=== PATIENT | male | born 2000 | race Caucasian/White ===

== ENCOUNTER 2022-08-22 17:01 | Emergency (ER) | payer SELFPAY ==
[2022-08-22] MEDS ORDERED: METHYLPREDNISOLONE 125 MG INJ ONE (17:26)
[2022-08-22] MEDS ORDERED: NA CHLORIDE 0.9% 1,000 ML ONE (17:26)
[2022-08-22] MEDS ORDERED: FAMOTIDINE 20 MG/2 ML VIAL IV ONE (17:26)
[2022-08-22] MEDS ORDERED: DIPHENHYDRAMINE 50 MG/ML VIAL ONE (17:26)
--- NOTE | 2022-08-22 19:30 | ER ---
Nurse's Notes [facility] Name: Alexander Saldivar Age: 22 yrs Sex: Male : 2000 Arrival Date: 08/22/2022 Time: 17:03 Bed 13 Private MD: Diagnosis: Rash and other nonspecific skin eruption Presentation: 08/22 17:05 Chief complaint: Sudden onset itchy rash and SOB that started approx 90 minutes after hb taking zofran and bentyl. Coronavirus screen: At this time, the client does not indicate any symptoms associated with coronavirus-19. Ebola Screen: No symptoms or risks identified at this time. Risk Assessment: Do you want to hurt yourself or someone else? Patient reports no desire to harm self or others. Onset of symptoms was August 22, 2022. 17:05 Method Of Arrival: Ambulatory hb 17:05 Acuity: PEEWEE 2 hb 19:00 Initial Sepsis Screen: Does the patient meet any 2 criteria? No. Patient's initial ke1 sepsis screen is negative. Does the patient have a suspected source of infection? No. Patient's initial sepsis screen is negative. Historical: - Allergies: 17:06 No Known Allergies; hb - Immunization history:: Adult Immunizations up to date. - Social history:: Smoking status: Patient reports the use of cigarette tobacco products, smokes one-half pack cigarettes per day. Screenin:15 Abuse screen: Denies threats or abuse. Denies injuries from another. Nutritional ko1 screening: No deficits noted. Tuberculosis screening: No symptoms or risk factors identified. Fall Risk None identified. Assessment: 17:15 General: Appears distressed, uncomfortable, Behavior is cooperative, appropriate for ko1 age, anxious. Pain: Complains of pain in abdomen. Neuro: No deficits noted. Cardiovascular: Rhythm is sinus tachycardia. Respiratory: Airway is patent Respiratory effort is even, labored, Breath sounds are clear bilaterally. GI: No deficits noted. : No deficits noted. EENT: No deficits noted. Derm: Rash noted that is itchy, raised, on generalized. Musculoskeletal: No deficits noted. 18:00 Reassessment: Patient has improved, less short of breath, whelps have decreased in size ko1 and itching is subsiding. 19:41 Reassessment: Patient states feeling better. Patient states symptoms have improved. ke1 Vital Signs: 17:05 BP 151 / 90; Pulse 102; Resp 24; Temp 99; Pulse Ox 100% on R/A; Weight 86.18 kg; Height hb 6 ft. 3 in. (190.50 cm); Pain 7/10; 17:15 BP 160 / 88; Pulse 108; Resp 24; Pulse Ox 100% ; ko1 18:35 BP 124 / 79; Pulse 89; Resp 18; Pulse Ox 100% ; ko1 19:41 BP 108 / 62; Pulse 82; Resp 17; Temp 98.6; Pulse Ox 100% on R/A; Pain 0/10; ke1 17:05 Body Mass Index 23.75 (86.18 kg, 190.50 cm) hb ED Course: 17:03 Patient arrived in ED. am2 17:05 Saeed Barton PA is PHCP. [facility] [place] 17:05 Placido Garner MD is Attending Physician. [facility] 17:06 Triage completed. hb 17:07 Arm band placed on. hb 17:15 Patient has correct armband on for positive identification. Bed in low position. Call ko1 light in reach. Side rails up X 1. Client placed on continuous cardiac and pulse oximetry monitoring. NIBP monitoring applied. electronic device monitor on. 17:15 No provider procedures requiring assistance completed. Inserted saline lock: 20 gauge ko1 in right antecubital area, using aseptic technique. 17:18 Letha Gee, RN is Primary Nurse. ko1 19:42 IV discontinued. ke1 Administered Medications: 17:25 Drug: diphenhydrAMINE 25 mg Route: IVP; Site: right antecubital; ko1 17:25 Drug: NS 0.9% 1000 ml Route: IV; Rate: 1 bolus; Site: right antecubital; ko1 17:31 Drug: SOLU-Medrol (methylPrednisoLONE) 125 mg Route: IVP; Site: right antecubital; ko1 17:32 Drug: Pepcid (famotidine) 20 mg Route: IVP; Site: right antecubital; ko1 Medication: 17:15 VIS not applicable for this client. ko1 Intake: 18:44 IV: 1000ml (IV Fluid); Total: 1000ml. ko1 Outcome: 19:29 Discharge ordered by . [facility] 19:41 Discharged to home ambulatory. ke1 19:41 Condition: good 19:41 Discharge instructions given to patient. 19:42 Patient left the ED. ke1 Signatures: Saeed Barton PA PA jmm Baxter, Heather, RN RN hb Cathy Wilkerson am2 Davin Thibodeaux RN RN ke1 Letha Gee RN RN ko1 Corrections: (The following items were deleted from the chart) 17:09 17:05 Chief complaint: Sudden onset rash and SOB that started approx 90 minutes after hb taking zofran and bentyl. hb
--- NOTE | 2022-08-22 19:30 | EDPHYS ---
Physician Documentation [facility] Name: Alexander Saldivar Age: 22 yrs Sex: Male : 2000 Arrival Date: 08/22/2022 Time: 17:03 Bed 13 Private MD: ED Physician Placido Garner HPI: 08/22 17:07 This 22 yrs old Male presents to ER via Ambulatory with complaints of Breathing jmm Difficulty, Allergic Reaction. 17:07 The patient has shortness of breath at rest. Onset: The symptoms/episode began/occurred jmm acutely, just prior to arrival, today. This is a 22-year-old male with history of depression presents ED with complaints of acute onset rash, shortness of breath. Patient states that he had a episode of abdominal pain, took Bentyl and Zofran. Patient quickly developed a generalized rash with itching. Patient states his abdominal pain is now currently resolved.. Historical: - Allergies: 17:06 No Known Allergies; hb - Immunization history:: Adult Immunizations up to date. - Social history:: Smoking status: Patient reports the use of cigarette tobacco products, smokes one-half pack cigarettes per day. ROS: 17:07 Constitutional: Negative for fever, chills, and weight loss, Cardiovascular: Negative jmm for chest pain, palpitations, and edema. 17:07 Respiratory: Positive for shortness of breath. 17:07 Skin: Positive for erythema, rash. 17:07 All other systems are negative. Exam: 17:07 Constitutional: This is a well developed, well nourished patient who is awake, alert, jmm and in no acute distress. Head/Face: atraumatic. Eyes: EOMI, no conjunctival erythema appreciated ENT: Moist Mucus Membranes Neck: Trachea midline, Supple Chest/axilla: Normal chest wall appearance and motion. Cardiovascular: Regular rate and rhythm. No edema appreciated Respiratory: Normal respirations, no respiratory distress appreciated Abdomen/GI: Non distended Back: Normal ROM 17:07 MS/ Extremity: Moves all extremities, no obvious deformities appreciated, no edema noted to the lower extremities Neuro: Awake and alert Psych: Behavior is normal, Mood is normal, Patient is cooperative and pleasant 17:07 Skin: and is diffusely located. Vital Signs: 17:05 BP 151 / 90; Pulse 102; Resp 24; Temp 99; Pulse Ox 100% on R/A; Weight 86.18 kg; Height hb 6 ft. 3 in. (190.50 cm); Pain 7/10; 17:15 BP 160 / 88; Pulse 108; Resp 24; Pulse Ox 100% ; ko1 18:35 BP 124 / 79; Pulse 89; Resp 18; Pulse Ox 100% ; ko1 19:41 BP 108 / 62; Pulse 82; Resp 17; Temp 98.6; Pulse Ox 100% on R/A; Pain 0/10; ke1 17:05 Body Mass Index 23.75 (86.18 kg, 190.50 cm) hb MDM: 17:07 Patient medically screened. [facility] 19:28 Data reviewed: vital signs, nurses notes. Counseling: I had a detailed discussion with riley the patient and/or guardian regarding: the historical points, exam findings, and any diagnostic results supporting the discharge/admit diagnosis, the need for outpatient follow up, to return to the emergency department if symptoms worsen or persist or if there are any questions or concerns that arise at home. ED course: Patient states feeling much better. Abdominal pain is resolved. Patient declined for further evaluation. Will follow with PCP and otherwise given strict return precautions. Patient sugars Medicare. 08/22 17:09 Order name: Saline Lock; Complete Time: 17:23 [facility] Administered Medications: 17:25 Drug: diphenhydrAMINE 25 mg Route: IVP; Site: right antecubital; ko1 17:25 Drug: NS 0.9% 1000 ml Route: IV; Rate: 1 bolus; Site: right antecubital; ko1 17:31 Drug: SOLU-Medrol (methylPrednisoLONE) 125 mg Route: IVP; Site: right antecubital; ko1 17:32 Drug: Pepcid (famotidine) 20 mg Route: IVP; Site: right antecubital; ko1 Disposition: 08/23 07:02 Co-signature as Attending Physician, Placido Garner MD. rn Disposition Summary: 08/22/22 19:29 Discharge Ordered Location: Home [facility] Condition: Stable jmm Diagnosis - Rash and other nonspecific skin eruption jmm Followup: jmm - With: Private Physician - When: 1 - 2 days - Reason: Recheck today's complaints, Continuance of care, Re-evaluation by your physician Discharge Instructions: - Discharge Summary Sheet [facility] - Allergies, Adult jmm - Rash, Adult [facility] Forms: - Medication Reconciliation Form [facility] - Thank You Letter [facility] - Antibiotic Education [facility] - Prescription Opioid Use [facility] Prescriptions: - Hydroxyzine HCl 25 mg Oral Tablet - take 1 tablet by ORAL route every 6 hours As needed; 30 tablet; Refills: 0, [facility] Product Selection Permitted - Pepcid 20 mg Oral Tablet - take 1 tablet by ORAL route every 12 hours As needed; 30 tablet; Refills: 0, [facility] Product Selection Permitted - Prednisone 20 mg Oral Tablet - take 3 tablets by ORAL route once daily for 5 days; 15 tablet; Refills: 0, [facility] Product Selection Permitted Signatures: Saeed Barton PA PA jmm Nieto, Roman, MD MD rn Baxter, Heather RN RN Letha Ovalle RN RN ko1
[2022-08-22 19:50] VITALS: O2SAT 100
[2022-08-22 19:55] VITALS: BP 108/62; TEMP 98.6
== END 2022-08-22 19:42 | disposition home or self-care (01) ==
LOC: ER 17:01
DX: R21 Rash and other nonspecific skin eruption (principal); R06.02 Shortness of breath; F17.210 Nicotine dependence, cigarettes, uncomplicated
CPT/HCPCS: 96374; 96375; 99284; J1200; J2930; J7030

== ENCOUNTER 2022-09-06 00:39 | Emergency (ER) | payer SELFPAY ==
--- OUTSIDE RECORDS SUMMARY | 2022-09-06 00:42 | XMS REPORT | Continuity of Care Document ---
:[address] [facility] t Address [address] [place] [address] Care Team Providers Name Role Phone NONSTAFF Primary Care Physician Unavailable TAMY CALLEJAS Attending Clinician Unavailable CRISTOFER VEGA Attending Clinician Unavailable YOLA Attending Clinician Unavailable VIOLETTA HAINES V Attending Clinician Unavailable YOLA Admitting Clinician Unavailable Payers Payer Name Policy Type Policy Effective Date Expiration Date Sour ce Number [place] [id number] 2018 ADVANTAGE (HMO) 00:00:00 [facility] [id number] [address] [id number] 2018 [facility] 00:00:00 Patient [facility] Problems This patient has no known problems. Allergies, Adverse Reactions, Alerts This patient has no known allergies or adverse reactions. Medications This patient has no known medications. Procedures This patient has no known procedures. Encounters Start End Encounter Admission Attending Care Care Encounter Source Date/Time Date/Time Type Type Clinicians Facility Department ID 2022-09-09 Inpatient TOM CALLEJAS [facility] [id number] [place] 08:00:00 TAMY [id number] [facility] 2022-08-13 Inpatient CRISTOFER BARTH [facility] [id number] [place] 10:30:00 [id number] [facility] 2020-08-06 2020-08-06 Outpatient SOLIS_SMITH MEHOP MEHOP [id number] [place] 05:03:00 05:03:00 _DAIN [id number] [facility] 2020-08-06 2020-08-06 Outpatient SOLIS_SMITH DEHOP MEHOP 104 [id number] [place] 05:03:00 05:03:00 _DAIN [id number] [facility] 2020-03-19 2020-03-19 Outpatient SOLIS_SMITH DEHOP [facility] 104 [id number] [place] 04:46:00 04:46:00 _DAIN [id number] [facility] 2019-01-10 2019-01-10 Departed DALEALLYJuan Pablo [facility] [id number] 11:35:00 15:45:00 Emergency VIOLETTA Lujan [place] [facility] Results Test Description Test Time Test Comments Results Result Sour e Comments CT SOFT TISSUE 2019-01-10 [facility] Patients NEXK WITH-HOPD 15:05:00 Medical [place] [address] Patient Name: JONO ZULETA MR #: [id number] : 2000 Age/Sex: 18/M Req #: [id number] Adm Physician: Ordered by: VIOLETTA HAINES MD Report #: [id number] Location: [facility] Room/Bed: Procedure: [id number] HOPD/CT SOFT TISSUE NEXK WITH-HOPD Exam Date: 01/10/19 Exam Time: 1300 REPORT STATUS: Signed CT SOFT TISSUE NECK WITH-HOPD HISTORY: Throat swelling COMPARISON: None. TECHNIQUE: Axial CT images were obtained through the neck with intravenous, iodine based contrast. Coronal and sagittal reconstructions obtained from the axial data. One or more of the following dose reduction techniques were used: Automated exposure control, adjustment of the mA and/or kV according to patient size, and/or utilization of iterative reconstruction technique. 100 mL of Isovue-370 were administered. DISCUSSION: The adenoid, palatine, and lingual tonsils are mildly prominent. Otherwise, the visualized upper aerodigestive tract is unremarkable. No discrete drainable fluid collection is identified. A few mildly prominent bilateral upper jugular chain lymph nodes may be reactive. No other radiographically significant cervical adenopathy is seen. The thyroid gland is unremarkable. The submandibular and parotid glands are unremarkable. The major cervical vessels are unremarkable. The topology professor, parapharyngeal, posterior cervical, and perivertebral spaces are unremarkable. The visualized intracranial compartment is grossly unremarkable. The paranasal sinuses are clear. No destructive osseous lesions are seen. The upper lungs are unremarkable. IMPRESSION: 1. Mildly prominent adenoid, palatine, and lingual tonsils. No discrete drainable fluid collection. 2. The visualized upper aerodigestive tract is otherwise unremarkable. 3. Mildly prominent bilateral upper jugular chain lymph nodes may be reactive. Signed by: Dr. Jakob Horowitz M.D. on 01/10/2019 3:10 PM Dictated By: JAKOB HOROWITZ MD 1510 Transcribed By: IGGY on 01/10/19 1510 COPY TO: VIOLETTA HAINES MD
[2022-09-06] MEDS ORDERED: NA CHLORIDE 0.9% 1,000 ML ONE ×2 (01:42→04:03)
[2022-09-06] MEDS ORDERED: FAMOTIDINE 20 MG/2 ML VIAL IV ONE (01:42)
[2022-09-06] MEDS ORDERED: ONDANSETRON 4 MG/2 ML VIAL ONE (01:42)
[2022-09-06] MEDS ORDERED: MORPHINE 4 MG/ML SYR ONE (01:44)
[2022-09-06] MEDS ORDERED: HYDROMORPHONE HCL 1 MG/ML INJ ONE (02:21)
[2022-09-06 02:24] LABS: Absolute Lymphocytes (CBC) 2.1 K/uL (0.7-4.9); Hematocrit 45.2 % (39.6-49.0); Lymphocytes % 14.2 % (15.3-44.8); MPV 8.4 fL (7.6-11.3); RBC Red Blood Cell Count 5.13 M/uL (4.33-5.43)
[2022-09-06 02:37] LABS: Albumin 4.3 g/dL (3.4-5.0); Bilirubin Total 0.4 mg/dL (0.2-1.0); Potassium 3.9 mmol/L (3.5-5.1); Protein, Total 8.2 g/dL (6.4-8.2)
--- NOTE | 2022-09-06 04:06 | ER ---
Nurse's Notes [facility] Name: Alexander Saldivar Age: 22 yrs Sex: Male : 2000 Arrival Date: 09/06/2022 Time: 00:43 Bed 14 Private MD: Diagnosis: Pneumomediastinum;Abdominal pain, Generalized;Upper abdominal pain, unspecified;Epigastric pain Presentation: 09/06 01:36 Chief complaint: Patient states: I have the worst pain right here(epigastric) It aa9 started today at 2 PM but its been happening for 4 months now, they have a hiatus scan scheduled like weeks from now, but the pain is really bad today. I have been throwing up and I have diarrhea. Coronavirus screen: Vaccine status: Patient reports being unvaccinated. Ebola Screen: No symptoms or risks identified at this time. Initial Sepsis Screen: Does the patient meet any 2 criteria? No. Patient's initial sepsis screen is negative. Does the patient have a suspected source of infection? No. Patient's initial sepsis screen is negative. Risk Assessment: Do you want to hurt yourself or someone else? Patient reports no desire to harm self or others. Onset of symptoms was September 06, 2022. 01:36 Method Of Arrival: Ambulatory aa9 01:36 Acuity: PEEWEE 3 aa9 Historical: - Allergies: 02:18 Bentyl; aa9 - Home Meds: 01:38 None [Active]; aa9 - PMHx: 01:38 None; aa9 - PSHx: 01:38 wisdom teeth removal; aa9 - Immunization history:: Client reports having NOT received the Covid vaccine. - Social history:: Smoking status: Patient reports the use of cigarette tobacco products, 1 pack a week. Screenin:39 Abuse screen: Denies threats or abuse. Denies injuries from another. Nutritional aa9 screening: No deficits noted. Tuberculosis screening: No symptoms or risk factors identified. Fall Risk None identified. Assessment: 01:44 General: Appears uncomfortable, Behavior is appropriate for age, anxious. aa9 01:44 Pain: Complains of pain in epigastric area Pain currently is 7 out of 10 on a pain aa9 scale. Quality of pain is described as stabbing, Pain began 1 day ago. Is continuous, Aggravated by eating, drinking, increased activity, Noted to be grimacing, guarding, moaning, Also complains of nausea. Neuro: Level of Consciousness is awake, alert, obeys commands, Oriented to person, place, time, situation. Cardiovascular: Patient's skin is warm and dry. Respiratory: Airway is patent Respiratory effort is even, unlabored. GI: Bowel sounds present X 4 quads. Abd is soft X 4 quads Abdomen is tender to palpation in epigastric area. : No signs and/or symptoms were reported regarding the genitourinary system. EENT: No signs and/or symptoms were reported regarding the EENT system. Derm: No signs and/or symptoms reported regarding the dermatologic system. Musculoskeletal: No signs and/or symptoms reported regarding the musculoskeletal system. 02:03 Reassessment: Patient appears in no apparent distress at this time. pt states,"The pain aa9 medicine seems to be helping.". General: Appears in no apparent distress. comfortable, Behavior is calm, cooperative, appropriate for age. Neuro: Level of Consciousness is awake, alert, obeys commands, Oriented to person, place, time, situation. Respiratory: Airway is patent Respiratory effort is even, unlabored. 02:10 General: Appears distressed, uncomfortable, Behavior is crying, pt states the pain came aa9 back worse, I feel like there is a hot knife in my stomach, This is the worst pain in my life, It was never returned like this before. . 02:10 Pain: Complains of pain in abdomen Pain radiates to back and pelvis Pain currently is aa9 10 out of 10 on a pain scale. Noted to be crying, grimacing. 02:29 Reassessment: Patient appears in no apparent distress at this time. pt states,"It feels aa9 a ton better now." Patient states feeling better. General: Appears uncomfortable, Behavior is calm, cooperative, appropriate for age. 04:34 Reassessment: Patient appears in no apparent distress at this time. pt aware of aa9 diagnosis and need for transfer, denies concerns, father at bedside denies concerns, understands diagnosis. Neuro: Level of Consciousness is awake, alert, obeys commands, Oriented to person, place, time, situation. Respiratory: Airway is patent Respiratory effort is even, unlabored. 07:03 Reassessment: attempted to give report. aa9 07:05 Reassessment: No changes from previously documented assessment. Report received from ll1 night monitor RN. Vital Signs: 01:30 BP 107 / 82; Pulse 62; Resp 16 S; Pulse Ox 100% on R/A; Pain 7/10; aa9 01:36 BP 107 / 82; Pulse 80; Resp 18 S; Temp 98.2(O); Pulse Ox 98% on R/A; Weight 86.18 kg aa9 (R); Height 6 ft. 3 in. (190.50 cm) (R); Pain 7/10; 02:05 BP 123 / 86; Pulse 66; Resp 16 S; Pulse Ox 100% on R/A; Pain 2/10; aa9 03:00 BP 124 / 76; Pulse 65; Resp 16 S; Pulse Ox 97% on R/A; aa9 04:30 BP 127 / 82; Pulse 64; Resp 16 S; Pulse Ox 97% on R/A; aa9 06:42 BP 121 / 79; Pulse 62; Resp 16 S; Temp 98.6; Pulse Ox 98% on R/A; aa9 01:36 Body Mass Index 23.75 (86.18 kg, 190.50 cm) aa9 ED Course: 00:43 Patient arrived in ED. ja2 01:20 Joey Stuart MD is Attending Physician. kdr 01:36 Arabella Mcgraw, RN is Primary Nurse. aa9 01:38 Triage completed. aa9 01:39 Arm band placed on. aa9 01:39 Patient has correct armband on for positive identification. Bed in low position. Adult aa9 w/ patient. 01:54 Inserted saline lock: 20 gauge in right antecubital area, using aseptic technique. aa9 Blood collected. 01:59 CBC with Diff Sent. aa9 01:59 CMP Sent. aa9 01:59 Lipase Sent. aa9 02:30 Diet: Patient given ice chips. aa9 02:30 Diet: Tolerated well. aa9 03:10 Diet: Patient given snack. Tolerated well. aa9 04:24 Inserted saline lock: 20 gauge in left antecubital area, using aseptic technique. kd3 04:29 CT Abd/Pelvis - IV Contrast Only In Process Unspecified. EDMS 04:44 CT Chest W/ Con In Process Unspecified. EDMS 05:22 SARS RAPID Sent. aa9 07:36 No provider procedures requiring assistance completed. Patient transferred, IV remains ll1 in place. Administered Medications: 02:01 Drug: NS 0.9% 1000 ml Route: IV; Rate: 1 bolus; Site: right antecubital; aa9 04:28 Follow up: Response: No adverse reaction; IV Status: Completed infusion; IV Intake: aa9 1000ml 02:01 Drug: Zofran (Ondansetron) 4 mg Route: IVP; Site: right antecubital; aa9 02:17 Follow up: Response: No adverse reaction aa9 02:02 Drug: Pepcid (famotidine) 20 mg Route: IVP; Site: right antecubital; aa9 02:17 Follow up: Response: No adverse reaction aa9 02:17 Drug: morphine 4 mg Route: IVP; Infused Over: 4 mins; Site: left antecubital; aa9 02:17 Follow up: Response: No adverse reaction aa9 02:25 Drug: Dilaudid (HYDROmorphone) 1 mg Route: IVP; Site: right antecubital; aa9 03:09 Follow up: Response: No adverse reaction; Pain is decreased aa9 04:06 Drug: NS 0.9% 1000 ml Route: IV; Rate: 1 bolus; Site: right antecubital; aa9 06:44 Follow up: IV Status: Completed infusion; IV Intake: 1000ml aa9 04:50 Drug: Ampicillin 2 grams Route: IVPB; Infused Over: 30 mins; Site: left antecubital; aa9 05:21 Follow up: Response: No adverse reaction; IV Status: Completed infusion; IV Intake: aa9 100ml 04:50 Drug: Clindamycin 900 mg Route: IVPB; Infused Over: 30 mins; Site: right antecubital; aa9 05:22 Follow up: Response: No adverse reaction; IV Status: Completed infusion; IV Intake: aa9 100ml 05:22 Drug: Gentamicin 1 mg/kg Route: IVPB; Infused Over: 30 mins; Site: left antecubital; aa9 06:44 Follow up: Response: No adverse reaction; IV Status: Completed infusion; IV Intake: aa9 100ml Medication: 02:04 VIS not applicable for this client. aa9 Intake: 04:28 IV: 1000ml; Total: 1000ml. aa9 05:21 IV: 100ml; Total: 1100ml. aa9 05:22 IV: 100ml; Total: 1200ml. aa9 06:44 IV: 1000ml; Total: 2200ml. aa9 06:44 IV: 100ml; Total: 2300ml. aa9 Outcome: 04:06 ER care complete, transfer ordered by . kdr 07:36 Transferred by ground EMS to [facility], Transfer form completed. [facility] 07:36 Transferred Note: report called to Chuck Rogers RN. 07:36 Condition: stable 07:36 Instructed on the need for transfer. 08:39 Patient left the ED. 1 Signatures: Dispatcher [employer] EDMS Joey Stuatr MD MD kdr Liliane Yoo RN RN ll1 Yaar Tracy Kyli, RN RN kd3 Arabella Mcgraw RN RN aa9
--- NOTE | 2022-09-06 04:06 | EDPHYS ---
Physician Documentation [facility] Name: Alexander Saldivar Age: 22 yrs Sex: Male : 2000 Arrival Date: 09/06/2022 Time: 00:43 Bed 14 Private MD: ED Physician Joey Stuart HPI: 09/06 04:07 This 22 yrs old Male presents to ER via Ambulatory with complaints of Abdominal Pain, kdr Vomiting. 04:07 Patient has been throwing up and having diarrhea since midday. Patient states that he kdr has been having intermittent abdominal pain for the last 4 months. He has had a gallbladder ultrasound and is awaiting a HIDA scan that is scheduled in the next few weeks. Today since 2 PM, he has been vomiting and with significant upper abdominal/epigastric pain. He is also had occasional diarrhea.. Onset: The symptoms/episode began/occurred suddenly, today. Severity of symptoms: At their worst the symptoms were moderate severe incapacitating in the emergency department the symptoms are unchanged. The patient has not experienced similar symptoms in the past. The patient has been recently seen by a physician: the patient's primary care provider. Historical: - Allergies: 02:18 Bentyl; aa9 - Home Meds: 01:38 None [Active]; aa9 - PMHx: 01:38 None; aa9 - PSHx: 01:38 wisdom teeth removal; aa9 - Immunization history:: Client reports having NOT received the Covid vaccine. - Social history:: Smoking status: Patient reports the use of cigarette tobacco products, 1 pack a week. ROS: 04:07 Constitutional: Negative for fever, chills, and weight loss, Eyes: Negative for injury, kdr pain, redness, and discharge, ENT: Negative for injury, pain, and discharge, Neck: Negative for injury, pain, and swelling, Cardiovascular: Negative for chest pain, palpitations, and edema, Respiratory: Negative for shortness of breath, cough, wheezing, and pleuritic chest pain, Back: Negative for injury and pain, : Negative for injury, bleeding, discharge, and swelling, MS/Extremity: Negative for injury and deformity, Skin: Negative for injury, rash, and discoloration, Neuro: Negative for headache, weakness, numbness, tingling, and seizure activity. Psych: Negative for depression, anxiety, suicide ideation, homicidal ideation, and hallucinations, Allergy/Immunology: Negative for hives, rash, and allergies, Endocrine: Negative for neck swelling, polydipsia, polyuria, polyphagia, and marked weight changes, Hematologic/Lymphatic: Negative for swollen nodes, abnormal bleeding, and unusual bruising. 04:07 Abdomen/GI: Positive for abdominal pain, nausea and vomiting, diarrhea, Negative for abdominal distension, anorexia, dysphagia, hematemesis, rectal bleeding, bowel incontinence. Exam: 04:08 Constitutional: This is a well developed, well nourished patient who is awake, alert, kdr and in moderate to severe distress. Head/Face: Normocephalic, atraumatic. Eyes: Pupils equal round and reactive to light, extra-ocular motions intact. Lids and lashes normal. Conjunctiva and sclera are non-icteric and not injected. Cornea within normal limits. Periorbital areas with no swelling, redness, or edema. Neck: Trachea midline, no thyromegaly or masses palpated, and no cervical lymphadenopathy. Supple, full range of motion without nuchal rigidity, or vertebral point tenderness. No Meningismus. Chest/axilla: Normal chest wall appearance and motion. Nontender with no deformity. No lesions are appreciated. Cardiovascular: Regular rate and rhythm with a normal S1 and S2. No gallops, murmurs, or rubs. Normal PMI, no JVD. No pulse deficits. Respiratory: Lungs have equal breath sounds bilaterally, clear to auscultation and percussion. No rales, rhonchi or wheezes noted. No increased work of breathing, no retractions or nasal flaring. Back: No spinal tenderness. No costovertebral tenderness. Full range of motion. Skin: Warm, dry with normal turgor. Normal color with no rashes, no lesions, and no evidence of cellulitis. MS/ Extremity: Pulses equal, no cyanosis. Neurovascular intact. Full, normal range of motion. Neuro: Awake and alert, GCS 15, oriented to person, place, time, and situation. Cranial nerves II-XII grossly intact. Motor strength 5/5 in all extremities. Sensory grossly intact. Cerebellar exam normal. Normal gait. Psych: Awake, alert, with orientation to person, place and time. Behavior, mood, and affect are within normal limits. 04:08 Abdomen/GI: Inspection: abdomen appears normal, Bowel sounds: active, diminished, in all quadrants, Palpation: moderate abdominal tenderness, in the epigastric area, right upper quadrant and left upper quadrant. Vital Signs: 01:30 BP 107 / 82; Pulse 62; Resp 16 S; Pulse Ox 100% on R/A; Pain 7/10; aa9 01:36 BP 107 / 82; Pulse 80; Resp 18 S; Temp 98.2(O); Pulse Ox 98% on R/A; Weight 86.18 kg aa9 (R); Height 6 ft. 3 in. (190.50 cm) (R); Pain 7/10; 02:05 BP 123 / 86; Pulse 66; Resp 16 S; Pulse Ox 100% on R/A; Pain 2/10; aa9 03:00 BP 124 / 76; Pulse 65; Resp 16 S; Pulse Ox 97% on R/A; aa9 04:30 BP 127 / 82; Pulse 64; Resp 16 S; Pulse Ox 97% on R/A; aa9 06:42 BP 121 / 79; Pulse 62; Resp 16 S; Temp 98.6; Pulse Ox 98% on R/A; aa9 01:36 Body Mass Index 23.75 (86.18 kg, 190.50 cm) aa9 MDM: 04:06 Patient medically screened. kdr 04:09 Data reviewed: vital signs, nurses notes, lab test result(s), radiologic studies. kdr Counseling: I had a detailed discussion with the patient and/or guardian regarding: the historical points, exam findings, and any diagnostic results supporting the discharge/admit diagnosis, lab results, radiology results, the need to transfer to another facility. 09/06 01:20 Order name: CBC with Diff; Complete Time: 04:21 kdr 09/06 01:20 Order name: CMP; Complete Time: 04:21 kdr 09/06 01:20 Order name: Lipase; Complete Time: 04:21 kdr 09/06 02:18 Order name: CT Abd/Pelvis - IV Contrast Only kdr 09/06 04:30 Order name: SARS RAPID; Complete Time: 05:29 aa9 09/06 04:31 Order name: SARS RAPID bb 09/06 04:01 Order name: CT Chest W/ Con kdr 09/06 01:20 Order name: IV Saline Lock; Complete Time: 01:59 kdr 09/06 01:20 Order name: Labs collected and sent; Complete Time: kdr Administered Medications: 02:01 Drug: NS 0.9% 1000 ml Route: IV; Rate: 1 bolus; Site: right antecubital; aa9 04:28 Follow up: Response: No adverse reaction; IV Status: Completed infusion; IV Intake: aa9 1000ml 02:01 Drug: Zofran (Ondansetron) 4 mg Route: IVP; Site: right antecubital; aa9 02:17 Follow up: Response: No adverse reaction aa9 02:02 Drug: Pepcid (famotidine) 20 mg Route: IVP; Site: right antecubital; aa9 02:17 Follow up: Response: No adverse reaction aa9 02:17 Drug: morphine 4 mg Route: IVP; Infused Over: 4 mins; Site: left antecubital; aa9 02:17 Follow up: Response: No adverse reaction aa9 02:25 Drug: Dilaudid (HYDROmorphone) 1 mg Route: IVP; Site: right antecubital; aa9 03:09 Follow up: Response: No adverse reaction; Pain is decreased aa9 04:06 Drug: NS 0.9% 1000 ml Route: IV; Rate: 1 bolus; Site: right antecubital; aa9 06:44 Follow up: IV Status: Completed infusion; IV Intake: 1000ml aa9 04:50 Drug: Ampicillin 2 grams Route: IVPB; Infused Over: 30 mins; Site: left antecubital; aa9 05:21 Follow up: Response: No adverse reaction; IV Status: Completed infusion; IV Intake: aa9 100ml 04:50 Drug: Clindamycin 900 mg Route: IVPB; Infused Over: 30 mins; Site: right antecubital; aa9 05:22 Follow up: Response: No adverse reaction; IV Status: Completed infusion; IV Intake: aa9 100ml 05:22 Drug: Gentamicin 1 mg/kg Route: IVPB; Infused Over: 30 mins; Site: left antecubital; aa9 06:44 Follow up: Response: No adverse reaction; IV Status: Completed infusion; IV Intake: aa9 100ml Disposition Summary: 09/06/22 04:06 Transfer Ordered Transfer Location: [facility] kdr Reason: Higher level of care kdr Condition: Fair kdr Problem: new kdr Symptoms: have improved kdr Accepting Physician: katerine(09/06/22 08:39) ll1 Diagnosis - Pneumomediastinum kdr - Abdominal pain, Generalized kdr - Upper abdominal pain, unspecified kdr - Epigastric pain kdr Forms: - Medication Reconciliation Form kdr - SBAR form kdr Signatures: Dispatcher [employer] EDJoey Ortiz MD MD kdr Liliane Yoo RN RN ll1 Arabella Mcgraw RN RN aa9 Corrections: (The following items were deleted from the chart) 08:39 04:06 katerine kdr ll1
[2022-09-06] MEDS ORDERED: AMPICILLIN SODIUM 500 MG VIAL ONE (04:12)
[2022-09-06] MEDS ORDERED: CLINDAMYCIN 900MG/D5W 900 MG/50 ML IVPB IV ONE (04:12)
[2022-09-06] MEDS ORDERED: NA CHLORIDE 0.9% 100 ML IV ONE (04:12)
[2022-09-06] MEDS ORDERED: GENTAMICIN 80 MG/100 ML BAG 80 MG/100 ML BAG IV ONE (04:12)
[2022-09-06 05:27] LABS: SARS-CoV-2 Antigen Rapid Res Negative (Negative)
[2022-09-06 08:55] VITALS: BP 121/79; TEMP 98.6; O2SAT 98
--- NOTE | 2022-09-06 10:40 | RAD REPORT ---
EXAM DESCRIPTION: CT - Thorax W/ Con - 09/06/2022 4:43 am CLINICAL HISTORY: The patient is 22 years old and is Male; Free air in mediastinum TECHNIQUE: Axial computed tomography images of the chest with intravenous contrast. Sagittal and c oronal reformatted images were created and reviewed. This CT exam was performed using one or more o f the following dose reduction techniques: automated exposure control, adjustment of the mA and/or kV according to patient size, and/or use of iterative reconstruction technique. COMPARISON: No relevant prior studies available. FINDINGS: LUNGS: Unremarkable. No mass. No consolidation. PLEURAL SPACE: Lungs are well-aerated clear bilaterally. No pleural effusion. No focal consolidatio n. No pneumothorax. HEART: Unremarkable. No cardiomegaly. No significant pericardial effusion. No significant cor onary artery calcifications. BONES/JOINTS: Unremarkable. No acute fracture. No dislocation. SOFT TISSUES: Unremarkable. VASCULATURE: Unremarkable. No thoracic aortic aneurysm. LYMPH NODES: Unremarkable. No enlarged lymph nodes. MEDIASTINUM: Small to moderate volume of diffuse pneumomediastinum with possible esophageal rupture identified in the left anterolateral aspect of the proximal esophagus just above the aortic arch ( axial image 16/68, though exact location is difficult given small size of rupture and decompressed es ophagus). Findings are most consistent with Boerhaave syndrome. Cardiothoracic surgical consultation recommended. No significant free fluid or suspicious fluid collection identified within the mediastin um. IMPRESSION: 1. Small to moderate volume of diffuse pneumomediastinum with possible esophageal rupt ure identified in the left anterolateral aspect of the proximal esophagus just above the aortic arc h (axial image 16/68, though exact location is difficult given small size of rupture and decompressed esophagus). Findings are most consistent with Boerhaave syndrome. Cardiothoracic surgical consultati on recommended. 2. No significant mediastinal free fluid or fluid collection. 3. No pneumothorax. No other acute cardiopulmonary abnormalities. Dr. Hendricks discussed these findings with Dr. Stuart via telephone at approximately 05:00 hours FOLDER AND NOTCHER on 09/06/2022. Electronically signed by: Lars Hendricks MD 09/06/2022 5:09 AM FOLDER AND NOTCHER Due to temporary technical issues with the PACS/Fluency reporting system, reports are being signed by the in house radiologists without review as a courtesy to insure prompt reporting. The interpreting radiologist is fully responsible for the content of the report.
--- NOTE | 2022-09-06 11:11 | RAD REPORT ---
EXAM DESCRIPTION: CT - Abdomen Pelvis W Contrast - 09/06/2022 3:27 am ADDENDUM #1 Addendum: Dr. Hendricks discussed these critical findings, impression, and recommendations for further imaging with Dr. Stuart via telephone at approximately 03:57 hours IT ADMINISTRATOR on 09/06/2022. Dr. Stuart reportedly the patient had indeed been vomiting. Electronically signed by: Lars Hendricks MD 09/06/2022 4:01 AM IT ADMINISTRATOR End of Addendum EXAM DESCRIPTION: CT Abdomen and Pelvis With Intravenous Contrast CLINICAL HISTORY: The patient is 22 years old and is Male; Epigastric pain TECHNIQUE: Axial computed tomography images of the abdomen and pelvis with intravenous contrast. S agittal and coronal reformatted images were created and reviewed. This CT exam was performed using one or more of the following dose reduction techniques: automated exposure control, adjustment of t he mA and/or kV according to patient size, and/or use of iterative reconstruction technique. COMPARISON: 12/01/2016 CT abdomen pelvis with contrast FINDINGS: LUNG BASES: Unremarkable. No mass. No consolidation. ABDOMEN: LIVER: Unremarkable. No mass. GALLBLADDER AND BILE DUCTS: Unremarkable. No calcified stones. No ductal dilation. PANCREAS: Unremarkable. No mass. No ductal dilation. SPLEEN: Unremarkable. No splenomegaly. ADRENALS: Unremarkable. No mass. KIDNEYS AND URETERS: Unremarkable. No solid mass. No hydronephrosis. STOMACH AND BOWEL: Unremarkable. No obstruction. No mucosal thickening. PELVIS: APPENDIX: No findings to suggest acute appendicitis. BLADDER: Unremarkable. No mass. REPRODUCTIVE: Unremarkable as visualized. ABDOMEN and PELVIS: INTRAPERITONEAL SPACE: Several foci of suspected mediastinal gas/free air demonstrated anterior to the partially visualized superior vena cava cava (images 1-4/52). Tiny loculated focus of possible pn eumothorax noted along the left paraesophageal pleural space. Recommend further imaging of the chest to evaluate for possible esophageal rupture or other source of possible pneumomediastinum/pneumothora x, such Boerhaave syndrome. No significant fluid collection. 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 No acute fracture. No dislocation. SOFT TISSUES: Tiny fat-containing umbilical hernia. VASCULATURE: Visualized descending thoracic and abdominal aorta are normal in course and caliber wi thout evidence of dissection. LYMPH NODES: Unremarkable. No enlarged lymph nodes. IMPRESSION: 1. Suspected pneumomediastinum demonstrated anterior to the partially visualized superio r vena cava cava (images 1-4/52) and along the left paraesophageal space versus pleural space. Recomm end further imaging of the chest to evaluate for possible esophageal rupture or other source of possi ble pneumomediastinum/pneumothorax, such Boerhaave syndrome. 2. No acute abnormality within the abdomen or pelvis. Electronically signed by: Lars Hendricks MD 09/06/2022 3:54 AM IT ADMINISTRATOR Due to temporary technical issues with the PACS/Fluency reporting system, reports are being signed by the in house radiologists without review as a courtesy to insure prompt reporting. The interpreting radiologist is fully responsible for the content of the report.
== END 2022-09-06 08:39 | disposition short-term general hospital (02) ==
LOC: ER 00:39
DX: J98.2 Interstitial emphysema (principal); R10.84 Generalized abdominal pain; R10.13 Epigastric pain; R10.10 Upper abdominal pain, unspecified; Z20.822 Contact with and (suspected) exposure to COVID-19
CPT/HCPCS: 36415; 71260; 74177; 80053; 83690; 85025; 87811; 99285; J0290; J1170; J1580; J2405; J7030; Q9967

== ENCOUNTER 2022-09-20 20:17 | Emergency (ER) | payer SELFPAY ==
--- OUTSIDE RECORDS SUMMARY | 2022-09-20 20:21 | XMS REPORT | Continuity of Care Document ---
:2000 Author Organization [facility] t Address [address] [place] [address] Care Team Providers Name Role Phone NONSTAFF Primary Care Physician Unavailable TAMY CALLEJAS Attending Clinician Unavailable CRISTOFER VEGA Attending Clinician Unavailable SEAN MOODY V. Attending Clinician Unavailable Kiki Ortiz MD Attending Clinician Kristal Javier MD Attending Clinician Rachael Mulligan MD Attending Clinician Sean Moody MD, V. Attending Clinician KIKI ORTIZ Attending Clinician Unavailable YOLA Attending Clinician Unavailable VIOLETTA HAINES V Attending Clinician Unavailable KRISTAL JAVIER Admitting Clinician Unavailable YOLA Admitting Clinician Unavailable Payers Payer Name Policy Type Policy Effective Date Expiration Date Sour ce Number [place] [id number] 2018 ADVANTAGE (HMO) 00:00:00 CLAUDETTE [id number] [facility] 3 [facility] [id number] [address] [facility] H[facility] 00:00:00 Patient Medical Center Problems Condition Condition Condition Status Onset Resolution Last Treating Co mments Source Name Details Category Date Date Treatment Clinician Date Pneumomedi Pneumomedi Disease Active 2021-[address] [facility]um [facility]06 [facility] Allergies, Adverse Reactions, Alerts Allergy Allergy Status Severity Reaction(s) Onset Inactive Treating Comm ents Source Name Type Date Date Clinician DICYCLOM Allergy Active High Sob 2021-10 [facility] INE 11-06 00:00: 00 ONDANSET Allergy Active High Sob 2021-10 [facility] JOSE 11-06 00:00: 00 Dicyclom Propensi Active Shortness Of 2021-[address] [facility] to Breath, Rash - [facility] adverse 00:00: Medical reaction 00 Center s Ondanset Propensi Active Shortness Of 2021-[address] [facility] jose ty to Breath, Rash 07 [facility] adverse 00:00: Medical reaction 00 Center s NO KNOWN Allergy Active [facility] ALLERGIE S Social History Social Habit Start Date Stop Date Quantity Comments Source History SDOH [facility] Exposure to 2022-08-27 2022-09-[address] [facility] SARS-CoV-2 (event) 00:00:00 10:55:00 Medica l Center History SDOH Housing 2022-09-06 2022-09-[address] [facility] Homeless Last Year 00:00:00 00:00:00 Medica l Center History SDOH 2022-09-06 2022-09-[address] [facility] Transport Med 00:00:00 00:00:[address] History SDOH Housing 2022-09-06 2022-09-[address] [facility] Unable to Pay 00:00:00 00:00:[address] History SDOH Housing 2022-09-06 2022-09-[address] [facility] Places Lived 00:00:00 00:00:00 Medical Cent er Sex Assigned At [address] [facility] 00:00:00 00:00:00 Medical Center Medications Ordered Filled Start Stop Current Ordering Indication Dosage Frequency Signature Comments Components Source Medication Medication Date Date Medication? Clinician (SIG) Name Name famotidine 2021-10 Yes 20mg Take [address] (PEPCID) 20 0-25 by mouth [facility] MG tablet 00:00: every 12 Medi chace 00 (twelve) Center hours as needed. hydrOXYzine 2021-10 Yes 25mg Take [address] (ATARAX) 25 0-25 by mouth [facility] MG tablet 00:00: every 6 Medic al 00 (six) Center hours as needed. predniSONE 2021-10 60mg QD Take [address] (DELTASONE) 0-25 11-08 by mouth Yuri es 10 MG 00:00: 00:00 daily. Medical tablet 00 :00 Center dicyclomine 2021-10 Yes 10mg [id number] Take [address] (BENTYL) 10 0-11 [id number] by mouth 3 [facility] MG capsule 00:00: 3D (three) Medi chace 00 times Center daily. ondansetron 2021-10 Yes 8mg Take [address] (ZOFRAN-ODT 0-11 by mouth Luke s ) 8 MG 00:00: every 8 Medical disintegrat 00 (eight) Cente r ing tablet hours as needed. Vital Signs Vital Name Observation Time Observation Value Comments Source HEIGHT 2022-09-06 10:00:00 190.5 cm WEIGHT 2022-09-06 10:00:00 84.732 kg HEIGHT 2022-09-06 10:00:00 190.5 cm WEIGHT 2022-09-06 10:00:00 84.732 kg HEIGHT 2022-09-06 10:00:00 190.5 cm WEIGHT 2022-09-06 10:00:00 84.732 kg Systolic blood 2022-09-07 07:00:00 115 mm[Hg] [facility] Diastolic blood 2022-09-07 07:00:00 62 mm[Hg] [facility] Heart rate 2022-09-07 07:00:00 62 /min [facility] Body temperature 2022-09-07 07:00:[address] [facility] Respiratory rate 2022-09-07 07:00:00 18 /min [facility] Oxygen saturation in 2022-09-07 07:00:00 99 /min [facility] Arterial blood by Medical Ce nter Pulse oximetry Body height 2022-09-06 10:00:00 190.5 cm [facility] Body weight 2022-09-06 10:00:00 84.732 kg [facility] BMI 2022-09-06 10:00:00 23.35 kg/m2 [facility] Procedures Procedure Date / Time Performed Performing Clinician Sourc e CBC W/PLT COUNT & AUTO 2022-09-07 04:55:[address] [facility] CBC W/PLT COUNT & AUTO 2022-09-07 04:55:[address] [facility] BASIC METABOLIC PANEL 2022-09-07 04:54:00 Kristal Javier [facility] [place] ESOPHAGUS 2022-09-06 13:55:[address] [facility] Plan of Care Planned Activity Planned Date Details Comments Source Future Scheduled 2022-07-01 INFLUENZA VACCINE [facility] Test 00:00:00 (#1) [code = [facility] INFLUENZA VACCINE (#1)] Future Scheduled 2021-10-31 DEPRESSION SCREENING [facility] Test 00:00:00 (12+) [code = [facility] DEPRESSION SCREENING (12+)] Future Scheduled 2017 DTAP/TDAP/TD [facility]ACCIN[facility] Test 00:00:00 (1 - Tdap) [code = Medical enter DTAP/TDAP/TD VACCINES (1 - Tdap)] Future Scheduled 2016 HEPATITIS C SCRE[facility] Test 00:00:00 [code = HEPATITIS C [facility] SCREENING] Future Scheduled 2010 Tobacco Cessation [facility] Test 00:00:00 [facility] Cent[facility] r Screening (12+) [code = Tobacco Cessation Counseling and Screening (12+)] Future Scheduled 1998 COVID-19 VACCINE (#1) [facility] Test 00:00:00 [code = COVID-[address] VACCINE (#1)] Encounters Start End Encounter Admission Attending Care Care Encounter Source Date/Time Date/Time Type Type Clinicians Facility Department ID 2022-10-01 Inpatient TOM CALLEJAS [facility] [id number] [place] 09:00:00 TAMY [id number] [facility] 2022-09-17 Inpatient [facility] [id number] [facility] 14:08:35 [id number] [place] 2022-09-09 Inpatient TOM CALLEJAS [facility] [id number] [place] 08:00:00 TAMY -[id number] [facility] 2022-08-13 Inpatient CRISTOFER BARTH [facility] [id number] [place] 10:30:00 -[id number] [facility] 2022-09-06 2022-09-07 Inpatient [facility] [id number] [facility] 09:47:00 12:27:00 SEAN 2022-09-06 2022-09-07 [facility] Ortiz Kiki Nallely [facility] [id number] [facility] St 09:47:00 12:27:00 Encounter Kristal Javier [facility] Sean Moody V. [place] 2022-09-06 2022-09-06 Travel [facility] [id number] [facility] 00[facility]00 [facility] 2020-08-06 2020-08-06 Outpatient SOLIS_SMITH ARHOP [facility] [id number] [place] 05:03:00 05:03:00 _DAIN [id number] [facility] 2020-08-06 2020-08-06 Outpatient SOLIS_SMITH ARHOP [facility] 104 [id number] [place] 05:03:00 05:03:00 _DAIN [id number] [facility] 2020-03-19 2020-03-19 Outpatient [facility] 104 [id number] [place] 04:46:00 04:46:00 _DAIN [id number] [facility] 2019-01-10 2019-01-10 Departed 1 ZAKI, [facility] [id number] 11:35:00 15:45:00 Emergency VIOLETTA [facility] Results Test Description Test Time Test Comments Results Result Comments Source BASIC METABOLIC PANEL 2022-09-07 08:05:14 Test Item Value Reference Range Interpretation Comme nts SODIUM (BEAKER) (test 136 meq/L 136-145 code = 381) POTASSIUM (BEAKER) 3.9 meq/L 3.5-5.1 (test code = 379) CHLORIDE (BEAKER) (test 105 meq/L 98-107 code = 382) CO2 (BEAKER) (test code 22 meq/L 22-29 = 355) BLOOD UREA NITROGEN 8 mg/dL 7-21 (BEAKER) (test code = 354) CREATININE (BEAKER) 0.80 mg/dL 0.57-1.25 (test code = 358) GLUCOSE RANDOM (BEAKER) 75 mg/dL 70-105 (test code = 652) CALCIUM (BEAKER) (test 9.5 mg/dL 8.4-10.2 code = 697) EGFR (BEAKER) (test 127 mL/min/1.73 sq I nterpretation of eGFR values code = 1092) m Stage Descripti on Result G1 Normal or high >=90 G2 Mildly decreased 60-89 G3a Mildly to moderately 45-5 9 G3b Moderately to severely 30 -44 G4 Severly decreased 15-29 G5 Kidney failure <15Repo rted eGFR is based on the CK D-EPI 2020 equation that d oes not use a race coefficien tEstimated GFR is not as accurate as Creatinine Clearance in pr edicting glomerular filt ration rate. Estimated GFR i s not applicable for dialysis chilo ramirez Document Management Technician ID - PIBABS LOperator ID - PIAYA LCBC W/PLT COUNT & AUTO [id number] 05:49:48 Test Item Value Reference Range Interpretation Comments WHITE BLOOD CELL COUNT (BEAKER) 9.3 K/ L 3.5-10.5 (test code = 775) RED BLOOD CELL COUNT (BEAKER) 4.69 M/ L 4.63-6.08 (test code = 761) HEMOGLOBIN (BEAKER) (test code = 13.9 GM/DL 13.7-17.5 410) HEMATOCRIT (BEAKER) (test code = 41.9 % 40.1-51.0 411) MEAN CORPUSCULAR VOLUME (BEAKER) 89 fL 79-92 (test code = 753) MEAN CORPUSCULAR HEMOGLOBIN 29.6 pg 25.7-32.2 (BEAKER) (test code = 751) MEAN CORPUSCULAR HEMOGLOBIN CONC 33.2 GM/DL 32.3-36.5 (BEAKER) (test code = 752) RED CELL DISTRIBUTION WIDTH 13.6 % 11.6-14.4 (BEAKER) (test code = 412) PLATELET COUNT (BEAKER) (test 226 K/CU MM 150-450 code = 756) MEAN PLATELET VOLUME (BEAKER) 10.8 fL 9.4-12.4 (test code = 754) NUCLEATED RED BLOOD CELLS 0 /100 WBC 0-0 (BEAKER) (test code = 413) NEUTROPHILS RELATIVE PERCENT 58 % (BEAKER) (test code = 429) LYMPHOCYTES RELATIVE PERCENT 28 % (BEAKER) (test code = 430) MONOCYTES RELATIVE PERCENT 9 % (BEAKER) (test code = 431) EOSINOPHILS RELATIVE PERCENT 6 % (BEAKER) (test code = 432) BASOPHILS RELATIVE PERCENT 0 % (BEAKER) (test code = 437) NEUTROPHILS ABSOLUTE COUNT 5.34 K/ L 1.78-5.38 (BEAKER) (test code = 670) LYMPHOCYTES ABSOLUTE COUNT 2.59 K/ L 1.32-3.57 (BEAKER) (test code = 414) MONOCYTES ABSOLUTE COUNT (BEAKER) 0.79 K/ L 0.30-0.82 (test code = 415) EOSINOPHILS ABSOLUTE COUNT 0.54 K/ L 0.04-0.54 (BEAKER) (test code = 416) BASOPHILS ABSOLUTE COUNT (BEAKER) 0.02 K/ L 0.01-0.08 (test code = 417) IMMATURE GRANULOCYTES-RELATIVE 0.20 % 0.00-1.00 PERCENT (BEAKER) (test code = 2801) [place], [id number] 16:13:00Reason for exam:->presented with pneumomediatstinum, [facility] 2000 Sex: MFINAL REPORT Gastrografin esophagogram Clinical History: presented with pneumomediastinum, eval for esophageal perforation Discussion: Gastrografin is given to the patient to drink, without difficulties. The esophageal motility, and caliber is normal. No contrast extravasation. Fluoro time: 0.6 minutes Number of images obtained: 6 Signed: Magdalena Julien Verified Date/Time: 09/06/2022 16:13:21 Reading Location: [address] Consult Reading Room [facility] CAMPUST SOFT TISSUE NEXK [id number] 15:05:00 [place] [address] PatientName: JONO ZULETA MR #: [id number] : 2000 Age/Sex: 18/M Req #: [id number] Adm Physician: Ordered by: VIOLETTA HAINES MD Report #: [id number] Location: [facility] Room/Bed: Procedure: [id number] HOPD/CT SOFT TISSUE NEXK WITH-HOPD Exam Date: 01/10/19 Exam Time: 1300 REPORT STATUS: Signed CT SOFT TISSUE NECK WITH-HOPD HISTORY: Throat swelling COMPARISON: None. TECHNIQUE: Axial CT images were obtained through the neck with intravenous, iodine based contrast. Coronal andsagittal reconstructions obtained from the axial data. One [...] unremarkable. No discrete drainable fluid collection is identified.A few mildly prominent bilateral upper jugular chain lymph nodes may be reactive. No other radiographically significant cervical adenopathy is seen. The thyroid gland is unremarkable. The submandibularand parotid glands are unremarkable. The major cervical vessels are unremarkable. The integrity specialist, parapharyngeal, posterior cervical, and perivertebral spaces are [...]
[2022-09-20] MEDS ORDERED: FAMOTIDINE 20 MG/2 ML VIAL IV ONE (20:45)
[2022-09-20] MEDS ORDERED: ONDANSETRON 4 MG/2 ML VIAL ONE (20:45)
[2022-09-20] MEDS ORDERED: NA CHLORIDE 0.9% 1,000 ML ONE (20:46)
[2022-09-20] MEDS ORDERED: NA CHLORIDE 0.9% 100 ML IV ONE (21:08)
[2022-09-20] MEDS ORDERED: PANTOPRAZOLE 40 MG INJ ONE (21:08)
[2022-09-20] MEDS ORDERED: MORPHINE 4 MG/ML SYR ONE (21:08)
[2022-09-20] MEDS ORDERED: PIPERACIL/TAZO 3.375 GM VIAL IV ONE (21:09)
[2022-09-20 21:13] LABS: Absolute Lymphocytes (CBC) 3.1 K/uL (0.7-4.9); Hematocrit 44.6 % (39.6-49.0); Lymphocytes % 33.9 % (15.3-44.8); MCV 87.3 fL (80-100); MPV 8.2 fL (7.6-11.3)
--- NOTE | 2022-09-20 21:22 | RAD REPORT ---
EXAM DESCRIPTION: RAD - Chest Single View - 09/20/2022 9:16 pm CLINICAL HISTORY: Chest pain Chest pain. COMPARISON: <Comparisons> FINDINGS: Portable technique limits examination quality. The lungs are grossly clear. The heart is normal in size. No displaced fractures. IMPRESSION: No acute intrathoracic process suspected.
--- NOTE | 2022-09-20 21:25 | RAD REPORT ---
EXAM DESCRIPTION: CT - Chest Abdomen Pelvis W Cont - 09/20/2022 9:08 pm CLINICAL HISTORY: Chest and abdomen pain. pain COMPARISON: No comparisonsThorax W/ Con dated 09/06/2022; Abdomen Pelvis W Contrast dated 09/06/2022 TECHNIQUE: Approximately 100 mL nonionic IV contrast was administered to the patient. All CT scans are performed using dose optimization technique as appropriate and may include automated exposure control or mA/KV adjustment according to patient size. FINDINGS: The lungs are clear.No pleural or pericardial effusion.No intrathoracic adenopathy. The liver, spleen, pancreas, adrenal glands and kidneys are within normal limits. No bowel obstruction, free air, free fluid or abscess. Normal appendix. No pathologic lymphadenopath y in the abdomen or pelvis. No worrisome osseous finding. IMPRESSION: No acute abnormality is detected.
[2022-09-20] MEDS ORDERED: HYDROMORPHONE HCL 2 MG/ML inj ONE ×2 (21:55→22:02)
--- NOTE | 2022-09-20 22:14 | RAD REPORT ---
EXAM DESCRIPTION: US - Abdomen Exam Limited - 09/20/2022 10:09 pm CLINICAL HISTORY: ABD PAIN COMPARISON: No comparisons FINDINGS: The gallbladder demonstrates no gallstones. No pericholecystic fluid or gallbladder wall t hickening. The common bile duct is normal measuring 4 mm. The liver demonstrates no findings of intrahepatic biliary dilatation. IMPRESSION: Unremarkable examination.
--- NOTE | 2022-09-20 22:31 | EDPHYS ---
Physician Documentation [facility] Name: Alexander Saldivar Age: 22 yrs Sex: Male : 2000 Arrival Date: 09/20/2022 Time: 20:19 Bed 24 Private MD: ED Physician Rico Baer HPI: 09/20 20:52 This 22 yrs old Black Male presents to ER via Ambulatory with complaints of Abdominal manjeet Cramping. Historical: - Allergies: 20:41 Bentyl; jh5 - PSHx: 20:41 wisdom teeth removal; [facility] - Immunization history:: Adult Immunizations up to date. - Social history:: Smoking status: Patient reports the use of cigarette tobacco products, smokes one-half pack cigarettes per day. ROS: 20:52 Constitutional: Negative for fever, chills, and weight loss, Eyes: Negative for injury, manjeet pain, redness, and discharge, ENT: Negative for injury, pain, and discharge, Neck: Negative for injury, pain, and swelling, Back: Negative for injury and pain, : Negative for injury, bleeding, discharge, and swelling, MS/Extremity: Negative for injury and deformity, Skin: Negative for injury, rash, and discoloration, Neuro: Negative for headache, weakness, numbness, tingling, and seizure, Psych: Negative for depression, anxiety, suicide ideation, homicidal ideation, and hallucinations, Allergy/Immunology: Negative for hives, rash, and allergies, Endocrine: Negative for neck swelling, polydipsia, polyuria, polyphagia, and marked weight changes, Hematologic/Lymphatic: Negative for swollen nodes, abnormal bleeding, and unusual bruising. 20:52 Cardiovascular: Positive for chest pain, of the chest and abdomen. 20:52 Respiratory: Positive for shortness of breath, at rest. 20:52 Abdomen/GI: Positive for abdominal pain, nausea, of the epigastric area, right upper quadrant and left upper quadrant. Exam: 20:52 Head/Face: Normocephalic, atraumatic. Eyes: Pupils equal round and reactive to light, manjeet extra-ocular motions intact. Lids and lashes normal. Conjunctiva and sclera are non-icteric and not injected. Cornea within normal limits. Periorbital areas with no swelling, redness, or edema. ENT: Nares patent. No nasal discharge, no septal abnormalities noted. Tympanic membranes are normal and external auditory canals are clear. Oropharynx with no redness, swelling, or masses, exudates, or evidence of obstruction, uvula midline. Mucous membranes moist. Neck: Trachea midline, no thyromegaly or masses palpated, and no cervical lymphadenopathy. Supple, full range of motion without nuchal rigidity, or vertebral point tenderness. No Meningismus. Chest/axilla: Normal chest wall appearance and motion. Nontender with no deformity. No lesions are appreciated. Cardiovascular: Regular rate and rhythm with a normal S1 and S2. No gallops, murmurs, or rubs. Normal PMI, no JVD. No pulse deficits. Respiratory: Lungs have equal breath sounds bilaterally, clear to auscultation and percussion. No rales, rhonchi or wheezes noted. No increased work of breathing, no retractions or nasal flaring. Back: No spinal tenderness. No costovertebral tenderness. Full range of motion. Male : Normal genitalia with no discharge or lesions. Skin: Warm, dry with normal turgor. Normal color with no rashes, no lesions, and no evidence of cellulitis. MS/ Extremity: Pulses equal, no cyanosis. Neurovascular intact. Full, normal range of motion. Neuro: Awake and alert, GCS 15, oriented to person, place, time, and situation. Cranial nerves II-XII grossly intact. Motor strength 5/5 in all extremities. Sensory grossly intact. Cerebellar exam normal. Normal gait. Psych: Awake, alert, with orientation to person, place and time. Behavior, mood, and affect are within normal limits. 20:52 Constitutional: The patient appears in obvious distress, moderately distressed, restless, uncomfortable, unkempt. 20:52 Abdomen/GI: Inspection: abdomen appears normal, Bowel sounds: normal, Palpation: moderate abdominal tenderness, in the epigastric area, right upper quadrant and left upper quadrant, Liver: no appreciated palpable abnormalities, Hernia: not appreciated. 21:30 ECG was reviewed by the Attending Physician. manjeet Vital Signs: 20:39 BP 149 / 99; Pulse 88; Resp 22; Temp 98.8; Pulse Ox 100% ; Weight 83.91 kg; Height 6 jh5 ft. 3 in. (190.50 cm); Pain 10/10; 22:10 BP 146 / 81; Pulse 74; Resp 20; Pulse Ox 98% on R/A; tp1 20:39 Body Mass Index 23.12 (83.91 kg, 190.50 cm) [facility] MDM: 20:26 Patient medically screened. [facility] 20:55 Differential diagnosis: abnormal EKG, acute pericarditis, chest wall pain, manjeet Cholelithiasis costochondritis, esophagitis, hiatal hernia, pancreatitis, bowel obstruction, non-specific abd pain, pancreatitis, Peptic Ulcer Disease, urinary tract infection. HEART Score: History: Slightly Suspicious (0), ECG: Normal (0), Age: < or = 45 years (0), Risk Factors: No Risk Factors Known (0). The patient's deep vein thrombosis risk score was calculated as follows: Total Score: 0. This patient was found to be at low risk for a deep vein thrombosis by using the Well's assessment criteria. The patient's pulmonary embolism risk score was calculated as follows: Total Score: 0-2 points. This patient was found to be at low risk for a pulmonary embolism by using the Well's assessment criteria. BUDDY Risk Score: TOTAL SCORE = 0. Data reviewed: vital signs, nurses notes, lab test result(s), EKG, radiologic studies, CT scan, plain films. Data interpreted: pvc monitor: Pulse oximetry: on room air is 100 %. Test interpretation: by ED physician or midlevel provider: ECG, plain radiologic studies. Counseling: I had a detailed discussion with the patient and/or guardian regarding: the historical points, exam findings, and any diagnostic results supporting the discharge/admit diagnosis, lab results, radiology results. 09/20 20:26 Order name: CBC with Diff; Complete Time: 21:18 [facility] 09/20 20:26 Order name: CMP; Complete Time: 23:33 [facility] 09/20 20:26 Order name: Lipase; Complete Time: 23:33 [facility] 09/20 20:52 Order name: CT Chest, Abdomen, Pelvis - W/Contrast; Complete Time: 21:52 [facility] 09/20 20:55 Order name: Chest Single View XRAY; Complete Time: 21:52 [facility] 09/20 22:21 Order name: SARS RAPID; Complete Time: 23:33 mw2 09/20 21:28 Order name: US Abdomen Limited; Complete Time: 22:31 [facility] 09/20 20:26 Order name: IV Saline Lock; Complete Time: 21:00 [facility] 09/20 20: Order name: Labs collected and sent; Complete Time: 21:00 [facility] 09/20 20:55 Order name: EKG; Complete Time: : [facility] 09/20 20:55 Order name: EKG - Nurse/Tech; Complete Time: :30 [facility] EC:30 Rate is 77 beats/min. Rhythm is regular. QRS [place] is Normal. HI interval is shortened manjeet at 110 msec. QRS interval is normal. QT interval is normal. No Q waves. T waves are Normal. No ST changes noted. Clinical impression: NSR w/ Non-specific ST/T Changes, LVH, and No evidence of ischemia. Interpreted by me. Reviewed by me. Administered Medications: 20:54 Drug: NS 0.9% 1000 ml Route: IV; Rate: 1 bolus; Site: right antecubital; tp1 20:55 Drug: Pepcid (famotidine) 20 mg Route: IVP; Site: right antecubital; tp1 21:31 Follow up: Response: Pain is unchanged, physician notified tp1 20:56 Drug: Zofran (Ondansetron) 4 mg Route: IVP; Site: right antecubital; tp1 21:31 Follow up: Response: Nausea is decreased tp1 21:20 Drug: morphine 4 mg Route: IVP; Infused Over: 4 mins; Site: right antecubital; tp1 21:31 Follow up: Response: Pain is unchanged, physician notified tp1 21:22 Drug: ProTONIX (pantoprazole) 40 mg Route: IVP; Site: right antecubital; tp1 22:50 Follow up: Response: Pain is decreased tp1 21:24 Drug: Zosyn (piperacillin-tazobactam) 3.375 grams Route: IVPB; Infused Over: 60 mins; tp1 Site: right antecubital; 22:50 Follow up: Response: No adverse reaction; IV Status: Completed infusion; IV Intake: tp1 100ml 21:58 Drug: Dilaudid (HYDROmorphone) 1 mg Route: IVP; Site: right antecubital; tp1 22:49 Follow up: Response: Pain is decreased tp1 22:04 Drug: Dilaudid (HYDROmorphone) 1 mg Route: IVP; Site: right antecubital; tp1 22:49 Follow up: Response: Pain is decreased tp1 09/21 00:58 Not Given (Patient Refused): GI Cocktail without - (Maalox Suspension 30 ml, vc1 Lidocaine Liquid 2 % 15 ml) PO once Disposition Summary: 09/20/22 22:31 Transfer Ordered Transfer Location: [facility] manjeet Reason: Higher level of care manjeet Condition: Fair manjeet Problem: an ongoing problem manjeet Symptoms: have worsened manjeet Accepting Physician: to [facility](09/21/22 00:50) vc1 Diagnosis - Epigastric abdominal tenderness manjeet - Acute peptic ulcer, site unspecified, without hemorrhage or perforation manjeet Forms: - Medication Reconciliation Form manjeet - SBAR form manjeet Signatures: Dispatcher [employer] EDRico Scott MD MD cha Rees, Jessica RN RN jh5 Nandini Alfred RN RN tp1 Erika Johns RN RN vc1 Corrections: (The following items were deleted from the chart) 00:50 09/20 22:31 to [facility] manjeet vc1
--- NOTE | 2022-09-20 22:31 | ER ---
Nurse's Notes [facility] Name: Alexander Saldivar Age: 22 yrs Sex: Male : 2000 Arrival Date: 09/20/2022 Time: 20:19 Bed 24 Private MD: Diagnosis: Epigastric abdominal tenderness;Acute peptic ulcer, site unspecified, without hemorrhage or perforation Presentation: 09/20 20:39 Chief complaint: Patient states: upper right and center abdominal pain that has been on jh5 and off for months; i take pepcid and hydroxizine for it but it is not helping today; vomiting. Coronavirus screen: Vaccine status: Patient reports being unvaccinated. Client denies travel out of the [place] in the last 14 days. Ebola Screen: Patient negative for fever greater than or equal to 101.5 degrees Fahrenheit, and additional compatible Ebola Virus Disease symptoms Patient denies exposure to infectious person. Patient denies travel to an Ebola-affected area in the 21 days before illness onset. Initial Sepsis Screen: Does the patient meet any 2 criteria? No. Patient's initial sepsis screen is negative. Does the patient have a suspected source of infection? No. Patient's initial sepsis screen is negative. Risk Assessment: Do you want to hurt yourself or someone else? Patient reports no desire to harm self or others. 20:39 Method Of Arrival: Ambulatory [facility] 20:39 Acuity: PEEWEE 3 jh5 Triage Assessment: 20:41 General: Appears distressed, uncomfortable, slender, Behavior is cooperative, anxious, jh5 restless. Pain: Complains of pain in abdomen. GI: Reports upper abdominal pain, cramping, nausea, vomiting. Historical: - Allergies: 20:41 Bentyl; 5 - PSHx: 20:41 wisdom teeth removal; 5 - Immunization history:: Adult Immunizations up to date. - Social history:: Smoking status: Patient reports the use of cigarette tobacco products, smokes one-half pack cigarettes per day. Screenin:02 Abuse screen: Denies threats or abuse. Denies injuries from another. Nutritional tp1 screening: Had unintentional weight loss of 10 pounds or more. Tuberculosis screening: No symptoms or risk factors identified. Fall Risk None identified. Assessment: 20:45 General: Appears in no apparent distress. uncomfortable, Behavior is cooperative, tp1 anxious, crying. Pain: Complains of pain in epigastric area Pain does not radiate. Pain currently is 10 out of 10 on a pain scale. Quality of pain is described as stabbing, Is intermittent. Neuro: Level of Consciousness is awake, alert, obeys commands, Oriented to person, place, time, situation. Cardiovascular: Patient's skin is warm and dry. Respiratory: Airway is patent Respiratory effort is even, unlabored. GI: Abdomen is flat, non-distended, Abd is soft and non tender Reports nausea, vomiting. : No signs and/or symptoms were reported regarding the genitourinary system. EENT: No signs and/or symptoms were reported regarding the EENT system. Derm: Skin is pink, warm \T\ dry. Musculoskeletal: Circulation, motion, and sensation intact. 21:32 Reassessment: Patient appears in no apparent distress at this time. No changes from tp1 previously documented assessment. Patient and/or family updated on plan of care and expected duration. Pain level reassessed. Continues to CO 10/10 pain, provider notified. 22:00 Reassessment: CO increased ABD pain provider notified. tp1 22:04 Reassessment: received VO from DR. Baer for dilaudid 1 mg X1. tp1 Vital Signs: 20:39 BP 149 / 99; Pulse 88; Resp 22; Temp 98.8; Pulse Ox 100% ; Weight 83.91 kg; Height 6 5 ft. 3 in. (190.50 cm); Pain 10/10; 22:10 BP 146 / 81; Pulse 74; Resp 20; Pulse Ox 98% on R/A; tp1 20:39 Body Mass Index 23.12 (83.91 kg, 190.50 cm) [facility] ED Course: 20:19 Patient arrived in ED. jj6 20:26 Rico Baer MD is Attending Physician. [facility] 20:41 Triage completed. [facility] 20:41 Arm band placed on right wrist. [facility] 20:42 Nandini Alfred, LEONARD is Primary Nurse. tp1 21:02 Inserted saline lock: 20 gauge in right antecubital area, using aseptic technique. tp1 Blood collected. 21:03 Patient has correct armband on for positive identification. Bed in low position. Call tp1 light in reach. Pulse ox on. NIBP on. 21:10 CT Chest, Abdomen, Pelvis - W/Contrast In Process Unspecified. EDMS 21:17 Chest Single View XRAY In Process Unspecified. EDMS 22:11 US Abdomen Limited In Process Unspecified. EDMS 22:22 initiated a transfer with Dionte from [facility]. [facility] 22:[address] Baer with the Doctor from [facility]. [facility] 09/21 00:05 administrative approval given by Dionte Dasilva/ patient has been accepted to [address] to bed 1811/ Dr. Rosen accepted the patient in transfer/report to be called to [phone]. 00:49 No provider procedures requiring assistance completed. Patient transferred, IV remains vc1 in place. Administered Medications: 09/20 20:54 Drug: NS 0.9% 1000 ml Route: IV; Rate: 1 bolus; Site: right antecubital; tp1 20:55 Drug: Pepcid (famotidine) 20 mg Route: IVP; Site: right antecubital; tp1 21:31 Follow up: Response: Pain is unchanged, physician notified tp1 20:56 Drug: Zofran (Ondansetron) 4 mg Route: IVP; Site: right antecubital; tp1 21:31 Follow up: Response: Nausea is decreased tp1 21:20 Drug: morphine 4 mg Route: IVP; Infused Over: 4 mins; Site: right antecubital; tp1 21:31 Follow up: Response: Pain is unchanged, physician notified tp1 21:22 Drug: ProTONIX (pantoprazole) 40 mg Route: IVP; Site: right antecubital; tp1 22:50 Follow up: Response: Pain is decreased tp1 21:24 Drug: Zosyn (piperacillin-tazobactam) 3.375 grams Route: IVPB; Infused Over: 60 mins; tp1 Site: right antecubital; 22:50 Follow up: Response: No adverse reaction; IV Status: Completed infusion; IV Intake: tp1 100ml 21:58 Drug: Dilaudid (HYDROmorphone) 1 mg Route: IVP; Site: right antecubital; tp1 22:49 Follow up: Response: Pain is decreased tp1 22:04 Drug: Dilaudid (HYDROmorphone) 1 mg Route: IVP; Site: right antecubital; tp1 22:49 Follow up: Response: Pain is decreased tp1 09/21 00:58 Not Given (Patient Refused): GI Cocktail without - (Maalox Suspension 30 ml, vc1 Lidocaine Liquid 2 % 15 ml) PO once Medication: 00:50 VIS not applicable for this client. vc1 Intake: 09/20 22:50 IV: 100ml; Total: 100ml. tp1 Outcome: 22:31 ER care complete, transfer ordered by . manjeet 09/21 00:49 Transferred by ground EMS to [facility], Transfer form completed. vc1 X-rays sent w/ patient. Condition: stable 00:50 Patient left the ED. vc1 Signatures: Dispatcher [employer] Rico Velez MD MD cha Westbrook, Rene 2 Chloe Rivera Jessica, RN RN jh5 Nandini Alfred RN RN tp1 Erika Johns RN RN vc1
[2022-09-20 23:13] LABS: SARS-CoV-2 Antigen Rapid Res Negative (Negative)
[2022-09-20 23:17] LABS: Bilirubin Total 0.3 mg/dL (0.2-1.0); Potassium 4.2 mmol/L (3.5-5.1)
[2022-09-20 23:18] LABS: Albumin 3.8 g/dL (3.4-5.0)
[2022-09-21 00:55] VITALS: TEMP 98.8
[2022-09-21 00:56] VITALS: BP 146/81; O2SAT 98
--- NOTE | 2022-09-21 13:48 | EKG ---
Test Date: 2022-09-20 Test Time: 21:26:42 Director Fundraising: TP MEASUREMENT RESULTS: Intervals: Rate: 77 TN: 110 QRSD: 88 QT: 358 QTc: 405 [place]: P: 59 TN: 110 QRS: 84 T: 50 INTERPRETIVE STATEMENTS: Sinus rhythm with short TN Minimal voltage criteria for LVH, may be normal variant Borderline ECG No previous ECG available for comparison Electronically Signed On 09-21-22 13:46:49 [employer]LLING [employer]PERVIS[employer] by Sanford Lindquist
== END 2022-09-21 00:50 | disposition short-term general hospital (02) ==
LOC: ER 20:17
DX: K27.3 Acute peptic ulcer, site unspecified, without hemorrhage or perforation (principal); Z20.822 Contact with and (suspected) exposure to COVID-19; F17.210 Nicotine dependence, cigarettes, uncomplicated
CPT/HCPCS: 36415; 71045; 71260; 74177; 76705; 80053; 83690; 85025; 87811; 93005; C9113; J1170; J2405; J2543; J7030; Q9967

== ENCOUNTER 2023-04-15 19:11 | Emergency (ER) | payer BC, SELFPAY ==
--- OUTSIDE RECORDS SUMMARY | 2023-04-15 19:47 | XMS REPORT | Continuity of Care Document ---
:2000 Author Organization [facility] t Address [address] [facility] [address] [place] [address] Care Team Providers Name Role Phone NONSTAFF Primary Care Physician Unavailable TAMY CALLEJAS Attending Clinician Unavailable CRISTOFER VEGA Attending Clinician Unavailable BAUTISTA Attending Clinician Unavailable LAINEY Attending Clinician Unavailable Willem Abad Attending Clinician Unavailable BUTCH_DAIN Attending Clinician Unavailable Jessika LANDRY, Kiki Browning Attending Clinician Marlon Chester MD Attending Clinician [phone] MARLON CHESTER Attending Clinician Unavailable Kristal Javier MD Attending Clinician Isaak LANDRY, Rachael Bey Attending Clinician eSan Moody MD, V. Attending Clinician SEAN MOODY V. Attending Clinician Unavailable RAJI BAL Attending Clinician Unavailable EMMY MOLINA Attending Clinician Unavailable VIOLETTA HAINES V Attending Clinician Unavailable AMITA SINGH Attending Clinician Unavailable IHDE_G Admitting Clinician Unavailable LAINEY Admitting Clinician Unavailable YOLA Admitting Clinician Unavailable KIKI ORTIZ Admitting Clinician Unavailable KRISTAL JAVIER Admitting Clinician Unavailable Payers Payer Name Policy Type Policy Effective Date Expiration Date Sour ce Number [place] [id number] 2022 ADVANTAGE (HMO) 00:00:00 CLAUDETTE [id number] [facility] 3 [facility] [id number] [address] [facility] [place]:[facility] Problems Condition Condition Condition Status Onset Resolution Last Treating Co mments Source Name Details Category Date Date Treatment Clinician Date Abdominal Abdominal Disease Active 2021-[address] [facility] Pneumomedi Pneumomedi Disease Recurre 2021-[address] [facility] astinum astinum nce 11-06 [facility] Allergies, Adverse Reactions, Alerts Allergy Allergy Status Severity Reaction(s) Onset Inactive Treating Comm ents Source Name Type Date Date Clinician DICYCLOM Allergy Active High Sob 2021-[address] [facility] INE 11-06 [facility] Center ONDANSET Allergy Active High Sob 2021-[address] [facility] [address] [facility] - [facility] Center Dicyclom Propensi Active Shortness Of 2021-[address] ine ty to Breath, Rash 11-06 [facility] adverse 00:00: Medical reaction 00 Center s Ondanset Propensi Active Shortness Of 2021-[address] jose ty to Breath, Rash 11-06 [facility] adverse 00:00: Medical reaction 00 Center s NO KNOWN Allergy Active [facility] S Social History Social Habit Start Date Stop Date Quantity Comments Source History SDOH [facility]-Med Medical [facility] History SDOH Housing 2022-09-21 2022-09-[address] [facility] Unable to Pay 00:00:00 00:00:[address] History SDSD Housing 2022-09-21 2022-09-[address] [facility] Places Lived 00:00:00 00:00:00 Medical Cent er History SDSD Housing 2022-09-21 2022-09-[address] [facility] Homeless Last Year 00:00:00 00:00:00 Medica l Center History [facility] 2022-09-21 2022-09-[address] [facility] Transport Med 00:00:00 00:00:[address] Exposure to 2022-08-27 2022-09-[address] [facility] SARS-CoV-2 (event) 00:00:00 10:55:00 Medica l Center Sex Assigned At [birth year] C[facility] [place] kes 00:00:00 00:00:00 Medical Center Smoking Status Start Date Stop Date Source Light Tobacco Smoker Igor Whalen Medications Ordered Filled Start Stop Current Ordering Indication Dosage Frequency Signature Comments Components Source Medication Medication Date Date Medication? Clinician (SIG) Name Name sertraline 2021-10- No 50mg QD Take [address] [facility] [address] (ZOLOFT) 50 -21 09- tablet (50 L ukes MG tablet 00:00: 23:59 mg total) Me dical 00 :00 by mouth Center daily. sertraline 2021-10- No 50mg QD Take [address] (ZOLOFT) 50 -21 09-22 tablet (50 L ukes MG tablet 00:00: 23:59 mg total) Me dical 00 :00 by mouth Center daily. famotidine 2021-10 Yes 20mg Take [address] (PEPCID) 20 0-25 by mouth Luke [facility] MG tablet 00:00: every 12 Medi chace 00 (twelve) Center hours as needed. hydrOXYzine 2021-10 Yes 25mg Take [address] [facility] (ATARAX) 25 0-25 by mouth Luke s MG tablet 00:00: every 6 Medic al 00 (six) Center hours as needed. famotidine 2021-10 Yes 20mg Take [address] (PEPCID) 20 0-25 by mouth Luke s MG tablet 00:00: every 12 Medi chace 00 (twelve) Center hours as needed. hydrOXYzine 2021-10 Yes 25mg Take [address] (ATARAX) 25 0-25 by mouth Luke s MG tablet 00:00: every 6 Medic al 00 (six) Center hours as needed. famotidine 2021-10 Yes 20mg Take [address] (PEPCID) 20 0-25 by mouth Luke s MG tablet 00:00: every 12 Medi chace 00 (twelve) Center hours as needed. hydrOXYzine 2021-10 Yes 25mg Take [address] (ATARAX) 25 0-25 by mouth Luke s MG tablet 00:00: every 6 Medic al 00 (six) Center hours as needed. predniSONE 2021-10- No 60mg QD Take [address] [facility] (DELTASONE) 0-25 11-08 by mouth Yuri es 10 MG 00:00: 00:00 daily. Medical tablet 00 :00 [place] predniSONE 2021-10- No 60mg QD Take [address] [facility] (DELTASONE) 0-25 11-08 by mouth Yuri es 10 MG 00:00: 00:00 daily. Medical tablet 00 :00 [place] predniSONE 2021-10- No 60mg QD Take [address] (DELTASONE) 0-25 11-08 by mouth Yuri es 10 MG 00:00: 00:00 daily. Medical tablet 00 :00 [place] dicyclomine 2021-10 Yes 10mg [id number] Take [address] (BENTYL) 10 0-11 [id number] by mouth 3 [facility] MG capsule 00:00: 3D (three) Medi chace 00 times Center daily. ondansetron 2021-10 Yes 8mg Take [address] (ZOFRAN-ODT 0-11 by mouth Luke s ) 8 MG 00:00: every 8 Medical disintegrat 00 (eight) Cente r ing tablet hours as needed. dicyclomine 2021-10 Yes 10mg Q.[id number] Take [address] (BENTYL) 10 0-11 [id number] by mouth 3 [facility] MG capsule 00:00: 3D (three) Medi chace 00 times Center daily. ondansetron 2021-10 Yes 8mg Take [address] (ZOFRAN-ODT 0-11 by mouth Luke s ) 8 MG 00:00: every 8 Medical disintegrat 00 (eight) Cente r ing tablet hours as needed. dicyclomine 2021-10 Yes 10mg Q.[id number] Take [address] (BENTYL) 10 0-11 [id number] by mouth 3 [facility] MG capsule 00:00: 3D (three) Medi chace 00 times Center daily. ondansetron 2021-10 Yes 8mg Take [address] (ZOFRAN-ODT 0-11 by mouth Luke s ) 8 MG 00:00: every 8 Medical disintegrat 00 (eight) Cente r ing tablet hours as needed. famotidine famotidine No famotidine [place] 20 mg 20 mg 20 mg da tablet TAKE tablet TAKE tablet Medical 1 TABLET BY 1 TABLET BY TAKE 1 Group MOUTH TWICE MOUTH TWICE TABLET BY DAILY DAILY MOUTH TWICE DAILY hydroxyzine hydroxyzine No hydroxyzin [place] HCl 50 mg HCl 50 mg e HCl 50 d a tablet TAKE tablet TAKE mg tablet Medical 1 TABLET BY 1 TABLET BY TAKE 1 Group MOUTH EVERY MOUTH EVERY TABLET BY 8 HOURS 8 HOURS MOUTH NEEDED FOR NEEDED FOR EVERY 8 ANXIETY ANXIETY HOURS NEEDED FOR ANXIETY famotidine famotidine No famotidine [place] 20 mg 20 mg 20 mg da tablet TAKE tablet TAKE tablet Medical 1 TABLET BY 1 TABLET BY TAKE 1 Group MOUTH TWICE MOUTH TWICE TABLET BY DAILY DAILY MOUTH TWICE DAILY hydroxyzine hydroxyzine No hydroxyzin [place] HCl 50 mg HCl 50 mg e HCl 50 d a tablet TAKE tablet TAKE mg tablet Medical 1 TABLET BY 1 TABLET BY TAKE 1 Group MOUTH EVERY MOUTH EVERY TABLET BY 8 HOURS 8 HOURS MOUTH NEEDED FOR NEEDED FOR EVERY 8 ANXIETY ANXIETY HOURS NEEDED FOR ANXIETY famotidine famotidine No famotidine [place] 20 mg 20 mg 20 mg da tablet TAKE tablet TAKE tablet Medical 1 TABLET BY 1 TABLET BY TAKE 1 Group MOUTH TWICE MOUTH TWICE TABLET BY DAILY DAILY MOUTH TWICE DAILY hydroxyzine hydroxyzine No hydroxyzin [place] HCl 50 mg HCl 50 mg e HCl 50 d a tablet TAKE tablet TAKE mg tablet Medical 1 TABLET BY 1 TABLET BY TAKE 1 Group MOUTH EVERY MOUTH EVERY TABLET BY 8 HOURS 8 HOURS MOUTH NEEDED FOR NEEDED FOR EVERY 8 ANXIETY ANXIETY HOURS NEEDED FOR ANXIETY famotidine famotidine No famotidine [place] 20 mg 20 mg 20 mg da tablet TAKE tablet TAKE tablet Medical 1 TABLET BY 1 TABLET BY TAKE 1 Group MOUTH TWICE MOUTH TWICE TABLET BY DAILY DAILY MOUTH TWICE DAILY hydroxyzine hydroxyzine No hydroxyzin [place] HCl 50 mg HCl 50 mg e HCl 50 d a tablet TAKE tablet TAKE mg tablet Medical 1 TABLET BY 1 TABLET BY TAKE 1 Group MOUTH EVERY MOUTH EVERY TABLET BY 8 HOURS 8 HOURS MOUTH NEEDED FOR NEEDED FOR EVERY 8 ANXIETY ANXIETY HOURS NEEDED FOR ANXIETY Vital Signs Vital Name Observation Time Observation Value Comments Source BP Diastolic 2022-12-09 00:00:00 70 mm[Hg] [facility] Height 2022-12-09 00:00:00 75 [in_i] [facility] BMI (Body Mass 2022-12-09 00:00:00 22.9 kg/m2 [facility] Medical Index) Group BP Systolic 2022-12-09 00:00:00 126 mm[Hg] [facility] Body Weight 2022-12-09 00:00:00 183 [lb_av] [facility] BP Diastolic 2022-11-25 00:00:00 64 mm[Hg] [facility] Height 2022-11-25 00:00:00 75 [in_i] [facility] BMI (Body Mass 2022-11-25 00:00:00 23.6 kg/m2 [facility] Medical Index) Group BP Systolic 2022-11-25 00:00:00 120 mm[Hg] [facility] Body Weight 2022-11-25 00:00:00 189 [lb_av] [facility] HEIGHT 2022-09-06 10:00:00 190.5 cm WEIGHT 2022-09-06 10:00:00 84.732 kg HEIGHT 2022-09-06 10:00:00 190.5 cm WEIGHT 2022-09-06 10:00:00 84.732 kg HEIGHT 2022-09-06 10:00:00 190.5 cm WEIGHT 2022-09-06 10:00:00 84.732 kg Systolic blood 2022-09-21 07:00:00 105 mm[Hg] [facility] Diastolic blood 2022-09-21 07:00:00 64 mm[Hg] [facility] Heart rate 2022-09-21 07:00:00 72 /min [facility] Body temperature 2022-09-21 07:00:00 36.28 [place] [facility] Respiratory rate 2022-09-21 07:00:00 18 /min [facility] Oxygen saturation in 2022-09-21 07:00:00 99 /min [facility] Arterial blood by Medical Ce nter Pulse oximetry Systolic blood 2022-09-07 07:00:00 115 mm[Hg] [facility] Diastolic blood 2022-09-07 07:00:00 62 mm[Hg] [facility] Heart rate 2022-09-07 07:00:00 62 /min [facility] Body temperature 2022-09-07 07:00:00 36.39 [place] [facility] Respiratory rate 2022-09-07 07:00:00 18 /min [facility] Oxygen saturation in 2022-09-07 07:00:00 99 /min [facility] Arterial blood by Medical Ce nter Pulse oximetry Body height 2022-09-06 10:00:[address] [facility] Body weight 2022-09-06 10:00:[address] [facility] BMI 2022-09-06 10:00:00 23.35 kg/m2 [facility] Procedures Procedure Date / Time Performing Clinician Source Performed Laparoscopic 2022-11-26 00:00:00 [place] BASIC METABOLIC PANEL 2022-09-21 06:12:00 Kiki Ortiz [facility] HEPATIC FUNCTION PANEL 2022-09-21 06:12:00 Kiki Ortiz [facility] MAGNESIUM 2022-09-21 06:12:00 Kiki Ortiz [facility] CBC W/PLT COUNT & AUTO 2022-09-21 06:12:00 Kiki Ortiz [facility] LIPASE 2022-09-21 06:12:00 Kiki Ortiz [facility] CBC W/PLT COUNT & AUTO 2022-09-21 06:12:[address] [facility] EKG-SCANNED 2022-09-21 00:00:00 Kita [facility] es Scanning [facility] CBC W/PLT COUNT & AUTO 2022-09-07 04:55:[address] [facility] CBC W/PLT COUNT & AUTO 2022-09-07 04:55:[address] [facility] BASIC METABOLIC PANEL 2022-09-07 04:54:00 Kristal Javier [facility] [place] ESOPHAGUS 2022-09-06 13:55:00 Adina Valera [facility] Cholecystectomy, [place] Medic [facility] Laparoscopic (Surg) Group Plan of Care Planned Activity Planned Date Details Comments Source Future Scheduled 2023-07-[address] [facility] Test 00:00:00 (Season Ended) [code Medical Center = Influenza Vaccine (Season Ended)] Future Scheduled 2022-10-[address] [facility] Test 00:00:00 (12+) [code = Medical Center DEPRESSION SCREENING (12+)] Future Scheduled 2022-10-[address] [facility] Test 00:00:00 (12+) [code = Medical Center [facility] DEPRESSION SCREENING (12+)] Future Scheduled 2022-07-[address] [facility] Test 00:00:00 (#1) [code = Medical Center INFLUENZA VACCINE (#1)] Future Scheduled 2022-07-[address] [facility] Test 00:00:00 (#1) [code = Medical Center [facility] INFLUENZA VACCINE (#1)] Future Scheduled 2021-10-[address] [facility] Test 00:00:00 (12+) [code = Medical Center DEPRESSION SCREENING (12+)] Future Scheduled 2017 DTAP/TDAP/TD VACCINES [facility] 00:00:00 (1 - Tdap) [code = Medical C enter DTAP/TDAP/TD VACCINES (1 - Tdap)] Future Scheduled 2017 DTAP/TDAP/TD VACCINES [facility] 00:00:00 (1 - Tdap) [code = Medical C enter DTAP/TDAP/TD VACCINES (1 - Tdap)] Future Scheduled 2017 DTAP/TDAP/TD VACCINES [facility] 00:00:00 (1 - Tdap) [code = Medical C enter DTAP/TDAP/TD VACCINES (1 - Tdap)] Future Scheduled 2016 HEPATITIS C [facility]CRE[facility]ING [facility] 00:00:00 [code = HEPATITIS C Medical Center SCREENING] Future Scheduled 2016 HEPATITIS C [facility] 00:00:00 [code = HEPATITIS C Medical Center SCREENING] Future Scheduled 2016 HEPATITIS C [facility] 00:00:00 [code = HEPATITIS C Medical Center SCREENING] Future Scheduled [address] [facility] Test 00:00:00 Counseling and Medical Cente r Screening (12+) [code = Tobacco Cessation Counseling and Screening (12+)] Future Scheduled [address] [facility] Test 00:00:00 Counseling and Medical Cente r Screening (12+) [code = Tobacco Cessation Counseling and Screening (12+)] Future Scheduled [address] [facility] Test 00:00:00 Counseling and Medical Cente r Screening (12+) [code = Tobacco Cessation Counseling and Screening (12+)] Future Scheduled 1998 COVID-19 VACCINE (#1) [facility] 00:00:00 [code = COVID-[address] VACCINE (#1)] Future Scheduled 1998 COVID-19 VACCINE (#1) [facility] 00:00:00 [code = COVID-[address] VACCINE (#1)] Future Scheduled 1998 COVID-19 VACCINE (#1) [facility] 00:00:00 [code = COVID-[address] VACCINE (#1)] Encounters Start End Encounter Admission Attending Care Care Encounter Source Date/Time Date/Time Type Type Clinicians Facility Department ID 2022-10-04 Inpatient [facility] [id number] [facility] 15:21:[address] [place] [address] 2022-09-17 Inpatient [facility] [id number] [place] 14:08:[id number] [place] [address] 2022-09-09 Inpatient TOM CALLEJAS [facility] [id number] [place] 08:00:00 TAMY -[id number] [facility] 2022-08-13 Inpatient CRISTOFER BARTH [facility] [id number] [place] 10:30:00 -[id number] [facility] 2023-03-24 2023-03-24 Outpatient IHDE_G MMG MMG [id number] [place] 00:00:00 00:00:00 0525 Medical [facility] 2023-02-18 2023-02-18 Outpatient [facility] [place] 00:00:00 00:00:00 N [id number] [facility] 2023-02-17 2023-02-17 Outpatient IHDE_G MMG MMG [id number] [place] 00:00:00 00:00:00 0421 [facility] 2023-01-13 2023-01-13 Outpatient IHDE_G MMG MMG [id number] [place] 00:00:00 00:00:00 0316 [facility] 2022-12-09 2022-12-09 Outpatient IHDE_G MMG MMG [id number] [place] 00:00:00 00:00:00 0209 [facility] 2022-12-09 2022-12-09 Outpatient IHDE_G MMG MMG [id number] [place] 00:00:00 00:00:00 0210 [facility] 2022-12-09 2022-12-09 Willem MMG [place] - [id number] [place] 00:00:00 00:00:00 Kade Franco MD: Medical Medica [address], [facility] [place] [address] , Ph. [phone] 2022-12-03 2022-12-03 Outpatient IHDE_G MMG MMG [id number] [place] 00:00:00 00:00:00 0205 Medical Group 2022-12-03 2022-12-03 Outpatient IHDE_G MMG MMG [id number] [place] 00:00:00 00:00:00 0206 [facility] 2022-11-26 2022-11-26 Outpatient Willem Galdamez [facility] [id number] [place] 08:01:00 08:01:00 -[id number] [facility] 2022-11-26 2022-11-26 Outpatient IHDE_G MMG MMG [id number] [place] 00:00:00 00:00:00 0130 [facility] 2022-11-26 2022-11-26 Outpatient IHDE_G MMG MMG [id number] [place] 00:00:00 00:00:00 0201 [facility] 2022-11-25 2022-11-25 Outpatient IHDE_G MMG MMG [id number] [place] 00:00:00 00:00:00 0126 [facility] 2022-11-25 2022-11-25 Outpatient IHDE_G MMG MMG [id number] [place] 00:00:00 00:00:00 0127 [facility] 2022-11-25 2022-11-25 Willem [facility] [place] - [id number] M [facility] 00:00:00 00:00:00 Kade Franco MD: Medical Medica [address], [place] [address] , Ph. [phone] 2022-11-22 2022-11-22 Outpatient IHDE_G MMG MMG [id number] [place] 00:00:00 00:00:00 0123 [facility] 2022-10-20 2022-10-20 Outpatient [facility] [id number] [place] 00:00:00 00:00:00 _DAIN [id number] [facility] 2022-10-01 2022-10-01 Outpatient TOM CALLEJAS, [facility] [id number] [place] 08:48:00 08:48:00 TAMY [id number] [facility] 2022-09-212022-09-21 [id number] 02:06:00 12:14:00 Encounter Marlon [facility] 2022-09-21 2022-09-21 Outpatient UR NEMO [facility] [id number] [facility] 02:06:00 12:14:00 MARLON 2022-09-21 2022-09-21 [facility] Kiki Ortiz [facility] [id number] 02:06:00 12:14:00 Encounter Marlon [facility] 2022-09-21 2022-09-21 Travel [facility] [id number] [facility]00 [facility] [place] 2022-09-21 2022-09-21 Travel [facility] [id number] [facility] 00:[facility] 00[facility]00 [facility] 2022-09-06 2022-09-07 Hospital ER Kiki Ortiz [facility] [id number] 09:47:00 12:27:00 Encounter Kristal Javier, [facility] Medical Sean Moody V. [place] 2022-09-06 2022-09-07 [facility] [id number] [facility] 09:47:00 12:27:[facility] 2022-09-06 2022-09-07 [facility] [id number] 09:47:00 12:27:00 Encounter Kristal Javier, Rachael Sotero Medical Sean Moody V. [place] 2022-09-06 2022-09-06 Travel [facility] [id number] [facility] 00:[facility]00 00:00:00 [facility] 2022-09-06 2022-09-06 Travel [facility] [id number] [facility] 00:[facility]00 00:00:00 [facility] 2020-08-22 2020-08-22 Emergency ER GIANNONE, [facility] [id number] [place] 13:24:00 19:14:00 RAJI -[id number] [facility] 2020-08-21 2020-08-21 Emergency ER SAIFI, [facility] [id number] [place] 20:03:00 21:17:00 [id number] [facility] 2020-08-19 2020-08-19 Emergency ER SAIFI, [facility] [id number] [place] 21:03:00 21:51:00 [facility] -[id number] [facility] 2020-08-06 2020-08-06 Outpatient SOLIS_SMITH MEHOP MEHOP [id number] [place] 05:03:00 05:03:00 _DAIN [id number] 2020-08-06 2020-08-06 Outpatient SOLIS_SMITH MEHOP MEHOP [id number] [place] 05:03:00 05:03:00 _DAIN [id number] [facility] 2020-03-19 2020-03-19 Outpatient SOLIS_SMITH PRHOP MEHOP [id number] [place] 04:46:00 04:46:00 _LILALLY [id number] [facility] 2019-01-10 2019-01-10 [facility] [id number] 11:35:00 15:45:00 Emergency VIOLETTA [address] [place] [address] 2018-04-18 2018-04-18 Outpatient TOM Callejas, [facility] [id number] [place] 10:41:00 10:41:00 Tamy -[id number] [facility] 2016-12-01 2016-12-01 Emergency ER MALLY, [facility] [id number] [place] 18:11:00 20:46:00 RAJI -[id number] [facility] 2015-06-22 2015-06-22 Emergency ER AMITA SINGH [facility] [id number] [place] 14:49:00 15:30:00 -[id number] [facility] Results Test Description Test Time Test Comments Results Result Comments Source pathology S# 2022-11-30 17:15:00 Test Item Value Reference Range Interpretation Comme nts pathology S# (test code = pathology S#) [facility]30 17:15:00 Test Item Value Reference Range Interpretation Comments pathology S# (test code see emr pathology = pathology S#) [facility]. [facility] - Serum or Plasma 2022-11-25 16:11:00 Test Item Value Reference Range Interpretation Comments glucose (test code = glucose) 106 mg/dL 74-106 blood urea nitrogen (test code = 9 mg/dL 6-20 blood urea nitrogen) osmolality calculated,serum (test 277 mOsm/kg 280-300 L code = osmolality calculated,serum) creatinine (test code = 0.74 mg/dL 0.70-1.20 creatinine) glomerular filtration rate (test > 60.00 code = glomerular filtration rate) BUN/creatinine ratio (test code = 12.2 12.0-20.0 BUN/creatinine ratio) sodium level (test code = sodium 139 mmol/L 135-145 level) potassium level (test code = 4.5 mmol/L 3.5-5.2 potassium level) chloride level (test code = 103 mmol/L 98-108 chloride level) CO2 (test code = CO2) 27 mmol/L 21-32 anion gap (test code = anion gap) 13.5 mEq/L 12.0-20.0 calcium level (test code = 10.3 mg/dL 8.6-10.0 H calcium level) total protein (test code = total 8.2 g/dL 6.6-8.7 protein) albumin (test code = albumin) 5.0 g/dL 3.5-5.2 globulin (test code = globulin) 3.2 g/dL 1.5-4.5 A/G ratio (test code = A/G ratio) 1.6 >1.0 bilirubin,total (test code = 0.4 mg/dL 0.0-1.2 bilirubin,total) AST/SGOT (test code = AST/SGOT) 13 U/L 15-40 L ALT/SGPT (test code = ALT/SGPT) 12 U/L 0-41 alkaline phosphatase, total (test 104 U/L 40-130 code = alkaline phosphatase, total) [facility] - Serum or Plasma 2022-11-25 16:11:00 Test Item Value Reference Range Interpretation Comments glucose (test code = glucose) 106 mg/dL 74-106 blood urea nitrogen (test code = 9 mg/dL 6-20 blood urea nitrogen) osmolality calculated,serum (test 277 mOsm/kg 280-300 L code = osmolality calculated,serum) creatinine (test code = 0.74 mg/dL 0.70-1.20 creatinine) glomerular filtration rate (test > 60.00 code = glomerular filtration rate) BUN/creatinine ratio (test code = 12.2 12.0-20.0 BUN/creatinine ratio) sodium level (test code = sodium 139 mmol/L 135-145 level) potassium level (test code = 4.5 mmol/L 3.5-5.2 potassium level) chloride level (test code = 103 mmol/L 98-108 chloride level) CO2 (test code = CO2) 27 mmol/L 21-32 anion gap (test code = anion gap) 13.5 mEq/L 12.0-20.0 calcium level (test code = 10.3 mg/dL 8.6-10.0 H calcium level) total protein (test code = total 8.2 g/dL 6.6-8.7 protein) albumin (test code = albumin) 5.0 g/dL 3.5-5.2 globulin (test code = globulin) 3.2 g/dL 1.5-4.5 A/G ratio (test code = A/G ratio) 1.6 >1.0 bilirubin,total (test code = 0.4 mg/dL 0.0-1.2 bilirubin,total) AST/SGOT (test code = AST/SGOT) 13 U/L 15-40 L ALT/SGPT (test code = ALT/SGPT) 12 U/L 0-41 alkaline phosphatase, total (test 104 U/L 40-130 code = alkaline phosphatase, total) [facility] - [id number] 15:54:00 Test Item Value Reference Range Interpretation Comments white blood count (test code = 6.3 K/uL 4.0-12.3 white blood count) red blood count (test code = red 5.36 M/uL 3.80-5.80 blood count) hemoglobin (test code = 15.1 g/dL 11.7-17.2 hemoglobin) hematocrit (test code = 47.3 % 35.0-51.0 hematocrit) mean corpuscular volume (test code 88.2 fL 83.0-100.0 = mean corpuscular volume) mean corpuscular hemoglobin (test 28.2 pg 26.8-33.4 code = mean corpuscular hemoglobin) mean corpuscular HGB conc (test 31.9 g/dL 30.0-35.0 code = mean corpuscular HGB conc) red cell distribution width (test 13.1 % 12.0-14.0 code = red cell distribution width) platelet count (test code = 288 K/uL 175-450 platelet count) mean platelet volume (test code = 9.8 fL 9.4-12.6 mean platelet volume) neutrophils % (test code = 45.1 % 44.7-82.4 neutrophils %) Ig% (test code = Ig%) 0.3 % 0.0-0.4 lymphocyte% (test code = 42.6 % 10.0-50.0 lymphocyte%) mono % (test code = mono %) 9.2 % 3.9-13.4 eos % (test code = eos %) 2.5 % 0.0-6.4 basophil % (test code = basophil 0.3 % 0.2-1.2 %) absolute neutrophil count (test 2.83 K/uL 1.78-5.38 code = absolute neutrophil count) Ig# (test code = Ig#) 0.02 K/uL 0.00-0.03 lymph # (test code = lymph #) 2.68 K/uL 1.32-3.57 mono # (test code = mono #) 0.58 K/uL 0.30-0.82 eos # (test code = eos #) 0.16 K/uL 0.04-0.54 basophil # (test code = basophil 0.02 K/uL 0.01-0.08 #) NRBC% (test code = NRBC%) 0 /100 WBC 0-0.2 NRBC# (test code = NRBC#) 0 K/uL [facility] W Auto Differential panel - [id number] 15:54:00 Test Item Value Reference Range Interpretation Comments white blood count (test code = 6.3 K/uL 4.0-12.3 white blood count) red blood count (test code = red 5.36 M/uL 3.80-5.80 blood count) hemoglobin (test code = 15.1 g/dL 11.7-17.2 hemoglobin) hematocrit (test code = 47.3 % 35.0-51.0 hematocrit) mean corpuscular volume (test code 88.2 fL 83.0-100.0 = mean corpuscular volume) mean corpuscular hemoglobin (test 28.2 pg 26.8-33.4 code = mean corpuscular hemoglobin) mean corpuscular HGB conc (test 31.9 g/dL 30.0-35.0 code = mean corpuscular HGB conc) red cell distribution width (test 13.1 % 12.0-14.0 code = red cell distribution width) platelet count (test code = 288 K/uL 175-450 platelet count) mean platelet volume (test code = 9.8 fL 9.4-12.6 mean platelet volume) neutrophils % (test code = 45.1 % 44.7-82.4 neutrophils %) Ig% (test code = Ig%) 0.3 % 0.0-0.4 lymphocyte% (test code = 42.6 % 10.0-50.0 lymphocyte%) mono % (test code = mono %) 9.2 % 3.9-13.4 eos % (test code = eos %) 2.5 % 0.0-6.4 basophil % (test code = basophil 0.3 % 0.2-1.2 %) absolute neutrophil count (test 2.83 K/uL 1.78-5.38 code = absolute neutrophil count) Ig# (test code = Ig#) 0.02 K/uL 0.00-0.03 lymph # (test code = lymph #) 2.68 K/uL 1.32-3.57 mono # (test code = mono #) 0.58 K/uL 0.30-0.82 eos # (test code = eos #) 0.16 K/uL 0.04-0.54 basophil # (test code = basophil 0.02 K/uL 0.01-0.08 #) NRBC% (test code = NRBC%) 0 /100 WBC 0-0.2 NRBC# (test code = NRBC#) 0 K/uL [facility] [id number] 07:12:52 Test Item Value Reference Range Interpretation Comments MAGNESIUM (BEAKER) (test code = 1.9 mg/dL 1.6-2.6 627) Stakes Player ID Kerri MCGARRY LHEPATIC FUNCTION [id number] 07:12:52 Test Item Value Reference Range Interpretation Comments TOTAL PROTEIN (BEAKER) (test code = 6.4 gm/dL 6.0-8.3 770) ALBUMIN (BEAKER) (test code = 1145) 3.9 g/dL 3.5-5.0 BILIRUBIN TOTAL (BEAKER) (test code 0.3 mg/dL 0.2-1.2 = 377) BILIRUBIN DIRECT (BEAKER) (test 0.1 mg/dL 0.1-0.5 code = 706) ALKALINE PHOSPHATASE (BEAKER) (test 75 U/L 40-150 code = 346) AST (SGOT) (BEAKER) (test code = 13 U/L 5-34 353) ALT (SGPT) (BEAKER) (test code = 13 U/L 6-55 347) Stakes Player ID Kerri MCGARRY [id number] 07:12:52 Test Item Value Reference Range Interpretation Comments LIPASE (BEAKER) (test code = 749) 21 U/L 8-78 Stakes Player ID Kerri MCGARRY LBASIC METABOLIC [id number] 07:12:51 Test Item Value Reference Range Interpretation Comments SODIUM (BEAKER) 140 meq/L 136-145 (test code = 381) POTASSIUM 4.4 meq/L 3.5-5.1 (BEAKER) (test code = 379) CHLORIDE (BEAKER) 108 meq/L 98-107 H (test code = 382) CO2 (BEAKER) 27 meq/L 22-29 (test code = 355) BLOOD UREA 6 mg/dL 7-21 L NITROGEN (BEAKER) (test code = 354) CREATININE 0.76 mg/dL 0.57-1.25 (BEAKER) (test code = 358) GLUCOSE RANDOM 86 mg/dL 70-105 (BEAKER) (test code = 652) CALCIUM (BEAKER) 9.1 mg/dL 8.4-10.2 (test code = 697) EGFR (BEAKER) 129 Interpretatio n of eGFR (test code = mL/min/1.73 values Stage De scription 1092) sq m Result G1 Norm al or high >=90 G2 Mildly decreased 60-89 G3a Mildl y to moderately 45-5 9 G3b Moderately to s everely 30-44 G4 Severl y decreased 15-29 G5 Kidne y failure <15Reported eGF R is based on the CKD-EPI 2020 equation that d oes not use a race coefficientEsti mated GFR is not as accur ate as Creatinine Rubi yfn in predicting glom erular filtration rate . Estimated GFR is not appl icable for dialysis patien ts Stakes Player ID - PIAYA LCBC W/PLT COUNT & AUTO [id number] 06:56:48 Test Item Value Reference Range Interpretation Comments WHITE BLOOD CELL COUNT (BEAKER) 9.5 K/ L 3.5-10.5 (test code = 775) RED BLOOD CELL COUNT (BEAKER) 4.52 M/ L 4.63-6.08 L (test code = 761) HEMOGLOBIN (BEAKER) (test code = 13.1 GM/DL 13.7-17.5 L 410) HEMATOCRIT (BEAKER) (test code = 40.4 % 40.1-51.0 411) MEAN CORPUSCULAR VOLUME (BEAKER) 89 fL 79-92 (test code = 753) MEAN CORPUSCULAR HEMOGLOBIN 29.0 pg 25.7-32.2 (BEAKER) (test code = 751) MEAN CORPUSCULAR HEMOGLOBIN CONC 32.4 GM/DL 32.3-36.5 (BEAKER) (test code = 752) RED CELL DISTRIBUTION WIDTH 13.1 % 11.6-14.4 (BEAKER) (test code = 412) PLATELET COUNT (BEAKER) (test 260 K/CU MM 150-450 code = 756) MEAN PLATELET VOLUME (BEAKER) 10.1 fL 9.4-12.4 (test code = 754) NUCLEATED RED BLOOD CELLS 0 /100 WBC 0-0 (BEAKER) (test code = 413) NEUTROPHILS RELATIVE PERCENT 55 % (BEAKER) (test code = 429) LYMPHOCYTES RELATIVE PERCENT 27 % (BEAKER) (test code = 430) MONOCYTES RELATIVE PERCENT 9 % (BEAKER) (test code = 431) EOSINOPHILS RELATIVE PERCENT 8 % (BEAKER) (test code = 432) BASOPHILS RELATIVE PERCENT 0 % (BEAKER) (test code = 437) NEUTROPHILS ABSOLUTE COUNT 5.25 K/ L 1.78-5.38 (BEAKER) (test code = 670) LYMPHOCYTES ABSOLUTE COUNT 2.54 K/ L 1.32-3.57 (BEAKER) (test code = 414) MONOCYTES ABSOLUTE COUNT (BEAKER) 0.88 K/ L 0.30-0.82 H (test code = 415) EOSINOPHILS ABSOLUTE COUNT 0.78 K/ L 0.04-0.54 H (BEAKER) (test code = 416) BASOPHILS ABSOLUTE COUNT (BEAKER) 0.03 K/ L 0.01-0.08 (test code = 417) IMMATURE GRANULOCYTES-RELATIVE 0.40 % 0.00-1.00 PERCENT (BEAKER) (test code = 2801) BASIC METABOLIC [id number] 08:05:14 Test Item Value Reference Range Interpretation Comments SODIUM (BEAKER) 136 meq/L 136-145 (test code = 381) POTASSIUM 3.9 meq/L 3.5-5.1 (BEAKER) (test code = 379) CHLORIDE (BEAKER) 105 meq/L 98-107 (test code = 382) CO2 (BEAKER) 22 meq/L 22-29 (test code = 355) BLOOD UREA 8 mg/dL 7-21 NITROGEN (BEAKER) (test code = 354) CREATININE 0.80 mg/dL 0.57-1.25 (BEAKER) (test code = 358) GLUCOSE RANDOM 75 mg/dL 70-105 (BEAKER) (test code = 652) CALCIUM (BEAKER) 9.5 mg/dL 8.4-10.2 (test code = 697) EGFR (BEAKER) 127 Interpretatio n of eGFR (test code = mL/min/1.73 values Stage De scription 1092) sq m Result G1 Lashanda l or high >=90 G2 Mildly decreased 60-89 G3a Mildl y to moderately 45-5 9 G3b Moderately to s everely 30-44 G4 Severl y decreased 15-29 G5 Kidney failure <15Reported eGF R is based on the CKD-EPI 2020 equation that d oes not use a race coefficientEsti mated GFR is not as accur ate as Creatinine Rubi coulter in predicting glom erular filtration rate . Estimated GFR is not appl icable for dialysis patien ts Stakes Player ID - PIBABS Coleyrator ID - MALGORZATA LCBC W/PLT COUNT & AUTO [id number] 05:49:48 Test Item Value Reference Range Interpretation [...] PERCENT (BEAKER) (test code = 2801) [place], [id number] 16:13:00Reason for exam:->presented with pneumomediatstinum, eval for esophageal perforation [facility] 2000 Sex: MFINAL REPORT Gastrografin esophagogram Clinical History: presented with pneumomediastinum, eval for esophageal perforation Discussion: Gastrografin is given to the patient to drink, without difficulties. The esophageal motility, and caliber is normal. No contrast extravasation. Fluoro time: 0.6 minutes Number of images obtained: 6 Signed: Magdalena Julien Verified Date/Time: 09/06/2022 16:13:21 Reading Location: [address] Consult Reading [facility] [id number] 15:05:00 [place] [address] PatientName: JONO ZULETA MR #: [id number] : 2000 Age/Sex: 18/M Req # : [id number] Adm Physician: Ordered by: VIOLETTA HAINES MD Report #: [id number] Location: [facility] Room/Bed: Procedure: [id number] HOPD/CT SOFT TISSUE NEXK WITH-HOPD Exam Date: 01/10/19 Exam Time: 1300 REPORT STATUS: Signed CT SOFT TISSUE NECK WITH- HOPD HISTORY: Throat swelling COMPARISON: None. TECHNIQUE: Axial CT images were obtained through the neck with intravenous, iodine based contrast. Coronal and sagittal reconstructions obtained from the axial data. One or more of the following dose reductiontechniques were used: Automated exposure control, adjustment of [...] seen. The thyroid gland is unremarkable. The submandibula r and parotid glands are unremarkable. The major cervical vessels are unremarkable. The school psychologist, parapharyngeal, posterior cervical, and perivertebral spaces are unremarkable. The visualized intracranial compartment is grossly unremarkable. The paranasal sinuses are clear. No destructive osseous lesions are seen. The upper lungs are unremarkable. IMPRESSION: 1. Mildly prominent adenoid, palatine,and lingual tonsils. No discrete drainable fluid collection. 2. The visualized upper aerodigestive tract is otherwise unremarkable. 3. Mildly prominent bilateral upper jugular chain lymph nodes may be reactive. Signed by: Dr. Jakob Horowitz M.D. on 01/10/2019 3:10 PM Dictated By: JAKOB HOROWITZ MD 09 Transcribed By: IGGY on 01/10/191509 COPY TO: VIOLETTA HAINES MD
[2023-04-15 19:57] LABS: Absolute Lymphocytes (CBC) 1.4 K/uL (0.7-4.9); Hematocrit 44.1 % (39.6-49.0); Lymphocytes % 12.4 % (15.3-44.8); MCV 88.2 fL (80-100); MPV 8.4 fL (7.6-11.3)
[2023-04-15 20:09] LABS: Potassium 3.8 mEq/L (3.5-5.1)
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
[2023-04-15] MEDS ORDERED: FENTANYL CITR 100 MCG/2 ML ONE (20:43)
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
--- NOTE | 2023-04-15 21:22 | RAD REPORT ---
EXAM DESCRIPTION: RAD - Forearm Right - 04/15/2023 8:56 pm CLINICAL HISTORY: Right arm pain FINDINGS: No fracture is seen.
[2023-04-15 21:46] VITALS: TEMP 98.2
[2023-04-15 21:48] VITALS: BP 123/80; O2SAT 99
== END 2023-04-15 21:30 | disposition home or self-care (01) ==
LOC: ER 19:11
DX: S06.0X0A Concussion without loss of consciousness, initial encounter (principal); R07.9 Chest pain, unspecified; M79.631 Pain in right forearm; V49.49XA Driver injured in collision with other motor vehicles in traffic accident, initial encounter; F17.210 Nicotine dependence, cigarettes, uncomplicated; Z88.8 Allergy status to other drugs, medicaments and biological substances
CPT/HCPCS: 85025; 80048; 36415; 86900; 86850; 86901; 70450; 72125; 71260; 74177; 73090; 96374; 99285; Q9967; J3010

== ENCOUNTER 2023-04-16 23:28 | Emergency (ER) | payer BC ==
--- OUTSIDE RECORDS SUMMARY | 2023-04-16 23:32 | XMS REPORT | Continuity of Care Document ---
:[address] [facility] t Address [address] [facility] [address] [place] [address] Care Team Providers Name Role Phone NONSTAFF Primary Care Physician Unavailable TAMY CALLEJAS Attending Clinician Unavailable CRISTOFER VEGA Attending Clinician Unavailable BAUTISTA Attending Clinician Unavailable LAINEY Attending Clinician Unavailable Willem Abad Attending Clinician Unavailable BUTCH_DAIN Attending Clinician Unavailable Jessika LANDRY, Kiki Browning Attending Clinician Marlon Chester MD Attending Clinician [phone] MARLON CHESTER Attending Clinician Unavailable Kristal Javier MD Attending Clinician Isaak LANDRY, Rachael Bey Attending Clinician Sean Moody MD, V. Attending Clinician SEAN MOODY [...] Expiration Date Sour ce Number [place] [id number] 2022 ADVANTAGE (HMO) 00:00:00 CLAUDETTE [id number] [facility] 3 [facility] [id number] [address] [facility] [place] 00:00:00 Patient Medical Center Problems Condition Condition [...] ents Source Name Type Date Date Clinician Dicyclom Propensi Active Shortness Of 2021-[address] [facility] to Breath, Rash 11-06 [facility] adverse 00:00: Medical reaction 00 Center s Ondanset Propensi Active Shortness Of 2021-[address] [facility] jose ty to Breath, Rash 11-06 [facility] adverse 00:00: Medical reaction 00 Center s DICYCLOM Allergy Active High Sob 2021-[address] [facility] 00:00: Medical 00 Center ONDANSET Allergy Active High Sob 2021-[address] [facility] 00:00: Medical 00 Center NO KNOWN Allergy Active [facility] S Social History Social Habit Start Date Stop Date Quantity Comments Source History SDOH [facility] Non-Med Medical Center History SDOH Housing 2022-09-21 2022-09-[address] [facility] Unable to Pay 00:00:00 00:00:[address] History SDFL Housing 2022-09-21 2022-09-[address] [facility] Places Lived 00:00:00 00:00:00 Medical Cent er History SDFL Housing 2022-09-21 2022-09-[address] [facility] Homeless Last Year 00:00:00 00:00:00 Medica l Center History [facility] 2022-09-21 2022-09-[address] [facility] Transport Med 00:00:00 00:00:[address] Exposure to 2022-08-27 2022-09-[address] [facility] SARS-CoV-2 (event) 00:00:00 10:55:00 Medica l Center Sex Assigned At [address] [facility] 00:00:00 00:00:00 Medical Center Smoking Status [...] 00 :00 by mouth Center daily. sertraline 2021-10 No 50mg QD Take [address] (ZOLOFT) 50 - 11-22 tablet (50 L ukes MG tablet 00:00: 23:59 mg total) Me dical 00 :00 by mouth Center daily. sertraline 2021-10- No 50mg QD Take [address] (ZOLOFT) 50 1-22 11-22 tablet (50 L ukes MG tablet 00:00: [...] 00:00: 00:00 daily. Medical tablet 00 :00 [place] predniSONE 2021-2021- No 60mg QD Take [address] (DELTASONE) 0-25 11-08 by mouth Yuri es 10 MG 00:00: 00:00 daily. Medical tablet 00 :00 [place] predniSONE 2021-2- No 60mg QD Take [address] (DELTASONE) 0-25 11-08 by mouth Yuri es 10 MG 00:00: 00:00 daily. Medical tablet 00 :00 [place] predniSONE 2021-2- No 60mg QD Take [address] (DELTASONE) 0-25 11-08 by mouth Yuri es 10 MG 00:00: 00:00 daily. Medical tablet 00 :00 Center dicyclomine 2021-10 Yes 10mg Q.[id number] Take [address] (BENTYL) 10 0-11 [id number] by mouth 3 [facility] MG capsule 00:00: 3D (three) Medi chace 00 times Center daily. ondansetron 2021-10 Yes 8mg Take [address] (ZOFRAN-ODT 0-11 by mouth Luke s ) 8 MG 00:00: every 8 Medical disintegrat 00 (eight) Cente r ing tablet hours as needed. dicyclomine 2021-10 Yes 10mg Q.[id number] Take [address] (BENTYL) 10 0-11 [id number] by mouth 3 [facility] MG capsule 00:00: 3D (three) Medi chace 00 times Center daily. ondansetron 2021-10 Yes 8mg Take [address] (ZOFRAN-ODT 0-11 by mouth Luke s ) 8 MG 00:00: every 8 Medical disintegrat 00 (eight) Cente r ing tablet hours as needed. dicyclomine 2021-10 Yes 10mg Q.[id number] Take [address] (BENTYL) 10 0-11 [id number] by mouth 3 [facility] MG capsule 00:00: 3D (three) Medi chace 00 times Center daily. ondansetron 2021-10 Yes 8mg Take [address] (ZOFRAN-ODT 0-11 by mouth Luke s ) 8 MG 00:00: every 8 Medical disintegrat 00 (eight) Cente r ing tablet hours as needed. dicyclomine 2021-10 Yes 10mg Q.[id number] Take [address] (BENTYL) 10 0-11 [id number] by mouth 3 [facility] MG capsule 00:00: [...] Source BP Diastolic 2022-12-09 00:00:00 70 mm[Hg] [facility] Height 2022-12-09 00:00:00 75 [in_i] [facility] BMI (Body Mass 2022-12-09 00:00:00 22.9 kg/m2 [facility] Medical Index) Group BP Systolic 2022-12-09 00:00:00 126 mm[Hg] [facility] Body Weight 2022-12-09 00:00:00 183 [lb_av] [facility] BP Diastolic 2022-11-25 00:00:00 64 mm[Hg] [facility] Height 2022-11-25 00:00:00 75 [in_i] [facility] BMI (Body Mass 2022-11-25 00:00:00 23.6 kg/m2 [facility] Medical Index) Group BP Systolic 2022-11-25 00:00:00 120 mm[Hg] [facility] Body Weight 2022-11-25 00:00:00 189 [lb_av] [facility] HEIGHT 2022-09-06 10:00:00 190.5 cm WEIGHT 2022-09-06 10:00:00 84.732 kg HEIGHT 2022-09-06 10:00:00 190.5 cm WEIGHT 2022-09-06 10:00:00 84.732 kg HEIGHT 2022-09-06 10:00:00 190.5 cm WEIGHT 2022-09-06 10:00:00 84.732 kg Systolic blood 2022-09-21 07:00:00 105 mm[Hg] [facility] Diastolic blood 2022-09-21 07:00:00 64 mm[Hg] [facility] Heart rate 2022-09-21 07:00:00 72 /min [facility] Body temperature 2022-09-21 07:00:00 36.28 Tuyet [facility] Respiratory rate 2022-09-21 07:00:00 18 /min [facility] Oxygen saturation in 2022-09-21 07:00:00 99 /min [facility] Arterial blood by Medical Ce nter Pulse oximetry Systolic blood 2022-09-07 07:00:00 115 mm[Hg] [facility] Diastolic blood 2022-09-07 07:00:00 62 mm[Hg] [facility] Heart rate 2022-09-07 07:00:00 62 /min [facility] Body temperature 2022-09-07 07:00:00 36.39 Tuyet [facility] Respiratory rate 2022-09-07 07:00:00 18 /min [facility] Oxygen saturation in 2022-09-07 07:00:00 99 /min [facility] Arterial blood by Medical Ce nter Pulse oximetry Body height 2022-09-06 10:00:00 190.5 cm [facility] Body weight 2022-09-06 10:00:00 84.732 kg [facility] BMI 2022-09-06 10:00:00 23.35 kg/m2 [facility] Procedures Procedure Date / Time Performing Clinician Source Performed Laparoscopic 2022-11-26 00:00:00 Igor mccallum [facility] BASIC METABOLIC PANEL 2022-09-21 06:12:00 Kiki Ortiz [facility] HEPATIC FUNCTION PANEL 2022-09-21 06:12:00 Kiki Ortiz CH [facility] MAGNESIUM 2022-09-21 06:12:00 Kiki Ortiz [facility] CBC W/PLT COUNT & AUTO 2022-09-21 06:12:00 Kiki Ortiz [facility] LIPASE 2022-09-21 06:12:00 Kiki Ortiz [facility] CBC W/PLT COUNT & AUTO 2022-09-21 06:12:00 Kiki Otriz [facility] EKG-SCANNED 2022-09-21 00:00:00 ProviderKita [facility] CBC W/PLT COUNT & AUTO 2022-09-07 04:55:00 Kristal Javier [facility] CBC W/PLT COUNT & AUTO 2022-09-07 04:55:00 Kristal Javier [facility] BASIC METABOLIC PANEL 2022-09-07 04:54:00 Kristal Javier CH [facility] [place] ESOPHAGUS 2022-09-06 13:55:[address] [facility] Cholecystectomy, [place] [facility] Laparoscopic (Surg) Group Plan of Care Planned Activity Planned Date Details Comments Source Future Scheduled 2023-07-[address] [facility] Test 00:00:00 (Season Ended) [code Medical Center = Influenza Vaccine (Season Ended)] Future Scheduled 2023-07-[address] [facility] Test 00:00:00 (Season Ended) [code Medical Center = Influenza Vaccine (Season Ended)] Future Scheduled 2022-10-[address] [facility] Test 00:00:00 (12+) [code = Medical Center DEPRESSION SCREENING (12+)] Future Scheduled 2022-10-[address] [facility] Test 00:00:00 (12+) [code = [facility] Center DEPRESSION SCREENING (12+)] Future Scheduled 2022-10-[address] [facility] Test 00:00:00 (12+) [code = [facility] Center DEPRESSION SCREENING (12+)] Future Scheduled 2022-07-[address] [facility] Test 00:00:00 (#1) [code = [facility] Center INFLUENZA VACCINE (#1)] Future Scheduled 2022-07-[address] [facility] Test 00:00:00 (#1) [code = [facility] Center INFLUENZA VACCINE (#1)] Future Scheduled 2021-10-[address] [facility] Test 00:00:00 (12+) [code = [facility] Center DEPRESSION SCREENING (12+)] Future Scheduled 2017 [...] Type Clinicians Facility Department ID 2022-10-04 Inpatient ANNABELLE ALANIS [id number] [facility] 15:21:56 [id number] [place] 2022-09-17 Inpatient ANNABELLE ALANIS [id number] [facility] 14:08:35 [id number] [place] 2022-09-09 Inpatient TOM CALLEJAS [facility] [id number] [place] 08:00:00 TAMY -[id number] Formerly [facility] 2022-08-13 Inpatient CRISTOFER BARTH [facility] [id number] [place] 10:30:00 [id number] [facility]ly [facility] 2023-03-24 2023-03-24 Outpatient IHDE_[place] [id number] [place] 00:00:00 00:00:00 0525 Medical Group 2023-02-18 2023-02-18 [address] [facility] [id number] [place] 00:00:00 00:00:00 N [id number] [facility] h Program 2023-02-17 2023-02-17 Outpatient IHDE_G MMG MMG [id number] [place] 00:00:00 00:00:00 0421 [facility] 2023-01-13 2023-01-13 Outpatient IHDE_G MMG MMG [id number] [place] 00:00:00 00:00:00 0316 [facility] 2022-12-09 2022-12-09 Outpatient IHDE_G MMG MMG [id number] [place] 00:00:00 00:00:00 0209 [facility] 2022-12-09 2022-12-09 Outpatient IHDE_G MMG MMG [id number] [place] 00:00:00 00:00:00 0210 [facility] 2022-12-09 2022-12-09 Willem [facility] [place] - [id number] [place] 00:00:00 00:00:00 Kade Franco MD: Medical Medica [address], [place] [address] , Ph. [phone] 2022-12-03 2022-12-03 Outpatient IHDE_G MMG MMG [id number] [place] 00:00:00 00:00:00 0205 [facility] 2022-12-03 2022-12-03 Outpatient IHDE_G MMG MMG [id number] [place] 00:00:00 00:00:00 0206 [facility] 2022-11-26 2022-11-26 Outpatient EL Ihde, Willem [facility] [id number] [place] 08:01:00 08:01:00 -[id number] Formerly [facility] 2022-11-26 2022-11-26 Outpatient IHDE_G MMG MMG [id number] [place] 00:00:00 00:00:00 0130 [facility] 2022-11-26 2022-11-26 Outpatient IHDE_G MMG MMG [id number] [place] 00:00:00 00:00:00 0201 [facility] 2022-11-25 2022-11-25 Outpatient IHDE_G MMG MMG [id number] [place] 00:00:00 00:00:00 0126 [facility] 2022-11-25 2022-11-25 Outpatient IHDE_G MMG MMG [id number] [place] 00:00:00 00:00:00 0127 [facility] 2022-11-25 2022-11-25 [facility] [place] [facility] [id number] [place] 00:00:00 00:00:00 Kade Franco MD: Medical Medica [address], [place] [address] , Ph. [phone] 2022-11-22 2022-11-22 Outpatient IHDE_G MMG MMG [id number] [place] 00:00:00 00:00:00 0123 [facility] 2022-10-20 2022-10-20 Outpatient MODE_MARIANA LAJIMBO [facility] [id number] [place] 00:00:00 00:00:00 _DAIN 12899 [facility] Program 2022-10-01 2022-10-01 Outpatient TOM CALLEJAS [facility] [id number] [place] 08:48:00 08:48:00 TAMY [id number] Formerly [facility] 2022-09-21 2022-09-21 [id number] 02:06:00 12:14:00 Encounter Marlon Chester [facility] 2022-09-21 2022-09-21 Outpatient UR NEMO [facility] General Med [id number] SLE 02:06:00 12:14:00 MARLON 2022-09-21 2022[facility]09-21 [facility] [id number] 02:06:00 12:14:00 Encounter Nemo Marlon [facility] 2022-09-21 2022-09-21 Travel [facility] [id number] [facility] 00:[facility]00 00:00:00 [facility] 2022-09-21 2022-09-21 Travel [facility] [id number] [facility] 00:[facility]00 00:00:00 [facility] 2022-09-06 2022-09-07 [facility] [id number] 09:47:00 12:27:00 Encounter Kristal Javier Lubna Sotero [facility] Sean Moody V. [place] 2022-09-06 2022-09-07 Inpatient ER NERI [facility] Med [id number] SLE 09:47:00 12:27:00 SEAN 2022-09-06 2022-09-07 [facility] ER OrtizKiki wong [facility] [id number] 09:47:00 12:27:00 Encounter Kristal Javier Lub[facility] Daniel, Jamuna V. [place] 2022-09-06 2022-09-06 Travel [facility] [id number] [facility] 00:00:00 00:00:00 [facility] 2022-09-06 2022-09-06 Travel [facility] [id number] [facility] 00:00:00 00:00:00 [facility] 2020-08-22 2020-08-22 Emergency ER GIANNONE, [facility] [id number] [place] 13:24:00 19:14:00 RAJI -[id number] Formerly [facility] 2020-08-21 2020-08-21 Emergency ER SAIFI, [facility] [id number] [place] 20:03:00 21:17:00 [id number] Formerly [facility] 2020-08-19 2020-08-19 Emergency ER SAIFI, [facility] [id number] [place] 21:03:00 21:51:00 EMMY -[id number] Formerly [facility] 2020-08-06 2020-08-06 Outpatient SOLIS_SMITH MEHOP MEHOP [id number] [place] 05:03:00 05:03:00 _DAIN [id number] [facility] 2020-08-06 2020-08-06 Outpatient SOLIS_SMITH MEHOP MEHOP [id number] [place] 05:03:00 05:03:00 _DAIN 16014 [facility] 2020-03-19 2020-03-19 Outpatient SOLIS_SMITH MEHOP MEHOP [id number] [place] 04:46:00 04:46:00 _DAIN [id number] [facility] 2019-01-10 2019-01-10 Departed 1 ZAKI, [facility] [id number] 11:35:00 15:45:00 Emergency VIOLETTA 88 [facility] 2018-04-18 2018-04-18 Outpatient TMO Callejas, [facility] [id number] [place] 10:41:00 10:41:00 Tamy [id number] Formerly [facility] 2016-12-01 2016-12-01 Emergency ER GIANNONE, [facility] [id number] [place] 18:11:00 20:46:00 RAJI -[id number] Formerly [facility] 2015-06-22 2015-06-22 Emergency ER AMITA SINGH [facility] [id number] [place] 14:49:00 15:30:00 Formerly [facility] Results Test Description Test Time Test Comments Results Result Comments Source pathology S# 2022-11-30 17:15:00 Test Item Value Reference Range Interpretation Comme nts pathology S# (test code = pathology S#) [facility] 17:15:00 Test Item Value Reference Range Interpretation Comments pathology S# (test code see emr pathology = pathology S#) [facility]. [facility] - Serum or Plasma [...] U/L 40-130 code = alkaline phosphatase, total) [facility] - Serum or Plasma [...] U/L 40-130 code = alkaline phosphatase, total) [facility] Differential [facility] - [id number] 15:54:00 Test Item Value Reference Range Interpretation [...] NRBC# (test code = NRBC#) 0 K/uL [facility] W Auto Differential panel - [id number] 15:54:00 Test Item Value Reference Range Interpretation [...] NRBC# (test code = NRBC#) 0 [facility] 07:12:52 Test Item Value Reference Range Interpretation Comments MAGNESIUM (BEAKER) (test code = 1.9 mg/dL 1.6-2.6 627) [employer] Equipment As[employer]er ID Kerri MCGARRY LHEPATIC FUNCTION [id number] 07:12:52 Test Item Value Reference Range Interpretation [...] (test code = 13 U/L 6-55 347) [employer] Equipment Assembler ID Kerri MCGARRY [id number] 07:12:52 Test Item Value Reference Range Interpretation Comments LIPASE (BEAKER) (test code = 749) 21 U/L 8-78 [employer] Equipment As[employer]er ID - MALGORZATA LBASIC METABOLIC [id number] 07:12:51 Test Item Value Reference Range Interpretation [...] not appl icable for dialysis patien ts [employer] Equipment As[employer]er ID - PIAYA LCBC W/PLT COUNT & AUTO [id number] 06:56:48 Test Item Value Reference Range Interpretation [...] (BEAKER) (test code = 2801) BASIC METABOLIC [id number] 08:05:14 Test Item Value Reference Range Interpretation [...] not appl icable for dialysis patien ts Farm Equipment Assembler ID - PIAYA LOperator ID - PIAYA LCBC W/PLT COUNT & AUTO [id number] 05:49:48 Test Item Value Reference Range Interpretation [...] PERCENT (BEAKER) (test code = 2801) [place], [id number] 16:13:00Reason for exam:->presented with pneumomediatstinum, eval for esophageal perforation [facility] : 2000 Sex: MFINAL REPORT Gastrografin esophagogram Clinical History: presented with pneumomediastinum, eval for esophageal perforation Discussion: Gastrografin is given to the patient to drink, without difficulties. The esophageal motility, and caliber is normal. No contrast extravasation. Fluoro time: 0.6 minutes Number of images obtained: 6 Signed: Nancy Julien Verified Date/Time: 09/06/2022 16:13:21 Reading Location: [facility] C013X [facility] Consult Reading Room [facility] SOFT TISSUE NEXK [id number] 15:05:00 [facility] [address] [address] PatientName: JONO ZULETA MR #: [id number] : 2000 Age/Sex: 18/M Req #: [id number] Adm Physician: Ordered by: VIOLETTA HAINES MD Report #: [id number] Location: FS Room/Bed: Procedure: [id number] HOPD/CT SOFT TISSUE NEXK WITH-HOPD Exam Date: [...] of the mA and/or kV according to patientsize, and/or utilization of iterative reconstruction technique. 100 [...] The major cervical vessels are unremarkable. The press tender short goods, parapharyngeal, posterior cervical, and perivertebral spaces are [...]
[2023-04-17 00:33] LABS: Absolute Lymphocytes (CBC) 1.5 K/uL (0.7-4.9); Hematocrit 45.6 % (39.6-49.0); Lymphocytes % 18.4 % (15.3-44.8); MPV 8.4 fL (7.6-11.3); RBC Red Blood Cell Count 5.24 M/uL (4.33-5.43)
[2023-04-17 00:40] LABS: Specific Gravity > 1.030 (1.005-1.030); Urine Bacteria <20 /HPF (<20); Urine Bilirubin NEGATIVE (Negative); Urine Blood Negative (Negative); Urine Clarity Clear (Clear); Urine Color Yellow (Yellow); Urine Glucose NEGATIVE (Negative); Urine Mucus 4+ /HPF (None Seen); Urine Protein 1+ (Negative); Urine RBC <5 /HPF (None Seen); Urine Urobilinogen 1+ (Normal); Urine pH 5.5 (5.0-7.0)
[2023-04-17 00:40] LABS: Protime INR 1.34
[2023-04-17 00:44] LABS: Barbiturates NEGATIVE (NEGATIVE); Benzodiazepines POSITIVE (NEGATIVE); Cocaine POSITIVE (NEGATIVE); METHAMPHETAM POSITIVE (NEGATIVE); Methadone POSITIVE (NEGATIVE); Opiates POSITIVE (NEGATIVE); Phencyclidine NEGATIVE (NEGATIVE); THC Cannibis POSITIVE (NEGATIVE)
[2023-04-17 01:00] LABS: ALT/SGPT 32 U/L (16-61); AST/SGOT 36 U/L (15-37); Albumin 4.9 g/dL (3.4-5.0); Alkaline Phosphatase 100 U/L (45-117); BUN Blood Urea Nitrogen 11 mg/dL (7-18); Bicarbonate 27 mEq/L (21-32); Bilirubin Direct 0.2 mg/dL (0-0.2); Bilirubin Indirect, Calculated 0.6 mg/dL (0.2-0.8); Bilirubin Total 0.8 mg/dL (0.2-1.0); Glomerular Filtration Rate 95 ml/min (=/>90); Glucose Level 116 mg/dL (74-106); Potassium 3.4 mEq/L (3.5-5.1); Protein, Total 9.1 g/dL (6.4-8.2); Sodium Level 136 mEq/L (136-145)
[2023-04-17] MEDS ORDERED: NICOTINE 21 MG/PAT TD ONE (02:34)
--- NOTE | 2023-04-17 02:56 | ER ---
Nurse's Notes [facility] Name: Alexander Saldivar Age: 23 yrs Sex: Male : 2000 Arrival Date: 04/16/2023 Time: 23:28 Bed 18 Private MD: Diagnosis: Polysubstance abuse, acute depression, substance related depression, acute intoxication Presentation: 04/16 23:39 Chief complaint: EMS states: toned out by police due to aggressive and violent behavior aa9 by pt, on scene pt states "I just want to sleep, I am tired, I don't feel like people care about me." pt voluntary accompanied EMS. Coronavirus screen: Vaccine status: Patient reports being unvaccinated. Ebola Screen: No symptoms or risks identified at this time. Initial Sepsis Screen: Does the patient meet any 2 criteria? No. Patient's initial sepsis screen is negative. Does the patient have a suspected source of infection? No. Patient's initial sepsis screen is negative. Risk Assessment: Do you want to hurt yourself or someone else? Patient reports desire/thoughts of hurting themselves or someone else. Provider notified. Onset of symptoms was April 16, 2023. 23:39 Method Of Arrival: EMS: [facility] aa9 23:39 Acuity: PEEWEE 2 aa9 Triage Assessment: 23:43 General: Appears uncomfortable, unkempt, Behavior is cooperative, flat, quiet. Pain: aa9 Complains of pain in generalized. Neuro: Level of Consciousness is awake, alert, obeys commands, Oriented to person, place, time, situation. Cardiovascular: Patient's skin is warm and dry. Respiratory: Airway is patent Respiratory effort is even, unlabored. GI: Abdomen is flat. : No signs and/or symptoms were reported regarding the genitourinary system. Derm: Skin is healthy with good turgor, Wound noted dorsal aspect of right forearm Wound is abrasion. Historical: - Allergies: 23:41 Bentyl; aa9 - PMHx: 23:41 Anxiety; Depressive disorder; aa9 - PSHx: 23:41 wisdom teeth removal; aa9 - Immunization history:: Client reports having NOT received the Covid vaccine. - Social history:: Smoking status: Patient reports the use of cigarette tobacco products, smokes one-half pack cigarettes per day, Patient uses weed. - Family history:: not pertinent. Screenin:45 Abuse screen: Denies threats or abuse. Denies injuries from another. Nutritional aa9 screening: No deficits noted. Tuberculosis screening: No symptoms or risk factors identified. 04/17 03:00 [facility] ED Fall Risk Assessment (Adult) History of falling in the last 3 months, aa9 including since admission No falls in past 3 months (0 pts) Confusion or Disorientation No (0 pts) Intoxicated or Sedated No (0 pts) Impaired Gait No (0 pts) Mobility Assist Device Used No (0 pt) Altered Elimination No (0 pt) Score/Fall Risk Level 0 - 2 = Low Risk Oriented to surroundings, Maintained a safe environment. Assessment: 04/16 23:59 Reassessment: pt states, "I would kill myself if I didn't have family to take care of, aa9 maybe when they are ." pt admits to have access to a hand gun, pt denies plan but states, "It wouldn't be too hard to come up with one.". General: Behavior is crying, flat, quiet. 04/17 02:13 Reassessment: Patient appears in no apparent distress at this time. pt requested to go aa9 outside to smoke, offered pt a nicotine patch, pt said he would take that, notified provider. 02:39 Reassessment: Patient appears in no apparent distress at this time. pt states,"I don't aa9 want to be here all night, it's my birthday, I want to go out." notified provider. 02:41 Reassessment: Glynn LANDRY at bedside. aa9 02:57 Reassessment: Patient appears in no apparent distress at this time. pt provided aa9 personal belonging back, pt understands discharge instructions, father at bedside. pt denies suicidal ideations at this time. pt states, "I want to find help another way." father encouraged pt to seek help. Respiratory: Airway is patent Respiratory effort is even, unlabored. Psych: 00:00 Safety Checks: Personal items have been removed. Door is open. No visitors are present aa9 at this time. 00:12 [place] Suicide Severity Screening: In the past month, have you wished you were aa9 or wished you could go to sleep and not wake up? Patient responds "yes." Based off the client's responses additional C-SSRS screening is required. "In the past month, have you actually had any thoughts of killing yourself?" Patient responds "yes." Based off the client's response additional [place] suicide severity screening questions to be further documented on paper forms. "In your lifetime, have you ever done anything, started to do anything, or prepared to do anything to end your life?" Patient responds "no." pt states, "I would kill myself if I didn't have family to take care of, I have a gun, I don't have a plan but it would not be hard to do it.". Subjective: Patient's mood is sad, hopeless, Delusions are denied, Hallucinations are denied Having thoughts of suicide. Denies suicidal plan. Objective: Patient is using poor eye contact, Speech is slow, Affect is flat. Interventions: Removed personal items and placed in bag. Patient placed in hospital gown. Searched person for dangerous items. Patient uses marijuana. Commitment: Patient will be a voluntary commitment. Vital Signs: 04/16 23:39 BP 149 / 89; Pulse 110; Resp 16; Temp 98.9; Pulse Ox 98% on R/A; Height 6 ft. 3 in. ; aa9 04/17 03:00 BP 142 / 79; Pulse 95; Resp 19; Temp 98.5; Pulse Ox 96% on R/A; aa9 ED Course: 04/16 23:29 Patient arrived in ED. ss 23:34 Johan Maki MD is Attending Physician. sp4 23:39 Arabella Mcgraw, LEONARD is Primary Nurse. aa9 23:41 Triage completed. aa9 23:44 Arm band placed on. aa9 23:45 Patient has correct armband on for positive identification. Bed in low position. Side aa9 rails up X2. 04/17 00:00 Diet: Patient given snack. Patient given water. Tolerated well. aa9 00:59 Inserted saline lock: 20 gauge in right antecubital area, using aseptic technique. as7 Blood collected. 02:54 Esteban Marcus MD is Referral Physician. sp4 02:59 No provider procedures requiring assistance completed. IV discontinued, intact, aa9 bleeding controlled, No redness/swelling at site. Pressure dressing applied. Administered Medications: 02:29 Drug: Nicoderm CQ Transdermal Patch 21 mg/24 hr 1 patches {Note: R Deltoid.} Route: aa9 Transdermal; Site: affected area; Medication: 02:14 VIS not applicable for this client. aa9 Outcome: 02:55 Discharge ordered by . sp4 02:59 Discharged to home ambulatory, with family. aa9 02:59 Condition: stable 02:59 Discharge instructions given to patient, family, Instructed on discharge instructions, follow up and referral plans. benefits of quitting smoking, Demonstrated understanding of instructions, follow-up care. 03:01 Patient left the ED. aa9 Signatures: Kat Quinn RN RN Arabella Sanabria RN RN aa9 Sultana Hernandez as7 Johan Maki MD MD sp4 Corrections: (The following items were deleted from the chart) 00:59 00:59 Inserted saline lock: 20 gauge in right antecubital area, using aseptic as7 technique. as7
--- NOTE | 2023-04-17 02:56 | EDPHYS ---
Physician Documentation [facility] Name: Alexander Saldivar Age: 23 yrs Sex: Male : 2000 Arrival Date: 04/16/2023 Time: 23:28 Bed 18 Private MD: ED Physician Johan Maki HPI: 04/17 02:45 This 23 yrs old Male presents to ER via EMS with complaints of depression, sp4 suicidal . 02:45 23-year-old male with history of anxiety and depressive disorder history of cannabis sp4 use presents with acute onset of depression and suicidal thoughts. Patient denied any specific suicidal plan. Patient states that he feels unwell secondary to multiple social issues and other problems in his life. Patient reported using cannabis but denied using any other drugs. . Historical: - Allergies: 04/16 23:41 Bentyl; aa9 - PMHx: 23:41 Anxiety; Depressive disorder; aa9 - PSHx: 23:41 wisdom teeth removal; aa9 - Immunization history:: Client reports having NOT received the Covid vaccine. - Social history:: Smoking status: Patient reports the use of cigarette tobacco products, smokes one-half pack cigarettes per day, Patient uses weed. - Family history:: not pertinent. ROS: 04/17 02:45 Constitutional: Negative for fever, chills, and weight loss, Eyes: Negative for injury, sp4 pain, redness, and discharge, ENT: Negative for injury, pain, and discharge, Neck: Negative for injury, pain, and swelling, Cardiovascular: Negative for chest pain, palpitations, and edema, Respiratory: Negative for shortness of breath, cough, wheezing, and pleuritic chest pain, Abdomen/GI: Negative for abdominal pain, nausea, vomiting, diarrhea, and constipation, Back: Negative for injury and pain, : Negative for injury, bleeding, discharge, and swelling, MS/Extremity: Negative for injury and deformity, Skin: Negative for injury, rash, and discoloration, Neuro: Negative for headache, weakness, numbness, tingling, and seizure, Psych: Positive for depression and suicidal thoughts negative for suicidal plan, negative for anxiety Allergy/Immunology: Negative for hives, rash, and allergies Endocrine: Negative for neck swelling, polydipsia, polyuria, polyphagia, and weight changes Hematologic/Lymphatic: Negative for swollen nodes, abnormal bleeding, and unusual bruising Exam: 02:45 Constitutional: This is a well developed, well nourished patient who is awake, alert, sp4 and in no acute distress. Head/Face: Normocephalic, atraumatic. Eyes: Pupils equal round and reactive to light, extra-ocular motions intact. Lids and lashes normal. Conjunctiva and sclera are not injected. Cornea within normal limits. Periorbital areas with no swelling, redness, or edema. ENT: Nares patent. No nasal discharge, no septal abnormalities noted. Tympanic membranes are normal and external auditory canals are clear. Oropharynx with no redness, swelling, or masses, exudates, or evidence of obstruction, uvula midline. Mucous membranes moist. Neck: Trachea midline, no thyromegaly or masses palpated, and no cervical lymphadenopathy. Supple, full range of motion without nuchal rigidity, or vertebral point tenderness. Chest/axilla: Normal chest wall appearance and motion. Nontender with no deformity. No lesions are appreciated. Cardiovascular: Regular rate and rhythm with a normal S1 and S2. No gallops, murmurs, or rubs. Normal PMI, no JVD. No pulse deficits. Respiratory: Lungs have equal breath sounds bilaterally, clear to auscultation and percussion. No rales, rhonchi or wheezes noted. No increased work of breathing, no retractions or nasal flaring. Abdomen/GI: Soft, non-tender, with normal bowel sounds. No distension or tympany. No guarding or rebound. No evidence of tenderness throughout. Back: No spinal tenderness. No costovertebral tenderness. Male : Normal genitalia with no discharge or lesions. Skin: Warm, dry with normal turgor. Normal color with no rashes, no lesions, and no evidence of cellulitis. MS/ Extremity: Pulses equal, no cyanosis. Neurovascular intact. Full, normal range of motion. Neuro: Awake and alert, GCS 15, oriented to person, place, time, and situation. Cranial nerves II-XII grossly intact. Motor strength 5/5 in all extremities. Sensory grossly intact. Psych: Awake, alert, with orientation to person, place and time. Positive emotional upset, appears somewhat depressed reports suicidal thoughts, denies suicidal plan 07:26 ECG was reviewed by the Attending Physician. EKG time 2356, there is normal sinus sp4 rhythm at a rate of 84. Vital Signs: 04/16 23:39 BP 149 / 89; Pulse 110; Resp 16; Temp 98.9; Pulse Ox 98% on R/A; Height 6 ft. 3 in. ; aa9 04/17 03:00 BP 142 / 79; Pulse 95; Resp 19; Temp 98.5; Pulse Ox 96% on R/A; aa9 MDM: 04/16 23:35 Patient medically screened. 4 04/17 02:45 Differential Diagnosis altered mental status. Data reviewed: vital signs, nurses notes, sp4 lab test result(s). Consideration of Admission/Observation Escalation of care including admission/observation considered. ED course: Patient is positive for multiple substances of abuse. On repeat assessment patient denies suicidal thoughts and reports that he would like to go home. He declined evaluation by [facility]. Patient will be advised to attend outpatient rehab for substance rehabilitation. He will be advised to attend Narcotics Anonymous group or alcoholic Anonymous group or support group of his choice. 04/16 23:35 Order name: Acetaminophen; Complete Time: 02:40 4 04/16 23:35 Order name: Basic Metabolic Panel; Complete Time: 02:40 [facility] 04/16 23:35 Order name: CBC with Diff; Complete Time: 02:40 04/16 23:35 Order name: ETOH Level; Complete Time: 02:40 04/16 23:35 Order name: Hepatic Function; Complete Time: 02:40 04/16 23:35 Order name: PT-INR; Complete Time: 02:40 04/16 23:35 Order name: Ptt, Activated; Complete Time: 02:40 04/16 23:35 Order name: Salicylate; Complete Time: 02:40 [facility] 04/16 23:35 Order name: Urinalysis w/ reflexes; Complete Time: 02:40 [facility] 04/16 23:35 Order name: Urine Drug Screen; Complete Time: 02:40 4 04/16 23:35 Order name: EKG; Complete Time: 23:36 4 04/16 23:35 Order name: EKG - Nurse/Tech; Complete Time: 00:11 4 04/16 23:35 Order name: IV Saline Lock; Complete Time: 00:42 sp4 04/16 23:35 Order name: Labs collected and sent; Complete Time: 00:42 sp4 04/16 23:35 Order name: Suicide Precautions; Complete Time: 00:11 sp4 04/16 23:35 Order name: Suicide Screening ([place]); Complete Time: 00:36 sp4 EC:26 Rate is 84 beats/min. Rhythm is regular, Normal Sinus Rhythm. QRS [place] is Normal. [place] sp4 interval is normal. QRS interval is normal. QT interval is normal. T waves are Normal. No ST changes noted. Clinical impression: Normal ECG. Interpreted by me. Administered Medications: 02:29 Drug: Nicoderm CQ Transdermal Patch 21 mg/24 hr 1 patches {Note: R Deltoid.} Route: aa9 Transdermal; Site: affected area; Disposition Summary: 04/17/23 02:55 Discharge Ordered Location: Home sp4 Problem: new sp4 Symptoms: have improved sp4 Condition: Stable sp4 Diagnosis - Polysubstance abuse, acute depression, substance related depression, acute sp4 intoxication Followup: sp4 - With: Esteban Marcus MD - When: 7 - 10 days - Reason: Recheck today's complaints Discharge Instructions: - Discharge Summary Sheet sp4 - Cannabis Use Disorder sp4 - Managing Depression, Adult sp4 Signatures: Dispatcher [employer] Arabella Wesley RN RN aa9 Johan Maki MD MD sp4
[2023-04-17 03:19] VITALS: BP 142/79; TEMP 98.5; O2SAT 96
--- NOTE | 2023-04-18 17:52 | EKG ---
Test Date: 2023-04-16 Test Time: 23:56:20 Writer Editor: SAWYER MEASUREMENT RESULTS: Intervals: Rate: 84 VT: 120 QRSD: 88 QT: 360 QTc: 425 [place]: P: 50 VT: 120 QRS: 80 T: 63 INTERPRETIVE STATEMENTS: Normal sinus rhythm with sinus arrhythmia Normal ECG Compared to ECG 09/20/2022 21:26:42 Short VT interval no longer present Left ventricular hypertrophy no longer present Electronically Signed On 04-18-23 17:49:50 CDT by Sanford Lindquist
== END 2023-04-17 03:01 | disposition home or self-care (01) ==
LOC: ER 23:28
DX: F32.A Depression, unspecified (principal); F12.10 Cannabis abuse, uncomplicated; F10.129 Alcohol abuse with intoxication, unspecified; F17.210 Nicotine dependence, cigarettes, uncomplicated
CPT/HCPCS: 36415; 80048; 80076; 80143; 80179; 80307; 81001; 82077; 85025; 85610; 85730; 93005; 99285

== ENCOUNTER 2023-05-17 11:59 | Emergency (ER) | payer BC ==
--- OUTSIDE RECORDS SUMMARY | 2023-05-17 12:06 | XMS REPORT | Continuity of Care Document ---
:2000 Author Organization [facility] t Address [address] [facility] [address] [place] [address] Care Team Providers Name Role Phone No, Pcp [facility] Primary Care Physician Unavailable TAMY CALLEJAS Attending Clinician Unavailable CRISTOFER VEGA Attending Clinician Unavailable BAUTISTA Attending Clinician Unavailable LAINEY Attending Clinician Unavailable Willem Abad Attending Clinician Unavailable YOLA Attending Clinician Unavailable Jessika LANDRY, Kiki Browning Attending Clinician Marlon Chester MD Attending Clinician [phone] MARLON CHESTER Attending Clinician Unavailable Concepcion LANDRY, Kristal Alfaro Attending Clinician Rachael Mulligan MD Attending Clinician [...] Expiration Date Sour ce Number [place] [id number] 2022 ADVANTAGE (HMO) 00:00:00 CLAUDETTE [id number] [facility] 3 [facility] [id number] [address] [facility] 00:00:00 Patient Medical Center Problems Condition Condition [...] Active High Sob 2021-[address] [facility] [address] [facility] 00:00: Medical 00 Center Dicyclom Propensi [...] Pay 00:00:00 00:00:[address] History [facility] Housing 2022-09-21 2022-09-[address] [facility] Places Lived 00:00:00 00:00:00 Medical Cent er History [facility] Housing 2022-09-21 2022-09-[address] [facility] Homeless Last Year 00:00:00 00:00:00 Medica l Center History [facility] 2022-09-21 2022-09-[address] [facility] Transport [...] Date Medication? Clinician (SIG) Name Name sertraline 2021-10 No 50mg QD Take 1 [...] QD Take [address] [facility] [facility] (ZOLOFT) 50 1- 11-22 tablet (50 L ukes MG tablet [...] (six) Center hours as needed. predniSONE 2021-10 2022- No 60mg QD Take [address] [facility] (DELTASONE) 0-25 11-08 by mouth Yuri es 10 MG 00:00: 00:00 daily. Medical tablet 00 :00 [facility] predniSONE 2021-10 2022- No 60mg QD Take [address] (DELTASONE) 0-25 11-08 by mouth Yuri es 10 MG 00:00: 00:00 daily. Medical tablet 00 :00 [facility] predniSONE 2021- 2022- No 60mg QD Take [address] (DELTASONE) 0-25 11-08 by mouth Yuri es 10 MG 00:00: 00:00 daily. Medical tablet 00 :00 [facility] predniSONE 2021-2- No 60mg QD Take [address] (DELTASONE) 0-25 11-08 by mouth Yuri es 10 MG 00:00: 00:00 daily. Medical tablet 00 :00 [facility] predniSONE 2021- 2022- No 60mg QD Take [address] (DELTASONE) 0-25 11-08 by mouth Yuri es 10 MG 00:00: 00:00 daily. Medical tablet 00 :00 [facility] dicyclomine 2021-10 Yes 10mg Q.[id number] Take [address] (BENTYL) 10 0-11 [id number] by mouth 3 [facility] MG capsule 00:00: 3D (three) Medi chace 00 times Center daily. ondansetron 2021-10 Yes 8mg Take [address] (ZOFRAN-ODT 0-11 by mouth Luke s ) 8 MG 00:00: every 8 Medical disintegrat 00 (eight) Cente r ing tablet hours as needed. dicyclomine 2021-10 Yes 10mg Q.[id number] Take [address] (BENTYL) 10 0-11 [id number] by mouth 3 [facility] MG capsule 00:00: 3D (three) Medi chace 00 times Center daily. ondansetron 2021-10 Yes 8mg Take [address] (ZOFRAN-ODT 0-11 by mouth Luke s ) 8 MG 00:00: every 8 Medical disintegrat 00 (eight) Cente r ing tablet hours as needed. dicyclomine 2021-10 Yes 10mg Q.[id number] Take [address] (BENTYL) 10 0-11 [id number] by mouth 3 [facility] MG capsule 00:00: 3D (three) Medi chace 00 times Center daily. ondansetron 2021-10 Yes 8mg Take [address] (ZOFRAN-ODT 0-11 by mouth Luke s ) 8 MG 00:00: every 8 Medical disintegrat 00 (eight) Cente r ing tablet hours as needed. dicyclomine 2021-10 Yes 10mg Q.[id number] Take [address] (BENTYL) 10 0-11 [id number] by mouth 3 [facility] MG capsule 00:00: 3D (three) Medi chace 00 times Center daily. ondansetron 2021-10 Yes 8mg Take [address] (ZOFRAN-ODT 0-11 by mouth Luke s ) 8 MG 00:00: every 8 Medical disintegrat 00 (eight) Cente r ing tablet hours as needed. dicyclomine 2021-10 Yes 10mg Q.[id number] Take [address] (BENTYL) 10 0-11 [id number] by mouth 3 [facility] MG capsule 00:00: 3D (three) Medi chace 00 times Center daily. ondansetron 2021-10 Yes 8mg Take [address] (ZOFRAN-ODT 0-11 by mouth Luke s ) 8 MG 00:00: every 8 Medical disintegrat 00 (eight) Cente r ing tablet hours as needed. hydroxyzine hydroxyzine No hydroxyzin [place] HCl 50 [...] TABLET BY DAILY DAILY MOUTH TWICE DAILY Vital Signs Vital Name Observation Time Observation Value Comments Source BP Diastolic 2022-12-09 00:00:00 70 [facility]Hg[facility] Height 2022-12-09 00:00:00 75 [in_i] [facility] BMI (Body Mass 2022-12-09 00:00:00 22.9 kg/m2 [facility] Medical Index) Group BP Systolic 2022-12-09 00:00:00 126 mm[Hg] [facility] Body Weight 2022-12-09 00:00:00 183 [lb_av] [facility] BP Diastolic 2022-11-25 00:00:00 64 mm[Hg] [facility] Height 2022-11-25 00:00:00 75 [in_i] [facility] BMI (Body Mass 2022-11-25 00:00:00 23.6 kg/m2 [facility] Medical Index) Group BP Systolic 2022-11-25 00:00:00 120 mm[Hg] [facility] Body Weight 2022-11-25 00:00:00 189 [lb_av] [facility] HEIGHT 2022-09-06 10:00:00 190.5 cm WEIGHT 2022-09-06 10:00:00 84.732 kg HEIGHT 2022-09-06 10:00:00 190.5 cm WEIGHT 2022-09-06 10:00:00 84.732 kg HEIGHT 2022-09-06 10:00:00 190.5 cm WEIGHT 2022-09-06 10:00:00 84.732 kg Systolic blood 2022-09-21 07:00:00 105 mm[Hg] [facility] Diastolic blood 2022-09-21 07:00:00 64 mm[Hg] [facility] Heart rate 2022-09-21 07:00:00 72 /min [facility] Body temperature 2022-09-21 07:00:00 36.28 Tuy[facility] Respiratory rate 2022-09-21 07:00:00 18 /min [facility] Oxygen saturation in 2022-09-21 07:00:00 99 /min [facility] Arterial blood by Medical Ce nter Pulse oximetry Systolic blood 2022-09-07 07:00:00 115 mm[Hg] [facility] Diastolic blood 2022-09-07 07:00:00 62 mm[Hg] [facility] Heart rate 2022-09-07 07:00:00 62 /min [facility] Body temperature 2022-09-07 07:00:00 36.39 [facility] Respiratory rate 2022-09-07 07:00:00 18 /min [facility] Oxygen saturation in 2022-09-07 07:00:00 99 /min [facility] Arterial blood by Medical Ce nter Pulse oximetry Body height 2022-09-06 10:00:00 190.5 cm [facility] Body weight 2022-09-06 10:00:00 84.732 kg [facility] BMI 2022-09-06 10:00:00 23.35 kg/m2 [facility] Procedures Procedure Date / Time Performing Clinician Source Performed Laparoscopic 2022-11-26 00:00:00 [place] [facility] BASIC METABOLIC PANEL 2022-09-21 06:12:00 OrtizKiki wong [facility] HEPATIC FUNCTION PANEL 2022-09-21 06:12:00 Kiki Ortiz [facility] MAGNESIUM 2022-09-21 06:12:[place] [facility] [place] W/[facility]T COUNT & AUTO 2022-09-21 06:12:00 OrtizKiki [facility] LIPASE 2022-09-21 06:12:00 [facility] W/PLT COUNT & AUTO 2022-09-21 06:12[facility] 2022-09-21 00:00:00 Kita [facility] CBC W/PLT COUNT & AUTO 2022-09-07 04:55:[address] [facility] CBC W/PLT COUNT & AUTO 2022-09-07 04:55:[address] [facility] BASIC METABOLIC PANEL 2022-09-07 04:54:00 Kristal Javier [facility] [place] ESOPHAGUS 2022-09-06 13:55:[address] [facility] Cholecystectomy, Amanda [place] Medic al Laparoscopic (Surg) Group Plan of Care Planned Activity Planned Date Details Comments Source Future Scheduled 2023-07-01 Influenza Vaccine (Season [facility] 00:00:00 Ended) [code = Influenza Med ical Center Vaccine (Season Ended)] Future Scheduled 2023-07-01 Influenza Vaccine (Season [facility] 00:00:00 Ended) [code = Influenza Med ical Center Vaccine (Season Ended)] Future Scheduled 2023-07-01 Influenza Vaccine (#1) [facility] 00:00:00 [code = Influenza Vaccine Ny dicnv Center (#1)] Future Scheduled 2022-10-31 DEPRESSION SCREENING [facility] Test 00:00:00 (12+) [code = DEPRESSION Med ical Center SCREENING (12+)] Future Scheduled 2022-10-[address] [facility] Test 00:00:00 (12+) [code = DEPRESSION Med ical Center SCREENING (12+)] Future Scheduled 2022-10-[address] [facility] Test 00:00:00 (12+) [code = DEPRESSION Med ical Center SCREENING (12+)] Future Scheduled 2022-10-[address] [facility] Test 00:00:00 (12+) [code = DEPRESSION Med ical Center SCREENING (12+)] Future Scheduled 2022-07-01 INFLUENZA VACCINE (#1) [facility] Test 00:00:00 [code = INFLUENZA VACCINE Me dical Center (#1)] Future Scheduled 2022-07-01 INFLUENZA VACCINE (#1) [facility] 00:00:00 [code = INFLUENZA VACCINE Me dical Center (#1)] Future Scheduled 2021-10-[address] [facility] Test 00:00:00 (12+) [code = DEPRESSION Med ical Center SCREENING (12+)] Future Scheduled 2017 DTAP/TDAP/TD VACCINES ([address] [facility] Test 00:00:00 - Tdap) [code = Medical Cent er DTAP/TDAP/TD VACCINES (1 - Tdap)] Future Scheduled 2017 DTAP/TDAP/TD VACCINES ([address] [facility] Test 00:00:00 - Tdap) [code = Medical Cent er DTAP/TDAP/TD VACCINES (1 - Tdap)] Future Scheduled 2017 DTAP/TDAP/TD VACCINES ([address] [facility] Test 00:00:00 - Tdap) [code = Medical Cent er DTAP/TDAP/TD VACCINES (1 - Tdap)] Future Scheduled 2017 DTAP/TDAP/TD VACCINES ([address] [facility] Test 00:00:00 - Tdap) [code = Medical Cent er DTAP/TDAP/TD VACCINES (1 - Tdap)] Future Scheduled 2017 DTAP/TDAP/TD VACCINES ([address] [facility] Test 00:00:00 - Tdap) [code = Medical Cent er DTAP/TDAP/TD VACCINES (1 - Tdap)] Future Scheduled [...] HEPATITIS C Medical Center SCREENING] Future Scheduled [address] [facility] Test 00:00:00 virus screening Medical Cent er (procedure) [code = 991240006] Future Scheduled [address] [facility] Test 00:00:00 Counseling and Screening Med ical Center (12+) [code = Tobacco Cessation Counseling and Screening (12+)] Future Scheduled [address] [facility] Test 00:00:00 Counseling and Screening Med ical Center (12+) [code = Tobacco Cessation Counseling and Screening (12+)] Future Scheduled [address] [facility] Test 00:00:00 Counseling and Screening Med ical Center (12+) [code = Tobacco Cessation Counseling and Screening (12+)] Future Scheduled [address] [facility] Test 00:00:00 Counseling and Screening Med ical Center (12+) [code = Tobacco Cessation Counseling and Screening (12+)] Future Scheduled [address] [facility] Test 00:00:00 Counseling and Screening Med ical Center (12+) [code = Tobacco Cessation Counseling and Screening (12+)] Future Scheduled 1998 COVID-19 VACCINE (#1[facility] 00:00[facility]00 [code = COVID-19 VACCINE Med ical Center (#1)] Future Scheduled 1998 COVID-19 VACCINE (#1[facility] 00:00:00 [code = COVID-19 VACCINE Med ical Center (#1)] Future Scheduled 1998 COVID-19 VACCINE (#1[facility] 00:00:00 [code = COVID-19 VACCINE Med ical Center (#1)] Future Scheduled 1998 COVID-19 VACCINE (#1[facility] 00:00:00 [code = COVID-19 VACCINE Med ical Center (#1)] Future Scheduled 1998 COVID-19 VACCINE (#1[facility] 00:00:00 [code = COVID-19 VACCINE Med ical Center (#1)] Encounters Start End Encounter Admission Attending Care Care Encounter Source Date/Time Date/Time Type Type Clinicians Facility Department ID 2022-10-04 Inpatient [facility] [id number] [facility] 15:21:56 [id number] [facility] 2022-09-17 Inpatient [facility] [id number] [facility] 14:08:35 [id number] [facility] 2022-09-09 Inpatient TOM CALLEJAS [facility] [id number] [place] 08:00:00 TAMY -[id number] [facility] 2022-08-13 Inpatient CRISTOFER BARTH [facility] [id number] [place] 10:30:00 -[id number] [facility] 2023-04-28 2023-04-28 Outpatient IHDE_G MMG MMG [id number] [place] 00:00:00 00:00:00 0629 Medical [facility] 2023-03-24 2023-03-24 Outpatient IHDE_G MMG MMG [id number] [place] 00:00:00 00:00:00 0525 [facility] 2023-02-18 2023-02-18 Outpatient SAGLIME_JOH [facility] [id number] [place] 00:00:00 00:00:00 N [id number] [facility] 2023-02-17 2023-02-17 Outpatient IHDE_G MMG MMG [id number] [place] 00:00:00 00:00:00 0421 [facility] 2023-01-13 2023-01-13 Outpatient IHDE_G MMG MMG [id number] [place] 00:00:00 00:00:00 0316 [facility] 2022-12-09 2022-12-09 Outpatient IHDE_G MMG MMG [id number] [place] 00:00:00 00:00:00 0209 [facility] 2022-12-09 2022-12-09 Outpatient IHDE_G MMG MMG [id number] [place] 00:00:00 00:00:00 0210 [facility] 2022-12-09 2022-12-09 Willem G [place] - [id number] [facility] 00:00:00 00:00:00 Kade Franco MD: Medical Medica [address], [place] [address] , Ph. [phone] 2022-12-03 2022-12-03 Outpatient IHDE_G MMG MMG [id number] [place] 00:00:00 00:00:00 0205 [facility] 2022-12-03 2022-12-03 Outpatient IHDE_G MMG MMG [id number] [place] 00:00:00 00:00:00 0206 [facility] 2022-11-26 2022-11-26 Outpatient EL Ihde, Willem [facility] [id number] [place] 08:01:00 08:01:00 -[id number] [facility] 2022-11-26 2022-11-26 Outpatient IHDE_G MMG MMG [id number] [place] 00:00:00 00:00:00 0130 [facility] 2022-11-26 2022-11-26 Outpatient IHDE_G MMG MMG [id number] [place] 00:00:00 00:00:00 0201 [facility] 2022-11-25 2022-11-25 Outpatient IHDE_G MMG MMG [id number] [place] 00:00:00 00:00:00 0126 [facility] 2022-11-25 2022-11-25 Outpatient IHDE_G MMG MMG [id number] [place] 00:00:00 00:00:00 0127 [facility] 2022-11-25 2022-11-25 Willem MMG [place] - [id number] [facility] 00:00:00 00:00:00 Kade Franco MD: Medical Medica [address], [place] [address] , Ph. [phone] 2022-11-22 2022-11-22 Outpatient IHDE_G MMG [facility] [id number] [place] 00:00:00 00:00:00 0123 [facility] 2022-10-20 2022-10-20 Outpatient MODE_MARIANA [facility] [id number] [place] 00:00:00 00:00:00 _DAIN [id number] [facility] 2022-10-01 2022-10-01 Outpatient TOM CAUSEYCLEVEBETTIE [facility] [id number] [place] 08:48:00 08:48:00 TAMY -[id number] [facility] 2022-09-21 2022-09-21 [facility] [id number] 02:06:00 12:14:00 Encounter Marlon Chester [facility] 2022-09-21 2022-09-21 Outpatient UR NEMO [facility] [id number] SLE 02:06:00 12:14:00 MARLON 2022-09-21 2022-09-21 [facility] Kiki [facility] [id number] 02:06:00 12:14:00 Encounter Marlon Chester [facility] 2022-09-21 2022-09-21 Travel [facility] [id number] [facility] 00:[facility]00 00:00:00 [facility] 2022-09-21 2022-09-21 Travel [facility] [id number] [facility] 00:00:00 00:00:00 [facility] 2022-09-06 2022-09-07 [facility] ER Ortiz, Kiki [facility] [id number] 09:47:00 12:27:00 Encounter Kristal Javier, [facility] 2022-09-06 2022-09-07 Inpatient ER FRANSISCO [facility] [id number] [facility] 09:47:00 12:27:00 [facility] 2022-09-06 2022-09-07 [facility] [id number] 09:47:00 12:27:00 [facility] 2022-09-06 2022-09-06 Travel [facility] [id number] [facility] 00:[facility]00 00:00:00 [facility] 2022-09-06 2022-09-06 Travel [facility] [id number] [facility] 00:[facility]:00 00:00:00 [facility] 2020-08-22 2020-08-22 Emergency ER GIANNONE, [facility] [id number] [place] 13:24:00 19:14:00 RAJI [id number] [facility] 2020-08-21 2020-08-21 Emergency ER SAIFI, [facility] [id number] [place] 20:03:00 21:17:00 EMMY -[id number] [facility] 2020-08-19 2020-08-19 Emergency ER SAIFI, [facility] [id number] [place] 21:03:00 21:51:00 EMMY -[id number] [facility] 2020-08-06 2020-08-06 Outpatient SOLIS_SMITH AKHOP AKHOP [id number] [place] 05:03:00 05:03:00 _DAIN [id number] [facility] 2020-08-06 2020-08-06 Outpatient SOLIS_SMITH AKHOP AKHOP 104 [id number] [place] 05:03:00 05:03:00 _DAIN [id number] [facility] 2020-03-19 2020-03-19 Outpatient SOLIS_SMITH AKHOP MEHOP 104 [id number] [place] 04:46:00 04:46:00 _DAIN [id number] [facility] 2019-01-10 2019-01-10 Departed 1 ZAKI [facility] [id number] [facility] 11:35:00 15:45:00 Emergency VIOLETTA 88 [facility] Room Patient [facility] 2018-04-18 2018-04-18 Outpatient TOM Callejas, [facility] [id number] [place] 10:41:00 10:41:00 Tamy -[id number] [facility] 2016-12-01 2016-12-01 Emergency ER MALLY, [facility] [id number] [place] 18:11:00 20:46:00 RAJI -[id number] [facility] 2015-06-22 2015-06-22 Emergency ER AMITA SINGH [facility] [id number] [place] 14:49:00 15:30:00 -[id number] [facility] Results Test Description Test Time Test Comments Results Result Comments Source pathology S# 2022-11-30 17:15:00 Test Item Value Reference Range Interpretation Comme nts pathology S# (test code = pathology S#) see [facility] report[facility] 17:15:00 Test Item Value Reference Range Interpretation Comments pathology S# (test code see emr pathology = pathology S#) [facility]. [facility] - [...] U/L 40-130 code = alkaline phosphatase, total) [facility] - [...] U/L 40-130 code = alkaline phosphatase, total) [facility] W Auto Differential panel - [id number] 15:54:00 Test Item Value Reference Range Interpretation [...] NRBC# (test code = NRBC#) 0 K/uL [facility] W Auto Differential panel - [id number] 15:54:00 Test Item Value Reference Range Interpretation [...] NRBC# (test code = NRBC#) 0 K/uL [facility]2022-11-22 07:12:52 Test Item Value Reference Range Interpretation Comments MAGNESIUM (BEAKER) (test code = 1.9 mg/dL 1.6-2.6 627) Boat Tender ID - PIAYA EPATIC FUNCTION [id number] 07:12:52 Test Item Value Reference Range Interpretation [...] (test code = 13 U/L 6-55 347) Boat Tender ID - MALGORZATA [id number] 07:12:52 Test Item Value Reference Range Interpretation Comments LIPASE (BEAKER) (test code = 749) 21 U/L 8-78 Boat Tender ID - MALGORZATA LBASIC METABOLIC [id number] 07:12:51 Test Item Value Reference Range Interpretation [...] not appl icable for dialysis patien ts Boat Tender ID - MALGORZATA LCBC W/PLT COUNT & AUTO [id number] 06:56:48 Test Item Value Reference Range Interpretation [...] (BEAKER) (test code = 2801) BASIC METABOLIC [id number] 08:05:14 Test Item Value Reference Range Interpretation [...] not appl icable for dialysis patien ts Boat Tender ID - MALGORZATA LOperator ID - MALGORZATA LCBC W/PLT COUNT & AUTO [id number] 05:49:48 Test Item Value Reference Range Interpretation [...] PERCENT (BEAKER) (test code = 2801) [place], [id number] 16:13:00Reason for exam:->presented with pneumomediatstinum, [facility] 2000 Sex: MFINAL REPORT Gastrografin esophagogram Clinical History: presented with pneumomediastinum, eval for esophageal perforation Discussion: Gastrografin is given to the patient to drink, without difficulties. The esophageal motility, and caliber is normal. No contrast extravasation. Fluoro time: 0.6 minutes Number of images obtained: 6 Signed: Nancy Julien Verified Date/Time: 09/06/2022 16:13:21 Reading Location: [facility] C013X Ortho Consult Reading Room CT SOFT TISSUE NEXK [id number] 15:05:00 [place] [id number] PatientName: JONO ZULETA MR #: [id number] : 2000 Age/Sex: 18/M Req #: [id number] Adm Physician: Ordered by: VIOLETTA HAINES MD Report #: [id number] Location: [facility] Room/Bed: Procedure: [id number] HOPD/CT SOFT TISSUE NEXK WITH-HOPD Exam Date: [...] The major cervical vessels are unremarkable. The rim roller setter, parapharyngeal, posterior cervical, and perivertebral spaces are [...] MD 1510 Transcribed By: IGGY on 01/10/19 1510COPY TO: VIOLETTA HAINES MD
[2023-05-17] MEDS ORDERED: MORPHINE 4 MG/ML SYR ONE (13:29)
[2023-05-17] MEDS ORDERED: ONDANSETRON 4 MG/2 ML VIAL ONE (13:30)
[2023-05-17 13:37] LABS: Absolute Lymphocytes (CBC) 2.4 K/uL (0.7-4.9); Hematocrit 43.3 % (39.6-49.0); Lymphocytes % 31.6 % (15.3-44.8); MPV 8.5 fL (7.6-11.3); RBC Red Blood Cell Count 4.87 M/uL (4.33-5.43)
[2023-05-17 13:50] LABS: Potassium 4.4 mEq/L (3.5-5.1)
--- NOTE | 2023-05-17 13:54 | RAD REPORT ---
EXAM DESCRIPTION: CT - Soft Tissue Neck W/Contr CLINICAL HISTORY: Facial pain;Sore throat;Pain;Swelling COMPARISON: <Comparisons> TECHNIQUE All CT scans are performed using dose optimization technique as appropriate and may includ e automated exposure control or mA/KV adjustment according to patient size. FINDINGS: Nasopharyngeal tissues are normal in appearance. Fossa Rosenmller are normal. Lymphoid tissue is prominent nasopharynx and both palatine tonsils. Tongue base structures are normal . Epiglottis and aryepiglottic folds are normal. Piriform sinuses are well aerated. The vocal cords are normal in appearance. Salivary glands are normal in appearance. Mildly prominent lymph nodes are seen in the neck. Thyroid gland is normal. Upper lung milligan are clear. Included intracranial contents are unremarkable. Mild skin thickening and soft tissue swelling along left aspect of the face is noted. No prevertebral abscess. IMPRESSION: Lymphoid prominence is seen throughout the neck. No abscess is evident. Nonspecific left-sided skin thickening and inflammation without fluid collection or other abnormal fi nding.
[2023-05-17] MEDS ORDERED: KETOROLAC 30 MG/ML INJ ONE (14:37)
--- NOTE | 2023-05-17 15:29 | ER ---
Nurse's Notes [facility] Name: Alexander Saldivar Age: 23 yrs Sex: Male : 2000 Arrival Date: 05/17/2023 Time: 11:59 Bed 19 Private MD: Diagnosis: Diffuse lymphoid inflamation without abscess or enduration. Presentation: 05/17 12:21 Chief complaint: Patient states: "the whole left side of my face is swollen and it aa5 hurts from my neck up". Pt denies sore throat, denies fever, denies toothache. Coronavirus screen: At this time, the client does not indicate any symptoms associated with coronavirus-19. Ebola Screen: Patient denies travel to an Ebola-affected area in the 21 days before illness onset. Initial Sepsis Screen: Does the patient meet any 2 criteria? No. Patient's initial sepsis screen is negative. Does the patient have a suspected source of infection? No. Patient's initial sepsis screen is negative. Risk Assessment: Do you want to hurt yourself or someone else? Patient reports no desire to harm self or others. Onset of symptoms was April 2023. 12:21 Acuity: PEEWEE 3 aa5 12:21 Method Of Arrival: Ambulatory aa5 Triage Assessment: 12:30 General: Appears in no apparent distress. uncomfortable, Behavior is cooperative, bp appropriate for age, anxious. Pain: Complains of pain in face. EENT: No deficits noted. Neuro: No deficits noted. Cardiovascular: No deficits noted. Respiratory: No deficits noted. GI: No signs and/or symptoms were reported involving the gastrointestinal system. : No signs and/or symptoms were reported regarding the genitourinary system. Derm: No deficits noted. Musculoskeletal: No deficits noted. Historical: - Allergies: 12:21 Bentyl; aa5 - PMHx: 12:21 Anxiety; depressive disorder; aa5 - PSHx: 12:21 wisdom teeth removal; aa5 - Immunization history:: Adult Immunizations unknown. - Social history:: Smoking status: Patient reports the use of cigarette tobacco products, denies chronic smoking, but will smoke occasionally, Patient uses street drugs, marijuana. Screenin:55 [facility] ED Fall Risk Assessment (Adult) History of falling in the last 3 months, bp including since admission No falls in past 3 months (0 pts). Abuse screen: Denies threats or abuse. Denies injuries from another. Nutritional screening: No deficits noted. Tuberculosis screening: No symptoms or risk factors identified. Assessment: 12:30 General: SEE TRIAGE NOTE. bp 13:38 Reassessment: PT RETURNED FROM CT. bp 15:41 Reassessment: DC HOME AMBULATORY. bp Vital Signs: 12:21 BP 134 / 78; Pulse 67; Resp 18 S; Temp 97.7; Pulse Ox 100% on R/A; Weight 86.18 kg (R); aa5 Height 6 ft. 3 in. (R); 12:30 BP 135 / 91; Pulse 64; Resp 16; Pulse Ox 100% ; bp 14:00 BP 118 / 75; Pulse 64; Resp 16; Pulse Ox 100% ; bp 15:00 BP 118 / 93; Pulse 63; Resp 16; Pulse Ox 100% ; bp 12:21 Body Mass Index 23.75 (86.18 kg, 190.5 cm) aa5 ED Course: 12:04 Patient arrived in ED. mg5 12:09 Joey Stuart MD is Attending Physician. kdr 12:20 Arm band placed on. aa5 12:22 Triage completed. aa5 12:43 Albert Gonzalez, LEONARD is Primary Nurse. bp 13:25 Inserted saline lock: 20 gauge in right antecubital area, using aseptic technique. bp Blood collected. 13:37 CT Soft Tissue Neck W/contr In Process Unspecified. EDMS 13:55 Patient has correct armband on for positive identification. Bed in low position. Call bp light in reach. Side rails up X2. 15:41 No provider procedures requiring assistance completed. IV discontinued, intact, bp bleeding controlled, No redness/swelling at site. Pressure dressing applied. Administered Medications: 13:25 Drug: morphine IVP or IV 4 mg Route: IVP; Infused Over: 4 mins; Site: right antecubital;bp 15:42 Follow up: Response: No adverse reaction bp 13:25 Drug: Ondansetron IVP 4 mg Route: IVP; Site: right antecubital; bp 15:42 Follow up: Response: No adverse reaction bp 14:36 Drug: Ketorolac IVP 15 mg Route: IVP; Site: right antecubital; bp 15:42 Follow up: Response: No adverse reaction bp Medication: 12:30 VIS not applicable for this client. bp Outcome: 15:29 Discharge ordered by . kdr 15:41 Discharged to home ambulatory, with family. bp 15:41 Condition: stable 15:41 Discharge instructions given to patient, Instructed on discharge instructions, follow up and referral plans. medication usage, Demonstrated understanding of instructions, follow-up care, medications, Prescriptions given X 2. 15:42 Patient left the ED. bp Signatures: Dispatcher [employer] EDMS Joey Stuart MD MD kdr Calderon, Audri, RN RN aa5 Albert Gonzalez RN RN bp Carla Omer mg5
--- NOTE | 2023-05-17 15:29 | EDPHYS ---
Physician Documentation [facility] Name: Alexander Saldivar Age: 23 yrs Sex: Male : 2000 Arrival Date: 05/17/2023 Time: 11:59 Bed 19 Private MD: ED Physician Joey Stuart HPI: 05/17 16:34 This 23 yrs old Male presents to ER via Ambulatory with complaints of Facial Swelling. kdr 16:34 Patient presents with pain to left side of his face and neck. Been going on since kdr yesterday. Patient's had nothing like this before. Denies any injury or trauma. Denies any dental involvement. He states that the pain hurts down his hearing into his left eye and then down his neck. Patient appears nontoxic at this time otherwise is stable. His face appears minimally swollen on the left side.. Onset: The symptoms/episode began/occurred yesterday. Severity of symptoms: At their worst the symptoms were mild moderate in the emergency department the symptoms are unchanged. The patient has not experienced similar symptoms in the past. The patient has not recently seen a physician. Historical: - Allergies: 12:21 Bentyl; aa5 - PMHx: 12:21 Anxiety; depressive disorder; aa5 - PSHx: 12:21 wisdom teeth removal; aa5 - Immunization history:: Adult Immunizations unknown. - Social history:: Smoking status: Patient reports the use of cigarette tobacco products, denies chronic smoking, but will smoke occasionally, Patient uses street drugs, marijuana. ROS: 16:34 Constitutional: Negative for fever, chills, and weight loss, Eyes: Negative for injury, kdr pain, redness, and discharge, ENT: Negative for injury, pain, and discharge, Cardiovascular: Negative for chest pain, palpitations, and edema, Respiratory: Negative for shortness of breath, cough, wheezing, and pleuritic chest pain, Abdomen/GI: Negative for abdominal pain, nausea, vomiting, diarrhea, and constipation, Back: Negative for injury and pain, : Negative for injury, bleeding, discharge, and swelling, MS/Extremity: Negative for injury and deformity, Skin: Negative for injury, rash, and discoloration, Neuro: Negative for headache, weakness, numbness, tingling, and seizure activity. Psych: Negative for depression, anxiety, suicide ideation, homicidal ideation, and hallucinations, Allergy/Immunology: Negative for hives, rash, and allergies, Endocrine: Negative for neck swelling, polydipsia, polyuria, polyphagia, and marked weight changes, Hematologic/Lymphatic: Negative for swollen nodes, abnormal bleeding, and unusual bruising. 16:34 Neck: Positive for pain at rest, swelling, of the face, right ear, right gnosticist, right zygomatic area, right cheek, left posterior aspect of neck, left lateral aspect of neck, left anterior aspect of neck and left side of neck. Exam: 16:34 Constitutional: This is a well developed, well nourished patient who is awake, alert, kdr and in no acute distress. Eyes: Pupils equal round and reactive to light, extra-ocular motions intact. Lids and lashes normal. Conjunctiva and sclera are non-icteric and not injected. Cornea within normal limits. Periorbital areas with no swelling, redness, or edema. Chest/axilla: Normal chest wall appearance and motion. Nontender with no deformity. No lesions are appreciated. Cardiovascular: Regular rate and rhythm with a normal S1 and S2. No gallops, murmurs, or rubs. Normal PMI, no JVD. No pulse deficits. 16:34 Head/face: Patient complains of diffuse tenderness on the left side of his face preauricular area that radiates down the left side into his mid to lower neck. There is minimal swelling appreciated by myself and the nurse. There is no into induration of tissue, or evidence of cellulitis. There is no abscess. Dental exam is normal.. Vital Signs: 12:21 BP 134 / 78; Pulse 67; Resp 18 S; Temp 97.7; Pulse Ox 100% on R/A; Weight 86.18 kg (R); aa5 Height 6 ft. 3 in. (R); 12:30 BP 135 / 91; Pulse 64; Resp 16; Pulse Ox 100% ; bp 14:00 BP 118 / 75; Pulse 64; Resp 16; Pulse Ox 100% ; bp 15:00 BP 118 / 93; Pulse 63; Resp 16; Pulse Ox 100% ; bp 12:21 Body Mass Index 23.75 (86.18 kg, 190.5 cm) aa5 MDM: 15:29 Patient medically screened. kdr 16:34 Data reviewed: vital signs, nurses notes. ED course: Patient had some relief with the kdr initial morphine but had substantial relief with the Toradol. We discussed the findings and indicating a diffuse inflammation and inflammatory response. This would suggest that he responded well to the anti-inflammatory medication past. Patient appeared well and nontoxic in any way at time of discharge. Patient was otherwise happy with the care provided the plan for discharge and follow-up. 05/17 13:08 Order name: CBC with Diff; Complete Time: 14: kdr 05/17 13:08 Order name: Chem 7; Complete Time: 14: kdr 05/17 14:02 Order name: [place] Screen Profile; Complete Time: 15:20 kdr 05/17 13:08 Order name: CT Soft Tissue Neck W/contr; Complete Time: 14: kdr Administered Medications: 13:25 Drug: morphine IVP or IV 4 mg Route: IVP; Infused Over: 4 mins; Site: right antecubital;bp 15:42 Follow up: Response: No adverse reaction bp 13:25 Drug: Ondansetron IVP 4 mg Route: IVP; Site: right antecubital; bp 15:42 Follow up: Response: No adverse reaction bp 14:36 Drug: Ketorolac IVP 15 mg Route: IVP; Site: right antecubital; bp 15:42 Follow up: Response: No adverse reaction bp Disposition Summary: 05/17/23 15:29 Discharge Ordered Location: Home kdr Problem: new kdr Symptoms: have improved kdr Condition: Stable kdr Diagnosis - Diffuse lymphoid inflamation without abscess or enduration. kdr Followup: kdr - With: Private Physician - When: 2 - 3 days - Reason: If symptoms return, Further diagnostic work-up, Recheck today's complaints, Continuance of care, Re-evaluation by your physician Discharge Instructions: - Discharge Summary Sheet kdr Forms: - Medication Reconciliation Form kdr - Thank You Letter kdr - Patient Portal Instructions kdr Prescriptions: - Ibuprofen 600 mg Oral Tablet - take 1 tablet by ORAL route every 6 hours As needed take with food; 15 tablet; kdr Refills: 0, Product Selection Permitted - Medrol (Shane) 4 mg Oral Tablets, Dose Pack - take 1 tablet by ORAL route as directed - follow package instructions; 1 kdr packet; Refills: 0, Product Selection Permitted Signatures: Dispatcher [employer] EDJoey Ortiz MD MD kdr Makayla Jones, RN RN aa5 Albert Gonzalez, LEONARD RN bp
[2023-05-17 15:59] VITALS: TEMP 97.7; O2SAT 100
[2023-05-17 16:12] VITALS: BP 118/93
== END 2023-05-17 15:42 | disposition home or self-care (01) ==
LOC: ER 11:59
DX: M79.89 Other specified soft tissue disorders (principal); Z88.8 Allergy status to other drugs, medicaments and biological substances
CPT/HCPCS: 85025; 80048; 36415; 86308; 70491; Q9967; J2405

== ENCOUNTER 2023-10-01 03:13 | Observation (INO) | payer BC ==
--- OUTSIDE RECORDS SUMMARY | 2023-10-01 03:18 | XMS REPORT | Continuity of Care Document ---
:[address] [facility] t Address [address] [facility] [place] [address] Care Team Providers Name Role Phone NONSTAFF Primary Care Physician Unavailable TAMY CALLEJAS Attending Clinician Unavailable CRISTOFER VEGA Attending Clinician Unavailable BAUTISTA Attending Clinician Unavailable LAINEY Attending Clinician Unavailable Willem Abad Attending Clinician Unavailable YOLA Attending Clinician Unavailable Kiki Ortiz MD Attending Clinician Marlon Chester MD Attending Clinician [phone] MARLON CHESTER Attending Clinician Unavailable Kristal Javier MD Attending Clinician Rachael Mulligan MD Attending Clinician Fransisco LANDRY, Sean Del Rio Attending Clinician SEAN HE V. Attending Clinician Unavailable RAJI BAL Attending Clinician Unavailable EMMY MOLINA Attending Clinician Unavailable VIOLETTA HAINES V Attending Clinician Unavailable AMITA SINGH Attending Clinician Unavailable BAUTISTA Admitting Clinician Unavailable LAINEY Admitting Clinician Unavailable YOLA Admitting Clinician Unavailable KIKI ORTIZ Admitting Clinician Unavailable KRISTAL JAVIER Admitting Clinician Unavailable Payers Payer Name Policy Type Policy Effective Date Expiration Date Sour ce Number [place] [id number] 2022 ADVANTAGE (HMO) 00:00:00 [facility] [id number] [address] [id number] [address] [facility] 00:00:00 Patient Medical Center Problems Condition Condition Condition Status Onset Resolution Last Treating Co mments Source Name Details Category Date Date Treatment Clinician Date Abdominal Abdominal Disease Active 2021-[address] [facility] 11[facility]21 [facility]: Medical 00 [place] Pneumomedi Pneumomedi Disease Recurre 2021-[address] [facility] Sexual orientation [facility] History SDOH 2022-09-21 2022-09-[address] [facility] Transport Med 00:00:00 00:00:[address] History SDOH Housing 2022-09-21 2022-09-[address] [facility] Unable to Pay 00:00:00 00:00:[address] History SDOH Housing 2022-09-21 2022-09-[address] [facility] Places Lived 00:00:00 00:00:00 Medical Cent er History SDOH Housing 2022-09-21 2022-09-[address] [facility] Homeless Last Year 00:00:00 00:00:00 Medica l Center History of Social 2022-09-21 2022-09-[address] [facility] function 00:00:00 00:00:00 Medical Center Exposure to 2022-08-27 2022-09-06 Not sure [facility] St PlastiPure SARS-CoV-2 (event) 00:00:00 10:55:00 [facility] [facility] [place] Sex Assigned At [address] [facility] 00:00:00 00:00:00 Medical Center Smoking Status Start Date Stop Date Source Light Tobacco Smoker [facility] Medications Ordered Filled Start Stop Current Ordering Indication Dosage Frequency Signature Comments Components Source Medication Medication Date Date Medication? Clinician (SIG) Name Name sertraline 2021-10 No 50mg QD Take [address] [facility] (ZOLOFT) 50 11-21- tablet (50 [facility] MG tablet 00:00: [...] 00:00: 00:00 daily. Medical tablet 00 :00 [place] predniSONE 2021-10- No 60mg QD Take [address] (DELTASONE) 0-25 11-08 by mouth Yuri es 10 MG 00:00: 00:00 daily. Medical tablet 00 :00 [place] predniSONE 2021-10- No 60mg QD Take [address] (DELTASONE) 0-25 11-08 by mouth Yuri es 10 MG 00:00: 00:00 daily. Medical tablet 00 :00 [place] predniSONE 2021-2021- No 60mg QD Take [address] (DELTASONE) 0-25 11-08 by mouth Yuri es 10 MG 00:00: 00:00 daily. Medical tablet 00 :00 [place] predniSONE 2021-10- No 60mg QD Take [address] (DELTASONE) 0-25 11-08 by mouth Yuri es 10 MG 00:00: 00:00 daily. Medical tablet 00 :00 [place] dicyclomine 2021-10 Yes 10mg Q.[id number] Take [address] (BENTYL) 10 0-11 [id number] by mouth 3 [facility] MG capsule 00:00: 3D (three) Medi chace 00 times Center daily. ondansetron 2021-10 Yes 8mg Take [address] (ZOFRAN-ODT 0-11 by mouth Luke s ) 8 MG 00:00: every 8 Medical disintegrat 00 (eight) Cente r ing tablet hours as needed. dicyclomine 2021-10 Yes 10mg Q.[id number] Take [address] (BENTYL) 10 0-11 [id number] by mouth 3 [facility] MG capsule 00:00: 3D (three) Medi chace 00 times Center daily. ondansetron 2021-10 Yes 8mg Take [address] (ZOFRAN-ODT 0-11 by mouth Luke s ) 8 MG 00:00: every 8 Medical disintegrat 00 (eight) Cente r ing tablet hours as needed. dicyclomine 2021-10 Yes 10mg Q.[id number] Take [address] (BENTYL) 10 0-11 [id number] by mouth 3 [facility] MG capsule 00:00: 3D (three) Medi chace 00 times Center daily. ondansetron 2021-10 Yes 8mg Take [address] (ZOFRAN-ODT 0-11 by mouth Luke s ) 8 MG 00:00: every 8 Medical disintegrat 00 (eight) Cente r ing tablet hours as needed. dicyclomine 2021-10 Yes 10mg Q.[id number] Take [address] (BENTYL) 10 0-11 [id number] by mouth 3 [facility] MG capsule 00:00: 3D (three) Medi chace 00 times Center daily. ondansetron 2021-10 Yes 8mg Take [address] (ZOFRAN-ODT 0-11 by mouth Luke s ) 8 MG 00:00: every 8 Medical disintegrat 00 (eight) Cente r ing tablet hours as needed. dicyclomine 2021-10 Yes 10mg Q.[id number] Take [address] (BENTYL) 10 0-11 [id number] by mouth 3 [facility] MG capsule 00:00: 3D (three) Medi chace 00 times Center daily. ondansetron 2021-10 Yes 8mg Take [address] (ZOFRAN-ODT 0-11 by mouth Luke s ) 8 MG 00:00: every 8 Medical disintegrat 00 (eight) Cente r ing tablet hours as needed. dicyclomine 2021-10 Yes 10mg Q.[id number] Take [address] (BENTYL) 10 0-11 [id number] by mouth 3 [facility] MG capsule 00:00: [...] Source BP Diastolic 2022-12-09 00:00:00 70 [facility]Hg[facility] Height 2022-12-09 00:00:00 75 [in_i] [facility] BMI (Body Mass 2022-12-09 00:00:00 22.9 kg/m2 [facility] Group BP Systolic 2022-12-09 00:00:00 126 mm[Hg] [facility] Body Weight 2022-12-09 00:00:00 183 [lb_av] [facility] BP Diastolic 2022-11-25 00:00:00 64 mm[Hg] [facility] Height 2022-11-25 00:00:00 75 [in_i] [facility] BMI (Body Mass 2022-11-25 00:00:00 23.6 kg/m2 [facility] Group BP Systolic 2022-11-25 00:00:00 120 mm[Hg] [facility] Body Weight 2022-11-25 00:00:00 189 [lb_av] [facility] HEIGHT 2022-09-06 10:00:00 190.5 cm WEIGHT 2022-09-06 10:00:00 84.732 kg HEIGHT 2022-09-06 10:00:00 190.5 cm WEIGHT 2022-09-06 10:00:00 84.732 kg Systolic blood 2022-09-21 07:00:00 105 mm[Hg] [facility] Diastolic blood 2022-09-21 07:00:00 64 mm[Hg] [facility] Heart rate 2022-09-21 07:00:00 72 /min [facility] Body temperature 2022-09-21 07:00:00 36.28 Tuyet [facility] Respiratory rate 2022-09-21 07:00:00 18 /min [facility] Oxygen saturation in 2022-09-21 07:00:00 99 /min [facility] Arterial blood by Medical Ce nter Pulse oximetry Systolic blood 2022-09-07 07:00:00 115 mm[Hg] [facility] Diastolic blood 2022-09-07 07:00:00 62 mm[Hg] [facility] Heart rate 2022-09-07 07:00:00 62 /min [facility] Body temperature 2022-09-07 07:00:00 36.39 Tuyet [facility] Respiratory rate 2022-09-07 07:00:00 18 /min [facility] Oxygen saturation in 2022-09-07 07:00:00 99 /min [facility] Arterial blood by Medical Ce nter Pulse oximetry Body height 2022-09-06 10:00:00 190.5 cm [facility] Body weight 2022-09-06 10:00:00 84.732 kg [facility] BMI 2022-09-06 10:00:00 23.35 kg/m2 [facility] Procedures Procedure Date / Time Performing Clinician Source Performed Laparoscopic 2022-11-26 00:00:00 Igor mccallum [facility] BASIC METABOLIC PANEL 2022-09-21 06:12:00 Kiki Ortiz [facility] HEPATIC FUNCTION PANEL 2022-09-21 06:12:00 Kiki Ortiz [facility] MAGNESIUM 2022-09-21 06:12:00 Kiki Ortiz [facility] CBC W/PLT COUNT & AUTO 2022-09-21 06:12:[address] [facility] LIPASE 2022-09-21 [facility]:12[facility]O 2022-09-21 06:12:00 Kiki Ortiz [facility] EKG-SCANNED 2022-09-21 00:00:00 Provider, Default [facility] Scanning [facility] CBC W/PLT COUNT & AUTO 2022-09-07 04:55:00 Kristal Javier [facility] CBC W/PLT COUNT & AUTO 2022-09-07 04:55:[address] [facility] BASIC METABOLIC PANEL 2022-09-07 04:54:00 Kristal Javier CH I [facility] [place] ESOPHAGUS 2022-09-06 13:55:00 Adina Valera [facility] Cholecystectomy, [place] Medic al Laparoscopic (Surg) Group Plan of Care Planned Activity Planned Date Details Comments Source Future Scheduled 2023-07-01 Influenza Vaccine (Season [facility] Test 00:00:00 Ended) [code = Influenza Med ical Center Vaccine (Season Ended)] Future Scheduled 2023-07-01 Influenza Vaccine (Season [facility] Test 00:00:00 Ended) [code = Influenza Med ical Center Vaccine (Season Ended)] Future Scheduled 2023-07-01 Influenza Vaccine (#1) [facility] 00:00:00 [code = Influenza Vaccine Me dical Center (#1)] Future Scheduled 2023-07-01 Influenza Vaccine (#1) [facility] Test 00:00:00 [code = Influenza Vaccine Me dical Center (#1)] Future Scheduled 2022-10-[address] [...] Test 00:00:00 (12+) [code = DEPRESSION [facility] SCREENING (12+)] Future Scheduled 2017 DTAP/TDAP/TD [...] screening Medical Cent er (procedure) [code = 172551747] Future Scheduled [address] Human [address] [facility] Test 00:00:00 virus screening Medical Cent er (procedure) [code = 368758298] Future Scheduled [address] [...] Type Clinicians Facility Department ID 2022-10-04 Inpatient TEXANA TEXANA [id number] [place] 15:21:56 [id number] [place] 2022-09-17 Inpatient TEXANA TEXANA [id number] [place] 14:08:35 [id number] [place] 2022-09-09 Inpatient TOM CALLEJAS [facility] [id number] [place] 08:00:00 TAMY -[id number] [facility] 2022-08-13 Inpatient CRISTOFER BARTH [facility] [id number] [place] 10:30:00 -[id number] [facility] 2023-06-02 2023-06-02 Outpatient IHDE_G MMG MMG [id number] [place] 00:00:00 00:00:00 0803 [facility] 2023-04-28 2023-04-28 Outpatient IHDE_G MMG MMG [id number] [place] 00:00:00 00:00:00 0629 [facility] 2023-03-24 2023-03-24 Outpatient IHDE_G MMG MMG [id number] [place] 00:00:00 00:00:00 0525 Medical Group 2023-02-18 2023-02-18 Outpatient SAGLIME_JOH MEHOP MEHOP [id number] [place] 00:00:00 00:00:00 N [id number] [facility] Program 2023-02-17 2023-02-17 Outpatient IHDE_G MMG MMG [id number] [place] 00:00:00 00:00:00 0421 [facility] 2023-01-13 2023-01-13 Outpatient IHDE_G MMG MMG [id number] [place] 00:00:00 00:00:00 0316 [facility] 2022-12-09 2022-12-09 Outpatient IHDE_G MMG MMG [id number] [place] 00:00:00 00:00:00 0209 [facility] 2022-12-09 2022-12-09 Outpatient IHDE_G MMG MMG [id number] [place] 00:00:00 00:00:00 0210 [facility] 2022-12-09 2022-12-09 Willem G [place] - [id number] [place] 00:00:00 00:00:00 Kade Franco MD: Medical Medica [address], [place] [address] , Ph. [phone] 2022-12-03 2022-12-03 Outpatient IHDE_G MMG MMG [id number] [place] 00:00:00 00:00:00 0205 [facility] 2022-12-03 2022-12-03 Outpatient IHDE_G MMG MMG [id number] [place] 00:00:00 00:00:00 0206 [facility] 2022-11-26 2022-11-26 Outpatient EL Ihde, Willem [facility] [id number] [place] 08:01:00 08:01:00 -[id number] [facility] 2022-11-26 2022-11-26 Outpatient IHDE_G MMG MMG [id number] [place] 00:00:00 00:00:00 0130 [facility] 2022-11-26 2022-11-26 Outpatient IHDE_G MMG MMG [id number] [place] 00:00:00 00:00:00 0201 [facility] 2022-11-25 2022-11-25 Outpatient IHDE_G MMG [facility] [id number] [place] 00:00:00 00:00:00 0126 [facility] 2022-11-25 2022-11-25 Outpatient IHDE_G MMG MMG [id number] [place] 00:00:00 00:00:00 0127 [facility] 2022-11-25 2022-11-25 Willem MMG [place] - [id number] [place] 00:00:00 00:00:00 Kade Franco MD: Medical Medica [address], [place] [address] , Ph. [phone] 2022-11-22 2022-11-22 Outpatient IHDE_G MMG MMG [id number] [place] 00:00:00 00:00:00 0123 [facility] 2022-10-20 2022-10-20 Outpatient MODE_MARIANA [facility] [id number] [place] 00:00:00 00:00:00 _DAIN [id number] da [facility] Program 2022-10-01 2022-10-01 Outpatient TOM CALLEJAS [facility] [id number] [place] 08:48:00 08:48:00 TAMY -[id number] [facility] 2022-09-21 2022-09-21 [facility] Kiki Ortiz [facility] [id number] 02:06:00 12:14:00 Encounter Marlon Chester [facility] 2022-09-21 2022-09-21 Outpatient UR NEM[facility] [id number] [facility] 02:06:00 12:14:00 MARLON 2022-09-21 2022-09-21 Travel [facility] [id number] [facility] 00:[facility] 00:00:00 [facility] 2022-09-06 2022-09-07 [facility] ER Kiki Ortiz [facility] [id number] 09:47:00 12:27:00 Encounter Kristal Javeir, Rachael [facility] [place], [facility] 2022-09-06 2022-09-07 Inpatient ER MADHAV HE [facility] 3 [id number] [facility] 09:47:00 12:27:00 [facility] 2022-09-06 2022-09-06 Travel [facility] [id number] [facility] 00:00:00 00:00:00 [facility] 2020-08-22 2020-08-22 Emergency ER GIANNONE, [facility] [id number] [place] 13:24:00 19:14:00 RAJI -[id number] [facility] 2020-08-21 2020-08-21 Emergency ER SAIFI, [facility] [id number] [place] 20:03:00 21:17:00 [facility] -[id number] [facility] 2020-08-19 2020-08-19 Emergency ER SAIFI, [facility] [id number] [place] 21:03:00 21:51:00 EMMY -[id number] [facility] 2020-08-06 2020-08-06 Outpatient SOLIS_SMITH MEHOP MEHOP [id number] [place] 05:03:00 05:03:00 _DAIN 26441 [facility] 2020-08-06 2020-08-06 Outpatient SOLIS_SMITH MEHOP MEHOP [id number] [place] 05:03:00 05:03:00 _DAIN [id number] [facility] 2020-03-19 2020-03-19 Outpatient SOLIS_SMITH MEHOP MEHOP [id number] [place] 04:46:00 04:46:00 _DAIN [id number] [facility] 2019-01-10 2019-01-10 Departed 1 ZAKI, [facility] [id number] 11:35:00 15:45:00 Emergency VIOLETTA [facility] 2018-04-18 2018-04-18 Outpatient TOM Callejas, [facility] [id number] [place] 10:41:00 10:41:00 Tamy -[id number] [facility] 2016-12-01 2016-12-01 Emergency ER MALLY [facility] [id number] [place] 18:11:00 20:46:00 RAJI -[id number] [facility] 2015-06-22 2015-06-22 Emergency ER AMITA SINGH [facility] [id number] [place] 14:49:00 15:30:00 -[id number] [facility] Results Test Description Test Time Test Comments Results Result Comments Source pathology S# 2022-11-30 17:15:00 Test Item Value Reference Range Interpretation Comme nts pathology S# (test code = pathology S#) [facility] report[facility] 17:15:00 Test Item Value Reference Range Interpretation Comments pathology S# (test code see emr pathology = pathology S#) [facility]. [facility] - Serum or [...] U/L 40-130 code = alkaline phosphatase, total) [facility] - Serum or [...] U/L 40-130 code = alkaline phosphatase, total) [facility] W Auto Differential panel - [id number] 15:54:00 Test Item Value Reference Range Interpretation [...] NRBC# (test code = NRBC#) 0 K/uL [facility] W Auto Differential panel - [id number] 15:54:00 Test Item Value Reference Range Interpretation [...] NRBC# (test code = NRBC#) 0 K/uL [id number] 07:12:52 Test Item Value Reference Range Interpretation Comments MAGNESIUM (BEAKER) (test code = 1.9 mg/dL 1.6-2.6 627) [facility] Kerri MCGARRY LHEPATIC FUNCTION [id number] 07:12:52 Test Item Value Reference Range Interpretation [...] (test code = 13 U/L 6-55 347) [facility] - MALGORZATA [id number] 07:12:52 Test Item Value Reference Range Interpretation Comments LIPASE (BEAKER) (test code = 749) 21 U/L 8-78 [facility] - MALGORZATA LBASIC METABOLIC [id number] 07:12:51 Test Item Value Reference Range Interpretation [...] high >=90 G2 Mildly decreased 60-89 G3a Mild ly to moderately 45-5 9 G3b Moderately to [...] not appl icable for dialysis patien ts [facility] - PIAYA LCBC W/PLT COUNT & AUTO [id number] 06:56:48 Test Item Value Reference Range Interpretation [...] (BEAKER) (test code = 2801) BASIC METABOLIC [id number] 08:05:14 Test Item Value Reference Range Interpretation [...] not appl icable for dialysis patien ts [facility] - PIAYA LOperator ID - PIAYA LCBC W/PLT COUNT & AUTO [id number] 05:49:48 Test Item Value Reference Range Interpretation [...] PERCENT (BEAKER) (test code = 2801) [place], [id number] 16:13:00Reason for exam:->presented with pneumomediatstinum, eval [facility] 2000 Sex: MFINAL REPORT Gastrografin esophagogram Clinical History: presented with pneumomediastinum, eval for esophageal perforation Discussion: Gastrografin is given to the patient to drink, without difficulties. The esophageal motility, and caliber is normal. No contrast extravasation. Fluoro time: 0.6 minutes Number of images obtained: 6 Signed: Nancy Julien Verified Date/Time: 09/06/2022 16:13:21 Reading Location: [facility] B1 C013X Ortho Consult Reading Room CT SOFT TISSUE NEXK [id number] 15:05:00 [place] [address] Patient Name: JONO ZULETA MR #: [id number] : 2000 Age/Sex: 18/M Req#: [id number] Adm Physician: Ordered by: VIOLETTA HAINES MD Report #: [id number] Location: [facility] Room/Bed: Procedure: [id number] HOPD/CT SOFT TISSUE NEXK WITH-HOPD Exam Date: [...] seen. The thyroid gland is unremarkable. The submandibul ar and parotid glands are unremarkable. The major cervical vessels are unremarkable. The pediatric physician,parapharyngeal, posterior cervical, and perivertebral spaces are unremarkable. [...]
[2023-10-01 03:44] LABS: Absolute Lymphocytes (CBC) 1.6 K/uL (0.7-4.9); Hematocrit 46.2 % (39.6-49.0); Lymphocytes % 9.1 % (15.3-44.8); MPV 8.9 fL (7.6-11.3); Platelets 298 thou/uL (152-406); RBC Red Blood Cell Count 5.19 M/uL (4.33-5.43)
[2023-10-01] MEDS ORDERED: LORazepam 2 MG/ML VIAL ONE ×4 (03:50→17:38)
[2023-10-01] MEDS ORDERED: NA CHLORIDE 0.9% 2,000 ML ONE (03:51)
[2023-10-01 04:04] LABS: Albumin 4.6 g/dL (3.4-5.0); Bilirubin Total 0.3 mg/dL (0.2-1.0); Potassium 5.1 mEq/L (3.5-5.1); Protein, Total 9.1 g/dL (6.4-8.2)
[2023-10-01 04:12] LABS: Troponin High Sensitivity 116.6 pg/mL (<58.9)
--- NOTE | 2023-10-01 06:37 | ER ---
Nurse's Notes [facility] Name: Alexander Saldivar Age: 23 yrs Sex: Male : 2000 Arrival Date: 10/01/2023 Time: 03:13 Bed 3 Private MD: Diagnosis: Cocaine abuse;Subsequent non-ST elevation (NSTEMI) myocardial infarction Presentation: 10/01 03:28 Chief complaint: Patient states: "I did a bunch of cocaine and smoked some weed". jw Coronavirus screen: At this time, the client does not indicate any symptoms associated with coronavirus-19. Ebola Screen: No symptoms or risks identified at this time. Initial Sepsis Screen: Does the patient meet any 2 criteria? No. Patient's initial sepsis screen is negative. Does the patient have a suspected source of infection? No. Patient's initial sepsis screen is negative. Risk Assessment: Do you want to hurt yourself or someone else? Patient reports no desire to harm self or others. Onset of symptoms was October 01, 2023. 03:28 Method Of Arrival: Ambulatory [facility] 03:28 Acuity: PEEWEE 3 jw7 Triage Assessment: 03:30 General: Appears in no apparent distress. uncomfortable, Behavior is cooperative, jw7 anxious, crying, Smells of Marijuana . Pain: Denies pain. EENT: No deficits noted. No signs and/or symptoms were reported regarding the EENT system. Neuro: [place] Agitation-Sedation Scale (RASS): 0 - Alert and Calm Level of Consciousness is awake, alert, obeys commands, Oriented to person, place, time, situation. Cardiovascular: Reports diaphoresis, palpitations, shortness of breath, Capillary refill < 3 seconds Clubbing of nail beds is absent JVD is absent Patient's skin is warm and dry. Rhythm is sinus tachycardia. Respiratory: Airway is patent Trachea midline Respiratory effort is even, unlabored, Respiratory pattern is regular, symmetrical. GI: No deficits noted. No signs and/or symptoms were reported involving the gastrointestinal system. : No deficits noted. No signs and/or symptoms were reported regarding the genitourinary system. Derm: No deficits noted. No signs and/or symptoms reported regarding the dermatologic system. Musculoskeletal: No deficits noted. No signs and/or symptoms reported regarding the musculoskeletal system. Historical: - Allergies: 03:30 Bentyl; jw7 - Home Meds: 03:30 Hydralazine Oral [Active]; jw7 - PMHx: 03:30 Anxiety; depressive disorder; jw7 - PSHx: 03:30 wisdom teeth removal; jw7 - Immunization history:: Adult Immunizations up to date, Client reports having NOT received the Covid vaccine. Flu vaccine is not up to date. - Social history:: Smoking status: unknown Patient uses alcohol, occasionally. street drugs, cocaine, marijuana. - Family history:: not pertinent. Screenin:33 [facility] ED Fall Risk Assessment (Adult) History of falling in the last 3 months, jw7 including since admission No falls in past 3 months (0 pts) Score/Fall Risk Level 0 - 2 = Low Risk Oriented to surroundings, Maintained a safe environment. Abuse screen: Denies threats or abuse. Denies injuries from another. Nutritional screening: No deficits noted. Tuberculosis screening: No symptoms or risk factors identified. Assessment: 04:49 General: Appears unkempt, Behavior is cooperative, anxious, crying. Neuro: Level of nw1 Consciousness is awake, alert, obeys commands, Oriented to person, place, time, situation, Appropriate for age. Cardiovascular: Rhythm is sinus tachycardia. Respiratory: No deficits noted. GI: No deficits noted. No signs and/or symptoms were reported involving the gastrointestinal system. Derm: No signs and/or symptoms reported regarding the dermatologic system. Musculoskeletal: No signs and/or symptoms reported regarding the musculoskeletal system. Overdose: 03:35 [place] Suicide Severity Screening: "In the past month, have you wished you were jw7 or wished you could go to sleep and not wake up?" Patient responds "no." "In the past month, have you actually had any thoughts of killing yourself?" Patient responds "no." "In your lifetime, have you ever done anything, started to do anything, or prepared to do anything to end your life?" Patient responds "no.". Vital Signs: 03:28 BP 114 / 84; Pulse 141; Resp 12 S; Temp 99.1(O); Pulse Ox 99% on R/A; Weight 86.18 kg; jw7 Height 6 ft. 3 in. ; Pain 0/10; 04:49 BP 122 / 83; Pulse 113; Pulse Ox 100% ; nw1 05:56 BP 113 / 69; Pulse 104; Resp 16; Pulse Ox 97% on R/A; nw1 03:28 Body Mass Index 23.75 (86.18 kg, 190.5 cm) jw7 03:28 Pain Scale: Adult jw7 [place] Coma Score: 04:49 Eye Response: spontaneous(4). Motor Response: obeys commands(6). Verbal Response: nw1 oriented(5). Total: 15. ED Course: 03:13 Patient arrived in ED. jj6 03:17 Krishna Coronado MD is Attending Physician. rt 03:28 Inserted saline lock: 20 gauge in left antecubital area, using aseptic technique. Blood ls5 collected. 03:30 Triage completed. jw7 03:30 Arm band placed on. jw7 03:33 Patient has correct armband on for positive identification. Bed in low position. Call jw7 light in reach. 03:34 Robson Prieto RN is Primary Nurse. la4 04:13 Notified ED physician of a critical lab result(s). Troponin 116.6. vc1 05:07 Chest Single View XRAY In Process Unspecified. EDMS 06:36 Yaakov Langley is Hospitalizing Provider. rt 07:03 Patient transferred, IV remains in place. la4 07:03 Provided Education on: plan of care. la4 07:49 No provider procedures requiring assistance completed. rs5 Administered Medications: 03:48 Drug: NS 0.9% IV 1000 ml IV at 1 bolus Per protocol; 1000 mL bolus Route: IV; Rate: 1 nw1 bolus; Site: left antecubital; 04:23 Follow up: Response: No adverse reaction; IV Status: Completed infusion; IV Intake: la4 1000ml 03:49 Drug: Ativan IVP 2 mg IVP once Route: IVP; Site: left antecubital; nw1 04:22 Follow up: Response: No adverse reaction la4 Medication: 04:49 VIS not applicable for this client. nw1 Intake: 04:23 IV: 1000ml; Total: 1000ml. la4 Outcome: 06:36 Decision to Hospitalize by Provider. rt 07:49 Admitted to ER Hold. Please see [facility] for further documentation. rs5 07:49 Condition: stable 07:49 Instructed on the need for admit, Demonstrated understanding of instructions, 18:08 Patient left the ED. rs5 Signatures: Dispatcher [employer] EDMS Chloe Rivera jj6 Erika Johns, RN RN vc1 Nasrin King RN RN jw7 Krishna Coronado MD MD rt Duke Simmons RN RN rs5 Dirk Uribe5 Robson Prieto RN RN la4 Ryanne Leonard RN RN nw1 Corrections: (The following items were deleted from the chart) 07:01 Transferred by ground EMS to other acute care facility: [facility]. Transfer la4 form completed. X-rays sent w/ patient. Note: chart sent with pt la4 07: 07:01 Condition: stable la4 la4 07:01 Instructed on the need for transfer, Demonstrated understanding of instructions, la4 la4
--- NOTE | 2023-10-01 06:37 | EDPHYS ---
Physician Documentation [facility] Name: Alexander Saldivar Age: 23 yrs Sex: Male : 2000 Arrival Date: 10/01/2023 Time: 03:13 Bed 3 Private MD: ED Physician Krishna Coronado HPI: 10/01 06:06 This 23 yrs old Male presents to ER via Ambulatory with complaints of Palpitations - rt After cocaine use. 06:06 Patient presents to the ED with chest pain, palpitations following consumption of large rt amount of cocaine this evening he reports feeling somewhat paranoid. Denies other acute complaints at this time, symptoms are moderate severity, no other aggravating alleviating factors.. Historical: - Allergies: 03:30 Bentyl; jw7 - Home Meds: 03:30 Hydralazine Oral [Active]; jw7 - PMHx: 03:30 Anxiety; depressive disorder; jw7 - PSHx: 03:30 wisdom teeth removal; jw7 - Immunization history:: Adult Immunizations up to date, Client reports having NOT received the Covid vaccine. Flu vaccine is not up to date. - Social history:: Smoking status: unknown Patient uses alcohol, occasionally. street drugs, cocaine, marijuana. - Family history:: not pertinent. ROS: 06:06 Constitutional: Negative for fever, chills, and weight loss, Respiratory: Negative for rt shortness of breath, cough, wheezing, and pleuritic chest pain, Abdomen/GI: Negative for abdominal pain, nausea, vomiting, diarrhea, and constipation, MS/Extremity: Negative for injury and deformity, Skin: Negative for injury, rash, and discoloration, Neuro: Negative for headache, weakness, numbness, tingling, and seizure, Psych: Negative for depression, anxiety, suicide ideation, homicidal ideation, and hallucinations, 06:06 Cardiovascular: Positive for chest pain, palpitations, Exam: 06:06 Constitutional: This is a well developed, well nourished patient who is awake, alert, rt and in no acute distress. Head/Face: Normocephalic, atraumatic. Chest/axilla: Normal chest wall appearance and motion. Nontender with no deformity. No lesions are appreciated. Cardiovascular: Regular rate and rhythm with a normal S1 and S2. No gallops, murmurs, or rubs. Normal PMI, no JVD. No pulse deficits. Respiratory: Lungs have equal breath sounds bilaterally, clear to auscultation and percussion. No rales, rhonchi or wheezes noted. No increased work of breathing, no retractions or nasal flaring. Abdomen/GI: Soft, non-tender, with normal bowel sounds. No distension or tympany. No guarding or rebound. No evidence of tenderness throughout. Skin: Warm, dry with normal turgor. Normal color with no rashes, no lesions, and no evidence of cellulitis. MS/ Extremity: Pulses equal, no cyanosis. Neurovascular intact. Full, normal range of motion. Neuro: Awake and alert, GCS 15, oriented to person, place, time, and situation. Cranial nerves II-XII grossly intact. Motor strength 5/5 in all extremities. Sensory grossly intact. Cerebellar exam normal. Normal gait. Psych: Awake, alert, with orientation to person, place and time. Behavior, mood, and affect are within normal limits. 06:06 ECG was reviewed by the Attending Physician. Vital Signs: 03:28 BP 114 / 84; Pulse 141; Resp 12 S; Temp 99.1(O); Pulse Ox 99% on R/A; Weight 86.18 kg; jw7 Height 6 ft. 3 in. ; Pain 0/10; 04:49 BP 122 / 83; Pulse 113; Pulse Ox 100% ; nw1 05:56 BP 113 / 69; Pulse 104; Resp 16; Pulse Ox 97% on R/A; nw1 03:28 Body Mass Index 23.75 (86.18 kg, 190.5 cm) [facility] 03:28 Pain Scale: Adult [facility] [place] Coma Score: 04:49 Eye Response: spontaneous(4). Motor Response: obeys commands(6). Verbal Response: nw1 oriented(5). Total: 15. MDM: 03:23 Patient medically screened. rt 06:06 Differential diagnosis: Cocaine chest pain, NSTEMI, STEMI, pneumonia, pneumothorax. rt Data reviewed: vital signs, nurses notes, lab test result(s), EKG, radiologic studies. Consideration of Admission/Observation Patient was admitted/placed on observation. Management of patient was discussed with the following: Hospitalist: Agrees to admit. I considered the following discharge prescriptions or medication management in the emergency department Medications were administered in the Emergency Department. See MAR. Independent interpretation of the following test(s) in the Emergency Department X-Ray: My interpretation is No pneumonia seen on interpretation of x-ray images. Test considered but Not performed: CT: Low suspicion for PE, CT angiogram not indicated. Care significantly affected by the following Social Determinants of Health: Misuse of alcohol and/or drugs. Counseling: I had a detailed discussion with the patient and/or guardian regarding the historical points, exam findings, and any diagnostic results supporting the discharge/admit diagnosis, lab results, radiology results, the need for further work-up and treatment in the hospital. Response to treatment: the patient's symptoms have markedly improved after treatment. 10/01 03:27 Order name: CBC with Diff; Complete Time: 04:12 rt 10/01 03:27 Order name: CMP; Complete Time: 04:12 rt 10/01 03:27 Order name: Troponin High Sensitivity; Complete Time: 04:12 rt 10/01 03:27 Order name: CPK; Complete Time: 04:12 rt 10/01 07:10 Order name: Basic Metabolic Panel EDMS 10/01 07:10 Order name: Basic Metabolic Panel EDMS 10/01 07:10 Order name: Basic Metabolic Panel EDMS 10/01 07:10 Order name: Basic Metabolic Panel EDMS 10/01 07:10 Order name: Basic Metabolic Panel EDMS 10/01 07:10 Order name: Basic Metabolic Panel EDMS 10/01 07:10 Order name: CBC with Automated Diff EDMS 10/01 07:10 Order name: CBC with Automated Diff EDMS 10/01 07:10 Order name: CBC with Automated Diff EDMS 10/01 07:11 Order name: CBC with Automated Diff EDMS 10/01 07:11 Order name: CBC with Automated Diff EDMS 10/01 07:11 Order name: CBC with Automated Diff EDMS 10/01 07:11 Order name: Magnesium EDMS 10/01 07:11 Order name: Magnesium EDMS 10/01 07:11 Order name: Magnesium EDMS 10/01 07:11 Order name: Magnesium EDMS 10/01 07:11 Order name: Magnesium EDMS 10/01 07:11 Order name: Magnesium EDMS 10/01 07:11 Order name: Phosphorus EDMS 10/01 07:11 Order name: Phosphorus EDMS 10/01 07:11 Order name: Phosphorus EDMS 10/01 07:11 Order name: Phosphorus EDMS 10/01 07:11 Order name: Phosphorus EDMS 10/01 07:11 Order name: Phosphorus EDMS 10/01 07:11 Order name: Troponin High Sensitivity EDMS 10/01 07:11 Order name: Troponin High Sensitivity EDMS 10/01 07:11 Order name: Troponin High Sensitivity EDMS 10/01 09:03 Order name: Liver (Hepatic) Function EDMS 10/01 09:03 Order name: Lipid Profile EDMS 10/01 04:36 Order name: Chest Single View XRAY rt 10/01 03:27 Order name: EKG; Complete Time: 03:28 rt 10/01 03:27 Order name: EKG - Nurse/Tech; Complete Time: 03:35 rt EC:06 Rate is 139 beats/min. Rhythm is regular, Sinus tachycardia with No ectopy. QRS [place] is rt Normal. [place] interval is normal. QRS interval is normal. QT interval is normal. No Q waves. T waves are Normal. No ST changes noted. Interpreted by me. Administered Medications: 03:48 Drug: NS 0.9% IV 1000 ml IV at 1 bolus Per protocol; 1000 mL bolus Route: IV; Rate: 1 nw1 bolus; Site: left antecubital; 04:23 Follow up: Response: No adverse reaction; IV Status: Completed infusion; IV Intake: la4 1000ml 03:49 Drug: Ativan IVP 2 mg IVP once Route: IVP; Site: left antecubital; nw1 04:22 Follow up: Response: No adverse reaction la4 Disposition Summary: 10/01/23 06:36 Hospitalization Ordered Notes: Hospitalization Status: Observation rt Provider: Yaakov Langley rt Condition: Stable rt Problem: new rt Symptoms: have improved rt Bed/Room Type: Standard rt Location: Telemetry/MedSurg (observation)(10/01/23 17:04) eb Room Assignment: 208(10/01/23 17:04) eb Diagnosis - Cocaine abuse rt - Subsequent non-ST elevation (NSTEMI) myocardial infarction rt Forms: - Medication Reconciliation Form rt - SBAR form rt - Leadership Thank You Letter rt Signatures: Dispatcher [employer] EDMD Stella Hoffman Nasrin King RN RN jw7 Krishna Coronado MD MD rt Ryanne Leonard RN RN nw1 Robson Prieto RN la4 Corrections: (The following items were deleted from the chart) 06:36 Telemetry/MedSurg (observation) rt eb 06:36 rt eb : 09:41 [facility] ER HOLD eb eb : 09:41 ERHOLD- eb eb
[2023-10-01] MEDS ORDERED: ACETAMINOPHEN 500 MG TAB PO PRN (07:03)
[2023-10-01] MEDS ORDERED: HALOPERIDOL LACT 5 MG/ML INJ IM PRN (07:03)
[2023-10-01] MEDS ORDERED: ONDANSETRON 4 MG/2 ML VIAL IV PRN (07:03)
--- NOTE | 2023-10-01 07:31 | P.HP ---
Certification for Inpatient Patient admitted to: Observation With expected LOS: <2 Midnights Patient will require the following post-hospital care: None Practitioner: I am a practitioner with admitting privileges, knowledge of patient current condition, hospital course, and medical plan of care. Services: Services provided to patient in accordance with Admission requirements found in Title 42 Section 412.3 of the Code of Federal Regulations Patient History Date of Service: 10/01/23 Reason for admission: Cocaine abuse, NSTEMI History of Present Illness: Alexander Saldivar is a 23-year-old male past medical history of anxiety and depressive disorder, who presents to the ED with complaints of chest pain and palpitations after cocaine use. Alexander reports consumption of large amounts of cocaine last night while feeling paranoid, he stopped around 1 AM. Presented to the ED with tachycardia but on evaluation heart rate is 98. He is in no acute distress, relaxed and calm at this time following Ativan administration in ED, Alert and oriented, conversing well. While in the ED he was given Ativan and 2 L normal saline. Initial vitals BP 114 / 84; Pulse 141; Resp 12 S; Temp 99.1(O); Pulse Ox 99% on R/A; Laboratory evaluation WBC 17.7, platelets 298, sodium 136, potassium 5.1, BUN/creatinine 17/1.34, close 90, troponin 116. Chest x-ray reports " cardiac silhouette is normal in size. Lungs are clear without consolidation, atelectasis, mass or edema. There is no pleural effusion,. There is no pneumothorax. There are no acute osseous findings." Alexander will be admitted to hospitalist service for further treatment of cocaine abuse, NSTEMI Allergies dicyclomine [From Bentyl] Allergy (Verified 09/06/22 06:33) Hives/Rash Review of Systems General: Other (Shaky) Eyes: Unremarkable ENT: Unremarkable Respiratory: Unremarkable Cardiovascular: Unremarkable Gastrointestinal: Nausea Genitourinary: Unremarkable Musculoskeletal: Unremarkable Integumentary: Unremarkable Neurological: Other (paranoid, dizziness, MICHEL) Physical Examination - Physical Exam General: Alert, In no apparent distress, Oriented x3 HEENT: Atraumatic, Normocephalic, PERRLA Neck: Supple, 2+ carotid pulse no bruit, JVD not distended Respiratory: Clear to auscultation bilaterally, Normal air movement Cardiovascular: No edema, Normal pulses, Regular rate/rhythm, Normal S1 S2 Capillary refill: <2 Seconds Gastrointestinal: Normal bowel sounds, Soft and benign Musculoskeletal: No clubbing, No swelling, No contractures Integumentary: No rashes, No breakdown, No significant lesion Neurological: Normal gait, Normal speech, Normal strength at 5/5 x4 extr, Normal tone - Studies Laboratory Data (last 24 hrs) 10/01/23 10/01/23 03:29 03:29 WBC 17.70 H Hgb 15.9 Hct 46.2 Plt Count 298 Sodium 136 Potassium 5.1 BUN 17 Creatinine 1.34 H Glucose 90 Total Bilirubin 0.3 AST 14 L ALT 30 Alkaline Phosphatase 89 Assessment and Plan - Plan Assessment and Plan NSTEMI Substance abuse IVF monitor electrolytes avoid calcium channel blockers and beta blockers trop 116, serial pending lipid panel and liver function pending Anxiety/depression no home medications Ativan and haldol PRN DVT PPx SCD for now Full code LOS 2 days Discharge Plan: Home Plan to discharge in: 48 Hours - Advance Directives Does patient have a Living Will: No Does patient have a Durable POA for Healthcare: No Time Spent Managing Pts Care (In Minutes): 55
[2023-10-01] MEDS: NA CHLORIDE 0.9% 1,000 ML IV SCH ×2 (07:49→21:53)
[2023-10-01] MEDS ORDERED: NA CHLORIDE 0.9% 1,000 ML ONE (07:56)
[2023-10-01] MEDS: LORazepam 2 MG/ML VIAL IV PRN ×4 (08:37→21:20)
[2023-10-01 08:58] LABS: Albumin 3.6 g/dL (3.4-5.0); Bilirubin Direct 0.1 mg/dL (0-0.2); Bilirubin Indirect, Calculated 0.3 mg/dL (0.2-0.8); Bilirubin Total 0.4 mg/dL (0.2-1.0)
[2023-10-01] MEDS ORDERED: INFLUENZA VACCINE (for 6+ mo) 0.5 ML DOSE IMVAC ONE (10:00)
[2023-10-01 18:28] VITALS: O2SAT 97
--- NOTE | 2023-10-01 19:04 | RAD REPORT ---
EXAM DESCRIPTION: XR CHEST 1 VIEW CLINICAL HISTORY: CHEST PAIN COMPARISON: None. TECHNIQUE: XR CHEST 1 VIEW 10/01/2023 4:36 AM BUSINESS PROJECT MANAGER FINDINGS: Cardiac silhouette is normal in size. Lungs are clear without consolidation, atelectasis, mass or edema. There is no pleural effusion. There is no pneumothorax. There are no acute osseous fin dings. IMPRESSION: Clear lungs. Electronically signed by: Jose L Strickland MD 10/01/2023 05:22 AM BUSINESS PROJECT MANAGER Due to temporary technical issues with the PACS/Fluency reporting system, reports are being signed by the in house radiologists without review as a courtesy to insure prompt reporting. The interpreting radiologist is fully responsible for the content of the report.
[2023-10-01 20:32] LABS: Absolute Lymphocytes (CBC) 2.8 K/uL (0.7-4.9); Lymphocytes % 30.5 % (15.3-44.8); MCV 90.1 fL (80-100); MPV 8.8 fL (7.6-11.3); Platelets 223 thou/uL (152-406); RBC Red Blood Cell Count 4.44 M/uL (4.33-5.43)
[2023-10-01] MEDS: NICOTINE 14 MG/PAT TD SCH (22:55)
[2023-10-02 04:49] LABS: Absolute Lymphocytes (CBC) 3.2 K/uL (0.7-4.9); Hematocrit 40.4 % (39.6-49.0); Lymphocytes % 34.9 % (15.3-44.8); MCV 89.8 fL (80-100); Platelets 215 thou/uL (152-406)
[2023-10-02 04:52] LABS: Magnesium 2.3 mg/dL (1.6-2.4); Phosphorus 3.3 mg/dL (2.5-4.9); Potassium 4.2 mEq/L (3.5-5.1)
[2023-10-02] MEDS: LORazepam 2 MG/ML VIAL IV PRN (06:29)
[2023-10-02] MEDS: NA CHLORIDE 0.9% 1,000 ML IV SCH (06:33)
[2023-10-02 08:23] VITALS: BMI 23.8
[2023-10-02] MEDS: NICOTINE 14 MG/PAT TD SCH (09:00)
--- NOTE | 2023-10-02 10:30 | P.DS ---
Admission Date: 10/01/23 Discharge Date: 10/02/23 Reason for Admission: Cocaine abuse, NSTEMI Brief History of Present Illness: Diagnosis NSTEMI Substance abuse Anxiety/depression disorder Hospital Course: Alexander is a pleasant 73-year-old male with a past medical history significant for anxiety, depressive disorder, and substance abuse who was admitted to the [facility] on 10/01/2020 for presents abuse, cocaine use, NSTEMI. Alexander presented to the ED with chest pain and palpitations after consuming a large amount of cocaine the night prior, causing paranoia feeling. He reports stopping cocaine use at 1 AM 10/01/23, troponin 116 at that time but it has trended flat since admission. Blood pressure and heart rate stable, ambulating independently, tolerating p.o. diet, complaining of some anxiety which is baseline. Alexander is alert and oriented, on room air, and stable for discharge. On 10/02/2020, Alexander was seen on morning rounds and deemed medically stable for discharge. Alexander was discharged with instructions to schedule follow-up appointments with PCP to establish care for further medical management, anxiety management, and substance abuse cessation. Alexander was not provided any prescriptions this admission. The patient was given the opportunity to ask questions and reported no further questions. Furthermore, all questions were answered to the best of my ability. A copy of this discharge summary will be sent to the above providers to facilitate continuity of care. Today, I personally spent 55 minutes with Alexander, of which greater than 50% of the time was spent in patient education, counseling, and coordination of care as described above. <Kaleigh Amaral - Last Filed: 10/02/23 10:38> Admission Date: 10/01/23 Discharge Date: 10/02/23 Hospital Course: Troponin trended down. Elevated troponin likely secondary to coronary emesis presents from cocaine use. Patient was asymptomatic during the hospital stay. He has clinically improved, vitals are stable. Stable BP. Patient is deemed stable for discharge. <mg may - Last Filed: 10/02/23 17:37> Disposition: ROUTINE DISCHARGE Discharge Condition: FAIR Vital Signs/Physical Exam: Temp Pulse Resp BP Pulse Ox 97.9 F 93 H 14 131/69 100 10/02/23 07:00 10/02/23 07:00 10/02/23 07:00 10/02/23 07:00 10/02/23 07:00 Laboratory Data at Discharge: WBC 9.20 thou/uL (4.3-10.9) 10/02/23 03:55 Hgb 13.5 g/dL (13.6-17.9) L 10/02/23 03:55 Hct 40.4 % (39.6-49.0) 10/02/23 03:55 Plt Count 215 thou/uL (152-406) 10/02/23 03:55 Sodium 138 mEq/L (136-145) 10/02/23 03:55 Potassium 4.2 mEq/L (3.5-5.1) D 10/02/23 03:55 BUN 14 mg/dL (7-18) 10/02/23 03:55 Creatinine 0.99 mg/dL (0.70-1.30) 10/02/23 03:55 Glucose 87 mg/dL (74-106) 10/02/23 03:55 Phosphorus 3.3 mg/dL (2.5-4.9) 10/02/23 03:55 Magnesium 2.3 mg/dL (1.6-2.4) 10/02/23 03:55 Total Bilirubin 0.4 mg/dL (0.2-1.0) 10/01/23 08:10 AST 15 U/L (15-37) 10/01/23 08:10 ALT 24 U/L (16-61) 10/01/23 08:10 Alkaline Phosphatase 68 U/L (45-117) D 10/01/23 08:10 Triglycerides 85 mg/dL (<150) 10/01/23 08:10 Cholesterol 166 mg/dL (<200) 10/01/23 08:10 HDL Cholesterol 44 mg/dL (40-60) 10/01/23 08:10 Cholesterol/HDL Ratio 3.77 10/01/23 08:10 <Kaleigh Amaral - Last Filed: 10/02/23 10:38> Vital Signs/Physical Exam: Temp Pulse Resp BP Pulse Ox 97.7 F 78 16 137/74 97 10/02/23 12:00 10/02/23 12:00 10/02/23 12:00 10/02/23 12:00 12/03/23 12:00 Laboratory Data at Discharge: WBC 9.20 thou/uL (4.3-10.9) 10/02/23 03:55 Hgb 13.5 g/dL (13.6-17.9) L 10/02/23 03:55 Hct 40.4 % (39.6-49.0) 10/02/23 03:55 Plt Count 215 thou/uL (152-406) 10/02/23 03:55 Sodium 138 mEq/L (136-145) 10/02/23 03:55 Potassium 4.2 mEq/L (3.5-5.1) D 10/02/23 03:55 BUN 14 mg/dL (7-18) 10/02/23 03:55 Creatinine 0.99 mg/dL (0.70-1.30) 10/02/23 03:55 Glucose 87 mg/dL (74-106) 10/02/23 03:55 Phosphorus 3.3 mg/dL (2.5-4.9) 10/02/23 03:55 Magnesium 2.3 mg/dL (1.6-2.4) 10/02/23 03:55 Total Bilirubin 0.4 mg/dL (0.2-1.0) 10/01/23 08:10 AST 15 U/L (15-37) 10/01/23 08:10 ALT 24 U/L (16-61) 10/01/23 08:10 Alkaline Phosphatase 68 U/L (45-117) D 10/01/23 08:10 Triglycerides 85 mg/dL (<150) 10/01/23 08:10 Cholesterol 166 mg/dL (<200) 10/01/23 08:10 HDL Cholesterol 44 mg/dL (40-60) 10/01/23 08:10 Cholesterol/HDL Ratio 3.77 10/01/23 08:10 <mg may - Last Filed: 10/02/23 17:37> Diet: Regular Activity: Ad santiago Time spent managing pt's care (in minutes): 55 <Kaleigh Amaral - Last Filed: 10/02/23 10:38> <mg may - Last Filed: 10/02/23 17:37> Physician Discharge Instructions: Physical Exam General: Alert, In no apparent distress, Oriented x3 HEENT: Atraumatic, Normocephalic, PERRLA Neck: Supple, 2+ carotid pulse no bruit, JVD not distended Respiratory: Clear to auscultation bilaterally, Normal air movement Cardiovascular: No edema, Normal pulses, Regular rate/rhythm, Normal S1 S2 Capillary refill: <2 Seconds Gastrointestinal: Normal bowel sounds, Soft and benign Musculoskeletal: No clubbing, No swelling, No contractures Integumentary: No rashes, No breakdown, No significant lesion Neurological: Normal gait, Normal speech, Normal strength at 5/5 x4 extr, Normal tone 1. Please call and schedule a follow-up appointment with your PCP in 3-5 days, establish care with a PCP if you do not have one already -For medical management, anxiety management, and substance abuse cessation programs 2. regular diet 3. no activity restrictions 4. no new medications this admission
[2023-10-02 12:36] VITALS: BP 137/74; TEMP 97.7
--- NOTE | 2023-10-04 13:40 | EKG ---
Test Date: 2023-10-01 Test Time: 03:22:51 Science Analyst: JESSE MEASUREMENT RESULTS: Intervals: Rate: 139 HI: 118 QRSD: 80 QT: 298 QTc: 453 Anderson: P: 34 HI: 118 QRS: 91 T: 55 INTERPRETIVE STATEMENTS: Sinus tachycardia Otherwise normal ECG Compared to ECG 04/16/2023 23:56:20 Sinus rhythm no longer present Sinus arrhythmia no longer present Electronically Signed On 10-04-23 13:30:48 SPECIAL EDUCATION CASE MANAGER by Sanford Lindquist
== END 2023-10-02 12:06 | disposition home or self-care (01) ==
LOC: ER 03:13 → ERHOLD 07:12 → 2ND 17:21
PROVIDERS: ADMIT Internal Medicine; ATTEND Internal Medicine
DX: I21.4 Non-ST elevation (NSTEMI) myocardial infarction (principal); F14.10 Cocaine abuse, uncomplicated; F41.9 Anxiety disorder, unspecified; F32.A Depression, unspecified
CPT/HCPCS: 96361; 93005; 85025 ×3; 80048; 36415 ×2; 83735; 82550; 84100; 80061; 80076; 84484 ×3; 80053; 71045; 96374; 99285; J7030 ×4; G0378 ×4